=== PATIENT | male | born 1950 | race Caucasian/White ===

== ENCOUNTER → 2025-04-26 | Outpatient (CLI) | payer SELFPAY, OTHER ==
[2025-04-26 11:51] LABS: Hematocrit 39.0 % (40-54); Hemoglobin 12.8 g/dL (13.0-16.5); Immature Granulocytes Count 0.090 X10^3/uL (0.0-0.0); Mean Corp Hgb Conc 32.8 g/dL (32-36); Mean Corpuscular Volume 89.7 fL (80-94); Mean Platelet Vol. 9.7 fl (6.2-12.0); NRBC Flagged by Analyzer 0 % (0-5); Platelet Count 194 K/mm3 (150-450); RBC Distribution Width CV 14.1 % (11.6-14.6); RBC Distribution Width SD 45.6 fl (35.1-43.9); Red Blood Count 4.35 M/mm3 (4.6-6.2); White Blood Count 5.7 K/mm3 (4.4-11.0)
[2025-04-26 12:33] LABS: Anion Gap 9 (5-15); BUN 25 mg/dL (4-19); BUN/Creat Ratio 21.6 RATIO (10-20); Calcium,Total 9.4 mg/dL (7.6-11.0); Carbon Dioxide 25.6 mmol/L (21.0-32.0); Chloride 106 mmol/L (98-108); Glucose 99 mg/dL (70-99); Potassium 4.5 mmol/L (3.3-5.1)
== END | disposition home or self-care (01) ==
PROVIDERS: PCP Family Medicine; Referring Provider Internal Medicine Cardiovascular Disease; Visit Provider Internal Medicine Cardiovascular Disease
DX: R06.09 Other forms of dyspnea (principal); R06.02 Shortness of breath; R53.83 Other fatigue; I10 Essential (primary) hypertension; E78.5 Hyperlipidemia, unspecified
CPT/HCPCS: 36415; 71046; 80048; 85025

== ENCOUNTER → 2025-05-17 | Outpatient (CLI) | payer SELFPAY, OTHER ==
--- NOTE | 2025-05-17 06:42 | ECHOD_ITS ---
Reason For Study Reason For Study: LBBB, HOCM Procedure This was a 2D Doppler, Color Flow transthoracic echocardiogram. Exam performed in department. Left Ventricle Normal LV size. Severe eccentric left ventricular hypertrophy. The left ventricular ejection fraction is 55 %. Stage 1 diastolic dysfunction. Resting LV gradient 52 mmHg. Valsalva LV gradient 95 mmHg. No regional wall motion abnormalities noted. Right Ventricle Normal RV size. Normal systolic function. Atria Normal left atrium. Normal right atrium. Mitral Valve Systolic anterior motion of the mitral valve. Mild (1+) eccentric mitral valve insufficiency. Tricuspid Valve Normal tricuspid valve. Mild (1+) tricuspid valve insufficiency. Pulmonary artery systolic pressure is 34 mmHg. Aortic Valve Trisinus/trileaflet aortic valve. Pulmonic Valve Normal pulmonic valve. Great Vessels Normal aortic root. The pulmonary artery is normal size. Inferior vena cava collapse with respiration. Pericardium/Pleural No pericardial effusion. MMode/2D Measurements & Calculations LVIDd: 4.1 cm IVSd: 2.1 cm Ao root diam: 3.4 cm LVIDs: 2.9 cm LVPWd: 1.3 cm RVDd: 3.4 cm FS: 30.4 % asc Aorta Diam: 3.9 cm LAV(MOD-bp): 58.2 ml LVAd ap4: 30.7 cm2 LAV(MOD-bp) Indexed: 31.3 ml/m2 LVLd ap4: 9.1 cm LAV(MOD-sp2): 63.0 ml EDV(MOD-sp4): 84.2 ml LAV(MOD-sp4): 43.7 ml EDV(sp4-el): 87.6 ml LVAs ap4: 19.2 cm2 LVLs ap4: 7.7 cm ESV(MOD-sp4): 40.5 ml ESV(sp4-el): 40.4 ml EF(MOD-sp4): 51.9 % EF(sp4-el): 53.9 % LVAd ap2: 28.6 cm2 SV(MOD-sp4): 43.7 ml SV(MOD-sp2): 53.3 ml LVLd ap2: 8.4 cm SI(MOD-sp4): 23.5 ml/m2 SI(MOD-sp2): 28.7 ml/m2 EDV(MOD-sp2): 84.6 ml EDV(sp2-el): 82.4 ml LVAs ap2: 16.0 cm2 LVLs ap2: 7.0 cm ESV(MOD-sp2): 31.4 ml ESV(sp2-el): 31.0 ml EF(MOD-sp2): 63.0 % SV(sp4-el): 47.2 ml LA dimension(2D): 3.5 cm LA A4 area: 15.5 cm2 RA A4 area: 13.6 cm2 TAPSE: 1.8 cm Time Measurements MV dec time: 0.31 sec Doppler Measurements & Calculations MV E max nadeem: 54.3 cm/sec Lat Peak E' Nadeem: 5.7 cm/sec Med Peak E' Nadeem: 4.6 cm/sec MV A max nadeem: 80.1 cm/sec E/E' lat: 9.4 E/E' med: 11.7 MV E/A: 0.68 MV V2 max: 91.2 cm/sec MV P1/2t max nadeem: 70.5 cm/sec Ao V2 max: 359.4 cm/sec MV max P.3 mmHg MV P1/2t: 107.7 msec Ao max P.7 mmHg MV V2 mean: 43.2 cm/sec Ao V2 mean: 237.6 cm/sec MV mean P.91 mmHg MV dec slope: 191.8 cm/sec2 Ao mean P.8 mmHg MV V2 VTI: 27.0 cm MVA(P1/2t): 2.0 cm2 Ao V2 VTI: 60.6 cm MR max nadeem: 643.8 cm/sec PA V2 max: 238.1 cm/sec TR max nadeem: 272.1 cm/sec MR max P.8 mmHg TR max P.6 mmHg ECHO/Echo Complete Interpretation Summary Normal LV size. The left ventricular ejection fraction is 55 %. Stage 1 diastolic dysfunction. Severe eccentric left ventricular hypertrophy. Pulmonary artery systolic pressure is 34 mmHg. Resting LV gradient 52 mmHg. Valsalva LV gradient 95 mmHg. The global longitudinal strain is borderline abnormal. Ordering Physician: Thiago Ambrocio Referring Physician: Galdino Brian Performed By: Barbara Seay, RDCS, RVT
== END | disposition home or self-care (01) ==
LOC: CVS 06:41
PROVIDERS: PCP Family Medicine; Referring Provider Internal Medicine Cardiovascular Disease; Visit Provider Internal Medicine Cardiovascular Disease
DX: I42.1 Obstructive hypertrophic cardiomyopathy (principal); I44.7 Left bundle-branch block, unspecified
CPT/HCPCS: 93306; Q9957; A4216

== ENCOUNTER 2025-05-20 07:09 | Day surgery (SDC) | payer SELFPAY, OTHER ==
[2025-05-17 08:11] VITALS: BMI 24.6
--- OUTSIDE RECORDS SUMMARY | 2025-05-20 07:27 | XMS RPT_ITS | CCD ---
Author Organization [facility] Care Team Providers Care Primary Counselor Name Role Phone Dexter SANTOS, Zeb Little Primary Care Provider PHYSICIAN, PATIENT UNSURE Primary Care Physician Unavailable DEXTER SANTOS, MARIO MANNING Primary Care Physician [phone] RENETTA LIU Attending U fabiana PHYSICIAN, PATIENT UNSURE Primary Care JUANCHO Montaño Attending Unavailab Jodi SANTOS, MARIO MANNING Primary Care Unavailab carpenter PHYSICIAN, PATIENT UNSURE Primary Care RENETTA Baez Attending U fabiana PHYSICIAN, PATIENT UNSURE Primary Care Grace Gottlieb MD Attending Unavailable RENETTA LIU Referring U JOSE Elias MD Attending Unavailable PHYSICIAN, PATIENT UNSURE Primary Care JULIETA Araujo Attending Unavailable DONALD SYKES Referring Unavailable ZEB RENTERIA Primary Care Unavailable DONALD SYKES Attending Unavailable ZEB RENTERIA Primary Care Unavailable DONALD SYKES Attending Unavailable ZEB RENTERIA Primary Care Unavailable DONALD SYKES Referring Unavailable JULIETA RAMIREZ Attending Unavailable Dexter SANTOS, Zeb Little Primary Care Provider DULCE GURROLA-REGIS Amaya Unavailable [phone] Solo DAS MD Unavailable GERARD COVARRUBIAS Unavailable Unavailable RAFFAELE SELBY MD Unavailable [phone] ASHOK MIR MD Unavailable [phone] LOLY BOOTH RN Unavailable Unavailable JOSE MIGUEL MILLER Unavailable Unavailable Parul Renteria Unavailable Unavailable Grace RENTERIA MD Unavailable RAFFAELE JARAMILLO Unavailable Unavailable Galina Jones Unavailable Unavailable Unavailable Unavailable Amanda Renteria CNP Primary Care Provider DULCE GURROLA-Jose Luis, REGIS Askew Unavailable Unav ailable PAUL MORRIS, NIKKI Unavailable Unavaila ble DONALD SYKES Attending Unavailable DONALD SYKES Primary Care Unavailable DONALD SYKES Admitting Unavailable Solo DAS Consulting Unavailable PROVIDER, UNKNOWN Consulting Unavailable PROVIDER, UNKNOWN Consulting Unavailable PROVIDER, UNKNOWN Consulting Unavailable DONALD SYKES Attending Unavailable DONALD SYKES Referring Unavailable AMANDA RENTERIA Primary Care Unavailable Rafiq Das Referring Unavailable Roc, Rafiq Primary Care Unavailable LollyAlverto martinezril Attending Unavailable Roc, Rafiq Primary Care Unavailable Lolly, Conroe Referring Unavailable Lolly, Conroe Attending Unavailable Roc, Rafiq Primary Care Unavailable Lolly, Thiago Attending Unavailable Lolly, Conroe Attending Unavailable Korshalini, Rafiq Primary Care Unavailable Lolly, Conroe Referring Unavailable Medications Current Medications Medication Drug Class(es) Dates Sig (Normalized) Sig (Original) amiodarone hydrochloride 200 mg oral tablet (20 sources) Antiarrhythmic Start: 09-03-2021 End: 02-28-2025 take 1 tablet by mouth once daily amiodarone (PACERONE) 200 mg tablet Indications: Stented coronary artery Take 1 tablet by mouth once daily. 90 tablet 3 02/28/2025 Active Comment on above: Take 1 tablet by norma once daily. aspirin 81 mg delayed release oral tablet (20 sources) Platelet Aggregation Inhibitor, Nonsteroidal Anti-inflammatory Drug Start: 08-17-2022 aspirin 81 mg oral delayed release tablet Dose : 81 mg = 1 tab(s), Oral, qDay, # 90 tab(s), 0 Refill(s) Start Date: 08/17/22 Status: Ordered Comment on above: Take 81 mg by mouth once daily. atorvastatin 40 mg oral tablet (20 sources) HMG-CoA Reductase Inhibitor Start: 08-17-2022 Lipitor 40 mg oral tablet Dose : 80 mg = 2 tab(s), Oral, qDay, # 90 tab(s), 0 Refill(s) Start Date: 08/17/22 Status: Ordered Start: 09-03-2021 End: 02-28-2025 take 2 tablets by mouth once daily in the evening atorvastatin (LIPITOR) 40 mg tablet Indications: Hyperlipidemia LDL goal TAKE 2 TABLETS BY MOUTH EVERY EVENING 180 tablet 3 02/28/2025 Active Comment on above: TAKE 2 TABLETS BY MO UTH EVERY EVENING ferrous sulfate 325 mg oral tablet (3 sources) iron 325 mg (65 mg iron) tablet ; 1 daily (325 mg (65 mg iro) 24 hr isosorbide mononitrate 30 mg extended release oral tablet (12 sources) Nitrate Vasodilator Start: 2 End: 6 take 1 tablet by mouth once daily isosorbide mononitrate ER (IMDUR) 30 mg 24 hr tablet Take 1 tablet by mouth once daily. 90 tablet 3 02/28/2025 02/28/2026 Active Comment on above: Take 1 tablet by norma th once daily. Take 30 mg by mouth once daily. lisinopril 10 mg oral tablet (20 sources) Angiotensin Converting Enzyme Inhibitor Start: 1 End: 5 take 1 tablet by mouth once daily lisinopril (ZESTRIL) 10 mg tablet Take 1 tablet by mouth once daily. 90 tablet 3 02/28/2025 Active Comment on above: Take 1 tablet by norma once daily. Take 10 mg by mouth once daily. Cardio Completed/Discontinued Medications Medication Drug Class(es) Dates Sig (Normalized) Sig (Original) acetaminophen 325 mg / HYDROcodone bitartrate 5 mg oral tablet (6 sources) Opioid Agonist Start: 07-27-2013 End: 03-08-2014 take 1-2 tablets by mouth four times daily as needed for pain HYDROCODONE-ACETAMI NOPHEN, 5-325MG (Oral Tablet) ; 1-2 Tablet four times daily as needed for pain for 0 days Quantity: 30 {Tablet} Refills: 0 Ordered: 08-Mar-2014 Start: 27-Jul-2013 End: 08-Mar-2014 Status: Inactive Comments: Medication taken as needed. Comment on above: Medication taken as needed. acetaminophen 325 mg / oxyCODONE hydrochloride 5 mg oral tablet (6 sources) Opioid Agonist Start: 02-20-2020 End: 02-27-2020 take 1 tablet by mouth every four hours as needed oxyCODONE-Acetamino phen 5-325 MG Oral Tablet ; 1 (one) Tablet every four hours, as needed for 7 days Quantity: 28 {Tablet} Refills: 0 Ordered: 26-Mar-2020 MD Grace RENTERIA Start: 20-Feb-2020 End: 27-Feb-2020 Status: Inactive Comments: Medication taken as needed. Comment on above: Medication taken as needed. acyclovir 400 mg oral tablet (6 sources) Herpesvirus Nucleoside Analog DNA Polymerase Inhibitor, Herpes Simplex Virus Nucleoside Analog DNA Polymerase Inhibitor, Herpes Zoster Virus Nucleoside Analog DNA Polymerase Inhibitor Start: 07-18-2019 End: 07-25-2019 take 2 tablets by mouth five times daily Zovirax 400 MG Oral Tablet ; 2 (two) Tablet five times per day for 7 days Quantity: 70 {Tablet} Refills: 0 Ordered: 09-Aug-2019 MD Grace RENTERIA Start: 18-Jul-2019 End: 25-Jul-2019 Status: Inactive amoxicillin 500 mg oral capsule (6 sources) Penicillin-class Antibacterial Start: 08-09-2018 End: 08-19-2018 take 1 tablet by mouth three times daily Amoxicillin 500 MG Oral Capsule ; 1 (one) Tablet three times daily for 10 days Quantity: 30 {Capsule} Refills: 0 Ordered: 09-Oct-2018 MD Grace RENTERIA Start: 09-Aug-2018 End: 19-Aug-2018 Status: Inactive Comments: medication to be dispensed in office Comment on above: medication to be dis pensed in office colistin 3 mg/ml / hydrocortisone 10 mg/ml / neomycin 3.3 mg/ml / thonzonium bromide 0.5 mg/ml otic suspension (6 sources) Aminoglycoside Antibacterial, Corticosteroid Start: 06-13-2010 End: 06-19-2010 CORTISPORIN-TC, 3.3-3-10-0.5MG/ML (Otic Suspension) ; 3 (three) Drop(s) three times daily for 6 days Refills: 0 Ordered: 23-Jun-2010 MD ASHOK MIR Start: 13-Jun-2010 End: 19-Jun-2010 Status: Inactive Comments: disp Comment on above: disp cyclobenzaprine hydrochloride 10 mg oral tablet (12 sources) Muscle Relaxant Start: 02-20-2020 End: 03-01-2020 take 0.5-1 tablets by mouth three times daily Cyclobenzaprine HCl 10 MG Oral Tablet ; 1/2-1 Tablet three times daily for 10 days Quantity: 30 {Tablet} Refills: 0 Ordered: 20-Feb-2020 MD Grace RENTERIA Start: 20-Feb-2020 End: 01-Mar-2020 Status: Inactive Start: 07-27-2013 End: 03-08-2014 take 1 tablet by mouth three times daily as needed CYCLOBENZAPRINE HCL, 10MG (Oral Tablet) ; 1 (one) Tablet three times daily as needed muscle relaxant for 0 days Quantity: 20 {Tablet} Refills: 1 Ordered: 08-Mar-2014 Start: 27-Jul-2013 End: 08-Mar-2014 Status: Inactive Comments: Medication taken as needed. Comment on above: Medication taken as needed. fluticasone propionate 0.05 mg/actuat metered dose nasal spray (6 sources) Corticosteroid Start : 03-27 End: 07-27 FLUTICASONE PROPIONATE, 50MCG/ACT (Nasal Suspension) ; 2 (two) spray(s) at bedtime for 30 days Quantity: 1 {bottle(s)} Refills: 5 Ordered: 27-Jul-2013 Start: 27-Mar-2012 End: 27-Jul-2013 Status: Inactive gabapentin 300 mg oral capsule (6 sources) Anti-epileptic Agent Start : 03-26 End: 06-24 Gabapentin 300 MG Oral Capsule ; 2 (two) Capsule before bed for 90 days Quantity: 180 {Capsule} Refills: 0 Ordered: 26-Mar-2020 MD Grace RENTERIA Start: 26-Mar-2020 End: 24-Jun-2020 Status: Inactive Comments: Do not fill >89 days from date of rx.NEVA Harper Comment on above: Do not fill >89 days from date of rx.NEVA Harper hydroCHLOROthiazide 12.5 mg oral tablet (7 sources) Thiazide Diuretic Start : 12-03 End: 07-26 take 1 tablet by mouth once daily hydroCHLOROthiazide (HYDRODIURIL, ESIDRIX) 12.5 mg tablet Take 1 tablet by mouth once daily. 90 tablet 5 12/03/2020 07/26/2022 Discontinued End: 09-21-2024 take 1 capsule by mouth once daily hydroCHLOROthiazide 12.5 MG Oral Capsule ; 1 daily (on M, W, F) (12.5 MG) End: 21-Sep-2024 Status: Inactive Comment on above: Take 1 tablet by [facility] once daily. hydroCHLOROthiazide 12.5 mg / lisinopril 10 mg oral tablet (6 sources) Thiazide Diuretic, Angiotensin Converting Enzyme Inhibitor take 1 tablet by mouth once daily Lisinopril-Hydr ochlorothiazide 10-12.5 MG Oral Tablet ; 1 daily (10-12.5 MG) Status: Inactive hydrocortisone 10 mg/ml / neomycin 3.5 mg/ml / polymyxin b [id number] unt/ml otic suspension (12 sources) Aminoglycoside Antibacterial, Polymyxin-class Antibacterial, Corticosteroid Start: 04-21-20 End: 09-22-19 neomycin-polymy lexi-hydrocort 3.5 mg-10,000 unit/mL-1 % ear drops,susp ; 1 (one) Metric Drop three times daily for 10 days Quantity: 1 {Each} Refills: 1 Ordered: 21-Sep-2024 Start: 21-Apr-2022 End: 21-Sep-2024 Status: Inactive Comments: 1 bottle Start: 04-21-2022 Neomycin-Polym yxin-HC 3.5-05024-1 Otic Suspension ; 1 (one) Metric Drop three times daily for 10 days Quantity: 1 {Each} Refills: 1 Ordered: 21-Apr-2022 MD Grace RENTERIA Start: 21-Apr-2022 Comments: 1 bottle End: 09-21-2024 Kjptnpwy-[id number]-GH 1 % Ot ic Solution ; 2-3 drops BID prn (1 %) End: 21-Sep-2024 Status: Inactive Comment on above: 1 bottle naproxen 500 mg oral tablet (12 sources) Nonsteroidal Anti-inflammatory Drug Start: 01-15-2015 End: 06-04-2015 take 1 tablet by mouth twice daily as needed NAPROXEN, 500MG (Oral Tablet) ; 1 (one) Tablet two times daily, as needed for 0 days Quantity: 30 {Tablet} Refills: 0 Ordered: 04-Jun-2015 Start: 15-Jan-2015 End: 04-Jun-2015 Status: Inactive Comments: Medication taken as needed. meds to be dispensed in office Start: 03-08-2014 End: 03-15-2014 take 1 tablet by mouth twice daily as needed NAPROXEN, 500MG (Oral Tablet) ; 1 (one) Tablet two times daily, as needed for 7 days Quantity: 14 {Tablet} Refills: 0 Ordered: 15-Mar-2014 MD RAFFAELE SELBY Start: 08-Mar-2014 End: 15-Mar-2014 Status: Inactive Comments: Medication taken as needed. Comment on above: Medication taken as needed. Medication taken as needed. meds to be dispensed in office oxyCODONE hydrochloride 10 mg oral tablet (6 sources) Opioid Agonist take 1 tablet by mouth once daily oxyCODONE HCl 10 MG Oral Tablet ; 1 daily (10 MG) Status: Inactive predniSONE 10 mg oral tablet (12 sources) Start: 5 End: 5 take 1 tablet by mouth once daily at mealtime PREDNISONE (VENECIA), 10MG (Oral Tablet) ; 1 (one) Tablet take as directed for 12 days Quantity: 30 {Tablet} Refills: 0 Ordered: 03-Jun-2015 MD RAFFAELE SELBY Start: 15-Jan-2015 End: 27-Jan-2015 Status: Inactive Comments: Days 1,2,3 = 4 tabs daily; Days 4, 5, 6 = 3 tabs daily; Days 7, 8, 9 = 2 tabs daily; Days 10,11,12 = 1 tab daily; Take with meals. May take each day's dose at one time.meds to be dispensed in office Start: 07-27-2013 End: 03-08-2014 take 3 tablets by mouth once daily, then take 2 tablets by mouth once daily, then take 1 tablet by mouth once daily PREDNISONE, 20MG (Oral Tablet) ; 3 (three) Tablet daily for 4 days, then 2 daily for 4 days, then 1 daily until gone for 0 days Quantity: 25 {Tablet} Refills: 0 Ordered: 08-Mar-2014 Start: 27-Jul-2013 End: 08-Mar-2014 Status: Inactive Comment on above: Days 1,2,3 = 4 tabs daily; Days 4, 5, 6 = 3 tabs daily; Days 7, 8, 9 = 2 tabs daily; Days 10,11,12 = 1 tab daily; Take with meals. May take each day's dose at one time.meds to be dispensed in office tiZANidine 2 mg oral tablet (6 sources) Central alpha-2 Adrenergic Agonist End: 09-21-2024 take 1 tablet by mouth once daily tiZANidine HCl 2 MG Oral Tablet ; 1 daily (2 MG) End: 21-Sep-2024 Status: Inactive Problems Active Problems Problem Classification Problem Date Documented Da te Episodic/Chronic Conduction disorders (1 source) Left bundle-branch block, unspecified; Translations: [Left bundle-branch block, unspecified] Onset: 05-07-2025 Chronic Coronary atherosclerosis and other heart disease (4 sources) Coronary arteriosclerosis; Translations: [Atherosclerotic heart disease of [place] coronary artery without angina pectoris] Onset: 08-23-2022 08-17-2022 Chronic Disorders of lipid metabolism (11 sources) Hyperlipidemia; Translations: [Hyperlipidemia, unspecified] Onset: 02-28-2023 Chronic Essential hypertension (20 sources) Benign essential hypertension; Translations: [Essential (primary) hypertension] Onset: 09-01-2021 Chronic Heart valve disorders (4 sources) Aortic valve stenosis; Translations: [Nonrheumatic aortic (valve) stenosis] Onset: 08-23-2022 08-17-2022 Chronic Immunizations and screening for infectious disease (12 sources) Requires diphtheria, tetanus and pertussis vaccination; Translations: [Encounter for immunization] 12-03-2019 Episodic Malaise and fatigue (1 source) Other fatigue; Translations: [Other fatigue] Onset: 04-26-2025 Episodic Open wounds of extremities (12 sources) Laceration of left index finger; Translations: [Laceration without foreign body of left index finger without damage to nail, initial encounter] 12-03-2019 Episodic Other connective tissue disease (12 sources) Tendinitis of left rotator cuff; Translations: [Other shoulder lesions, left shoulder] 12-09-2021 Episodic Other ear and sense organ disorders (12 sources) Otorrhea of left ear; Translations: [Otorrhea, left ear] 04-21-2022 Episodic Other ear and sense organ disorders (6 sources) Impacted cerumen of bilateral ears; Translations: [Impacted cerumen, bilateral] 06-13-2010 Episodic Other injuries and conditions due to external causes (6 sources) Foreign body in right ear; Translations: [Foreign body in right ear, initial encounter] 09-21-2024 Episodic Comment on above: Removed Other lower respiratory disease (5 sources) Dyspnea; Translations: [Shortness of breath] Onset: 08-02-2022 Episodic Other lower respiratory disease (12 sources) Snoring; Translations: [Snoring] 03-27-2012 Episodic Other lower respiratory disease (1 source) Shortness of breath; Translations: [SOB (shortness of breath)] Onset: 02-28-2025 Episodic Other lower respiratory disease (1 source) Other forms of dyspnea; Translations: [Other forms of dyspnea] Onset: 05-06-2025 Episodic Other nervous system disorders (12 sources) Postoperative pain ; Translations: [Other acute postprocedural pain] 02-20-2020 Episodic Other non-epithelial cancer of skin (20 sources) Unspecified malignant neoplasm of skin, unspecified; Translations: [Malignant neoplasm of skin] Onset: 01-19-2022 Episodic Other non-traumatic joint disorders (12 sources) Pain in right shoulder; Translations: [Pain in joint, shoulder region] 06-04-2015 Episodic Other upper respiratory disease (6 sources) Allergic rhinitis due to pollen; Translations: [Allergic rhinitis due to pollen] 03-27-2012 Chronic Other upper respiratory infections (18 sources) Posterior rhinorrhea; Translations: [Postnasal drip] 11-14-2020 Episodic Otitis media and related conditions (12 sources) Infection of ear; Translations: [Otitis media, unspecified, unspecified ear] 02-20-2020 Episodic Ana-; endo-; and myocarditis; cardiomyopathy (except that caused by tuberculosis or sexually transmitted disease) (1 source) Obstructive hypertrophic cardiomyopathy; Translations: [Obstructive hypertrophic cardiomyopathy] Onset: 05-07-2025 Chronic Residual codes; unclassified (1 source) Never smoked tobacco; Translations: [Other specified health status] Episodic Residual codes; unclassified (4 sources) Non-smoker; Translations: [Other specified health status] Episodic Residual codes; unclassified (4 sources) Personal history of other medical treatment; Translations: [Hx of cardiovascular stress test] Onset: 03-03-2020 Episodic Residual codes; unclassified (2 sources) Other specified health status; Translations: [Non-smoker] Onset: 02-28-2023 Episodic Spondylosis; intervertebral disc disorders; other back problems (12 sources) Intervertebral disc disorder; Translations: [Unspecified thoracic, thoracolumbar and lumbosacral intervertebral disc disorder] Onset: 01-02-2020 03-03-2020 Chronic Spondylosis; intervertebral disc disorders; other back problems (20 sources) Low back pain; Translations: [Lumbago] 03-26-2020 Episodic Sprains and strains (12 sources) Sprain of lumbosacral (joint) (ligament) 03-08-2014 Episodic Unclassified (6 sources) Ear Discharge - Note for "Ear discharge": Pt. states has chronic intermittent drainage from left ear - seen by Abi Hand in [place], [place] and prescribed Neomycin/PolymixinB and Hydrocortisone Otic - uses 2-3 drops BID prn ear drainage up to 10 days. 04-21-2022 Viral infection (6 sources) Herpes zoster without complication; Translations: [Zoster without complications] 07-18-2019 Episodic Past or Other Problems Problem Classification Problem Date Documented Da te Episodic/Chronic Coronary atherosclerosis and other heart disease (20 sources) Stented coronary artery; Translations: [Presence of coronary angioplasty implant and graft] Onset: 03-03-2020 Episodic Headache; including migraine (6 sources) Headache; including migraine 08-09-2018 Residual codes; unclassified (17 sources) History of cardiac catheterization; Translations: [Other specified postprocedural states] Onset: 05-16-2000 Episodic Residual codes; unclassified (20 sources) Past history of procedure; Translations: [Personal history of other medical treatment] Onset: 03-01-2019 Episodic Residual codes; unclassified (2 sources) Other specified postprocedural states; Translations: [Hx of cardiac catheterization] Onset: 03-03-2020 Episodic Unclassified (6 sources) Suture removal - The sutures were placed here. The date the sutures were placed was 01/19/2022. The suture location is Back of Right neck. 02-02-2022 Unclassified (6 sources) !Patient notification of lab results - Dr. Renteria. 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 They said the edges were clear of cancer so it was completely removed and should not come back.Let us know if you have any questions. 01-22-2022 Unclassified (6 sources) Skin lesion - Note for "Skin lesion": Neck - here for excision 01-19-2022 Unclassified (6 sources) Arm pain - Note for "Arm pain": For about 2 months pt has had a sore left arm. Limited range of motion reaching back , lifting up shoulder/arm directly and reaching forward and up. 06-08-2022 Unclassified (6 sources) Cough - The onset of the cough has been gradual and has been occurring for 1 month. The cough is characterized as dry. The amount of sputum produced is scanty. The symptoms are aggravated by supine posture. The symptoms have been associated with runny nose, while the symptoms have not been associated with chest pain. Note for "Cough": Pt. denies fever. He does have drainage in the back of his throat. He has tried OTC medication without relief. 11-14-2020 Unclassified (6 sources) Transition into care - The patient is transitioning into care from another physician (Back surgery performed in [place].). Note for Transition into care": Patient has incisions left lower abdomen and midline lower spine. States that they are healing well. Keeping covered with water proof bandages.Pt reports having episodes of constipation and then loose stool after. States that appetitive has return somewhat. 02-20-2020 Unclassified (6 sources) Pre-Op Visit - The procedure scheduled is a Lumbar cages/disc replacement x3 on 01/10/2020. The surgeon for the procedure will be Surgery in [place]. Note for "Pre-op visit": Pt. has pain in the top of his foot. This is a 35 year old injury. Pt. needs an order for MRSA test and Lumbar MRI. 12-12-2019 Unclassified (6 sources) Immunization - Adacel was given. An immunization information sheet was provided. Note for "For immmunization": Pt had sutures this am. Adacel not given then. 12-03-2019 Unclassified (6 sources) Laceration - The injury occurred on - Date: 12/02/2019. It is located on the fingers. The patient's tetanus immunization is not up to date. Note for "Laceration": left index finger 12-03-2019 Unclassified (6 sources) Sciatica - Note for "Sciatica": RLE pain, difficulty sleeping, needs refill of Gabapentin. Awaits lifting of travel ban to go to [place] for surgery. 10-10-2019 Unclassified (6 sources) Skin changes - The onset of the skin changes has been acute and they have been occurring in a persistent pattern for 4 days. The course has been increasing. The skin changes are described as moderate. Note for "Skin changes": Red rough patch of skin started on mid back and is now spreak around rib cage and on to chest. 07-18-2019 Unclassified (6 sources) Shoulder pain - The shoulder pain has been occurring for 6 months. The shoulder pain is described as being located in the right shoulder. The shoulder pain is aggravated by overhead activity. Note for "Shoulder pain": Worse at night, taking ibuprofen and that helps some so he can sleep. 06-04-2015 Unclassified (6 sources) Shoulder pain - The shoulder pain has been occurring in a persistent pattern for 3 weeks. The course has been constant. The shoulder pain is moderate. The shoulder pain is described as being located in the right shoulder. The shoulder pain is aggravated by overhead activity. There are no relieving factors. Associated features include: muscle weakness and decreased ROM. Note for "Shoulder pain": Pain radiates to right upper arm, no neck pain. Pain worst at night, keeps patient awake. Patient states pain aggravated yesterday when mower fell onto his shoulder. 01-15-2015 Unclassified (6 sources) Back Pain - Note for "Back pain": Patient has been experiencing lower back pain with occasional spasms as well. Patient has been here before for this issue and stated, "I got a shot for it and it helped and I would like another one if I could." 03-08-2014 Unclassified (6 sources) Back Pain Lumbar, Acute - The injury involved the low back. The injury resulted from bending. Symptoms include muscle spasm. Onset was 2 day(s) ago. Note for Acute lumbar back pain": . 07-27-2013 Unclassified (6 sources) Snoring - Symptoms include snoring, while symptoms do not include nocturnal gasping, witnessed nocturnal apnea or excessive daytime sleepiness. 03-27-2012 Unclassified (6 sources) Decreased hearing - The onset of the decreased hearing has been acute and has been occurring in a persistent pattern for 10 days. The course has been constant. It is described as moderate. Note for "Decreased hearing": pt had a "head cold and chest cold" 2 weeks ago and now has decreased hearing. no pain to ears. no fever.No rhin. Mild cough yellow 06-13-2010 Unclassified (3 sources) Foreign body in ear - The foreign body in ear has been occurring for 18 hours. Note for Foreign body in ear": Pt. reports removed hearing aid from right ear last night and part of it remained in ear. Unable to remove per self. 09-21-2024 Results Test Name Value Interpretation Reference Range Facility Basic Metabolic Profile (BMP )on 04-26-2025 BUN/CRE 21.6 RATIO High 04-22 [facility] Comment on above: Performed By: #### L 500.2500, L100.0100 #### [facility] [address] [place], [address] Calcium [Mass/Vol] 9.4 mg/dL Normal 7.6-11.0 [facility]; [facility] Work Phone: Comment on above: Performed By: #### L 500.2500, L100.0100 #### [facility] [address] [place], [address] Chloride [Moles/Vol] 106 mmol/L Normal 98-108 [facility]; [facility] Work Phone: Comment on above: Performed By: #### L 500.2500, L100.0100 #### [facility] [address] [place], [place], [address] (356) CO2 [Moles/Vol] 25.6 mmol/L Normal 21.0-32.0 [facility]; [facility] Work Phone: Comment on above: Performed By: #### L 500.2500, L100.0100 #### [facility] [address] [place], [place], [address] (003) Creatinine [Mass/Vol] 1.16 mg/dL Normal 0.70-1.20 [facility]; [facility] Work Phone: Comment on above: Performed By: #### L 500.2500, L100.0100 #### [facility] [address] [place], [address] GAP 9 Normal 5-15 [facility]; [facility] Work Phone: Comment on above: Performed By: #### L 500.2500, L100.0100 #### [facility] [address] [place], [address] GFR/1.73 sq M.predicted among non-blacks MDRD (S/P/Bld) [Vol rate/Area] 67 mL/min/{1.73_m2} Normal >60 [facility]; [facility] Work Phone: Comment on above: Result Comment: mL/m in/1.73m2 CKD-EPI Creatinine Equation (2020) Performed By: #### L 500.2500, L100.0100 #### [facility] [address] [place], [address] Glucose [Mass/Vol] 99 mg/dL Normal 70-99 [facility]; [facility] Work Phone: Comment on above: Performed By: #### L 500.2500, L100.0100 #### [facility] [address] [place], [address] Potassium [Moles/Vol] 4.5 mmol/L Normal 3.3-5.1 [facility]; [facility] Work Phone: Comment on above: Performed By: #### L 500.2500, L100.0100 #### [facility] [address] [place], [address] Sodium [Moles/Vol] 141 mmol/L Normal 133-145 [facility]; [facility] Work Phone: Comment on above: Performed By: #### L 500.2500, L100.0100 #### [facility] [address] [place], [address] Urea nitrogen [Mass/Vol] 25 mg/dL High 4-19 [facility]; [facility] Work Phone: Comment on above: Performed By: #### L 500.2500, L100.0100 #### [facility] [address] [place], [address] CBC W/Diff, Automatedon 10-2 Absolute Lymph 1.47 X10 3/uL Normal 0.83-4.51 [facility] Comment on above: Performed By: #### L 500.2500, L100.0100 #### [facility] [address] [place], [address] Absolute Neut 3.4 X10 3/uL Normal 2.0-7.7 [facility] Comment on above: Performed By: #### L 500.2500, L100.0100 #### [facility] [address] [place], [address] Basophils/100 WBC (Bld) 0.9 % Normal 0-1 [facility]; [facility] Work Phone: Comment on above: Performed By: #### L 500.2500, L100.0100 #### [facility] [address] [facility] [place], [address] Eosinophils/100 WBC (Bld) 4.0 % Normal 0-5 [facility]; [facility] Work Phone: Comment on above: Performed By: #### L 500.2500, L100.0100 #### [facility] [address] [place], [place], [phone] (181) Erythrocyte distribution width (RBC) [Ratio] 14.1 % Normal 11.6-14.6 [facility]; [facility] Work Phone: Comment on above: Performed By: #### L 500.2500, L100.0100 #### [facility] [address] [place], [place], [address] (561) Hematocrit (Bld) [Volume fraction] 39.0 % Low 40-54 [facility]; [facility] Work Phone: Comment on above: Performed By: #### L 500.2500, L100.0100 #### [facility] [address] [place], [place], [phone] (827) Hemoglobin (Bld) [Mass/Vol] 12.8 g/dL Low 13.0-16.5 [facility]; [facility] Work Phone: Comment on above: Performed By: #### L 500.2500, L100.0100 #### [facility] [address] [facility] [place], [place], [address] (846) IG% 1.600 High 0.0-0.9 [facility]; [facility] Work Phone: Comment on above: Result Comment: IG% - Immature Granulocytes (promyelocytes, myelocytes and metamyelocytes) > 1% indicates that a LEFT SHIFT is Present. Performed By: #### L 500.2500, L100.0100 #### [facility] [address] [place], [place], [phone] (563) Lymphocytes/100 WBC (Bld) 25.9 % Normal 19-41 [facility].; [facility] Work Phone: Comment on above: Performed By: #### L 500.2500, L100.0100 #### [facility] [address] [place], [address] MCH (RBC) [Entitic mass] 29.4 pg Normal 27.0-32.0 [facility]; [facility] Work Phone: Comment on above: Performed By: #### L 500.2500, L100.0100 #### [facility] [address] [place], [address] MCHC (RBC) [Mass/Vol] 32.8 g/dL Normal 32-36 [facility]; [facility] Work Phone: Comment on above: Performed By: #### L 500.2500, L100.0100 #### [facility] [address] [facility] [place], [address] MCV (RBC) [Entitic vol] 89.7 fL Normal 80-94 [facility]; [facility] Work Phone: Comment on above: Performed By: #### L 500.2500, L100.0100 #### [facility] [address] [place], [address] Monocytes/100 WBC (Bld) 8.6 % Normal 0-10 [facility]; [facility] Work Phone: Comment on above: Performed By: #### L 500.2500, L100.0100 #### [facility] [address] [place], [address] Neutrophils/100 WBC (Bld) 59.0 % Normal 47-70 [facility]; [facility] Work Phone: Comment on above: Performed By: #### L 500.2500, L100.0100 #### [facility] [address] [place] [place], [address] Nucleated RBC (Bld) [#/Vol] 0 10*3/uL Normal 0-5 [facility]; [facility]. Work Phone: Comment on above: Performed By: #### L 500.2500, L100.0100 #### [facility] [address] [place] [place], [address] Platelet mean volume (Bld) [Entitic vol] 9.7 fL Normal 6.2-12.0 [facility]; [facility]. Work Phone: Comment on above: Performed By: #### L 500.2500, L100.0100 #### [facility] [address] [place], [address] Platelets (Bld) [#/Vol] 194 10*3/uL Normal 150-450 [facility]; [facility]. Work Phone: Comment on above: Performed By: #### L 500.2500, L100.0100 #### [facility] [address] [place], [address] RBC (Bld) [#/Vol] 4.35 10*6/uL Low 4.6-6.2 [facility]. Work Phone: Comment on above: Performed By: #### L 500.2500, L100.0100 #### [facility] [address] [place], [address] RDW SD 45.6 fL High 35.1-43.9 [facility]; [facility] Work Phone: Comment on above: Performed By: #### L 500.2500, L100.0100 #### [facility] [address] [place], [address] WBC (Bld) [#/Vol] 5.7 10*3/uL Normal 4.4-11.0 [facility]; [facility] Work Phone: Comment on above: Performed By: #### L 500.2500, L100.0100 #### [facility] [address] [place], [address] Cardiology Visit Reporton Cardiology Visit Report [facility] [address] [place] [address] OFFICE VISIT Date of Service: 04/26/25 MR#: [id number] Acct: [id number] Name: GUNNAR RENTERIA Justus Rep #: [id number] : 1950 Provider: Dr. Thiago Ambrocio MD Age/Sex: 74/M Location: [facility] Status: Signed HPI HPI History of Present Illness Details: The patient is a 74-year-old male with a history of CAD, status post LAD stent placement in 2017, and a 70% circumflex artery stenosis, presenting for evaluation of worsening chest pain. The patient reports experiencing chest tightness described as feeling like a "fist," along with weakness and intermittent lightheadedness. He notes that these symptoms have worsened slightly over the fall. He also experiences dyspnea, particularly after eating, but has not tried any antacids for relief. He denies using nitroglycerin. He underwent a stress test recently, which suggested a possible blockage. The stress test demonstrated a reversible defect in the basal to mid inferior wall and inferoseptal wall suggesting ischemia in this territory. A prior heart catheterization about two years ago revealed a 70% blockage in the circumflex artery. He had a normal stress test before that catheterization. In 2017, he had a stent placed in the LAD. Interestingly his echocardiogram which had been performed 2 years ago demonstrated an ejection fraction of 45 to 50% basal septal left ventricular hypertrophy with LVOT obstruction present with a ventricular septum thickness severely increased to 2.2 cm and outflow septum had a sigmoid appearance. There was systolic anterior motion noted of the mitral valve as well as mild to moderate mitral regurgitation directed eccentrically and posteriorly. His physical exam is significant for clear lung najera regular rate and rhythm soft 2/6 systolic murmur noted left sternal border worsening with Valsalva and his electrocardiogram demonstrates sinus bradycardia with a rate of 52 bpm and a left bundle branch block. He mentions that his blood pressure is currently on the lower side, and his heart rate was noted to be slow during the recent stress test. He has a known bundle branch block. He is a member of the [facility] community and is associated with [employer]. Intake Vital Signs 04/26/25 09:19 Height 5 ft 8 in Weight: 162 lb BMI 24.6 BP 119/72 Blood Pressure Location Lt brachial Position Sitting Respiration 16 Pulse 57 L Pulse Source Monitor Intake Visit Reasons: EST/NEEDS CATH (GROSS) Telephonic Case Manager Required: No Accompanied by: Self Is patient in pain?: No Allergies No Known Allergies Allergy (Unverified 04/26/25 09:16) Medications ???Medication ???Instructions ???Recorded ???Confirmed ???Type aspirin 81 mg tablet,delayed 81 mg PO QDAY 04/17/25 04/26/25 Hi story release (Adult Aspirin Regimen) atorvastatin 40 mg tablet (Lipitor) 80 mg PO QDAY 04/17/25 04/26/25 History ferrous sulfate 325 mg (65 mg 325 mg PO QDAY 04/17/25 04/26/25 H istory iron) tablet isosorbide mononitrate 30 mg 30 mg PO QDAY 04/17/25 04/26/25 Hi story tablet,extended release 24 hr lisinopril 10 mg tablet 10 mg PO QDAY 04/17/25 04/26/25 Hi story vitamins A,C,H-ricb-geizjs 4,296 1 cap PO QAM AND QPM 04/17/2504/04 History mcg-226 mg-90 mg capsule (PreserVision AREDS) Supra Prostate PO 04/26/25 04/26/25 History glucosamine sulfate 500 mg capsule 500 mg PO QDAY 04/26/25 04/26/25 History Ejection fraction %: 51 Have you fallen in the past year?: Yes PFSH Medical History Intervertebral disc disease Hyperlipidemia Fatigue GOINS (dyspnea on exertion) Essential (primary) hypertension Surgical History History of back surgery History of left heart catheterization (LHC) (02/15/17) Family History Father Myocardial infarction Mother Myocardial infarction Sister CAD (coronary artery disease) Social History Smoking Status: Never smoker alcohol intake: never substance use type: does not use ROS Const Const: Negative for fatigue, weakness, daytime sleepiness or difficulty sleeping ENT ENT: Negative for dizziness or Nosebleed/epistaxis Cardio Chest Pain: Yes Frequency: daily Character: tightness Onset: exercise and with meals Location: mid sternal Duration: minutes Exacerbation: rest Palpitations: Yes (fluttering at times ) Resp Respiratory: Positive for SOB with activity; Negative for SOB at rest, SOB orthopnea SOB lying down or Cough GI GI: Negative nausea, vomiting or heartburn Neuro Neuro: Negative for dizziness, lighthea (more content not included)... Normal [facility] Chest PA and Lateralon 04-26 Chest PA and Lateral [facility] Services [address] [place] [address] Chest PA and Lateral MR#: [id number] Acct: [id number] Name: GUNNAR RENTERIA Rep #: [id number] : 1950 M 74 From: Bg Steele MD PCP: Dr. Rafiq Das MD Status: REG CLI Study: Chest PA and Lateral Date of Exam: 04/26/25 Exam# [id number] Ordering Dr: Thiago Ambrocio MD PROCEDURE: CHEST PA AND LATERAL 04/26/2025 REASON FOR EXAM: SOB TECHNIQUE: Procedure Code: RADCXR Modality: DX Procedure: CHEST PA AND LATERAL COMPARISON: None FINDINGS: There is scarring in the upper lobe of the left lung. The lungs are otherwise clear. There are no pleural effusions. There is cardiomegaly. There is calcific vascular disease of the thoracic aorta. The upper abdominal bowel gas pattern is normal. There are findings of DISH throughout the thoracic spine. RAD/Chest PA and Lateral IMPRESSION: Scarring in the left lung. Cardiomegaly. Reading Location: [place] [address] CC: Dr. Thiago Ambrocio MD; Dr. Rafiq Das MD Contract Processor: Signed Normal [facility] No Panel Informationon 04-26 Absolute Lymph 1.47 {X10_3/uL} Normal 0.83 - 4.5 1 {X10_3/uL} [facility] [employer] Work Phone: Absolute Neut 3.4 {X10_3/uL} Normal 2.0 - 7.7 {X10_3/uL} [facility] [employer] Work Phone: BUN/CRE 21.6 {RATIO} Abnormal 10 - 20 {RATIO} [facility] [employer] Work Phone: [facility] 03-15-2025 [facility] Telephone ([employer]) GUNNAR RENTERIA ([id number]) 1950 M Date Time Provider Department 03/15/25 DONALD SKYES During your visit today, we recorded the following information about you: Tati Morfin MA 03/15/2025 1:31 PM Signed There is a stress test in scanned documents for you to review. Thanks! KATHRINE Raines Wayne David, DO 03/17/2025 5:49 AM Signed Stress test suggest he has blockages again and may need another stent needs another heart catheterization please set up a heart catheterization Loly Renteria RN 03/18/2025 9:55 AM Signed Message left for patient to return call. Needs updated that Dr Sykes wants him to have a heart cath due to stress test suggest he has blockages again and may need another stent Loly Renteria RN 03/18/2025 11:21 AM Signed Patient is aware of the need for a heart cath. Stated he is checking around for the best [place] and will let us know where he wants to have the heart cath done. Loly Renteria RN 03/18/2025 11:14 AM Signed Addended by: LOLY RENTERIA on: 03/18/2025 11:14 AM Modules accepted: Loly Bernstein RN 03/18/2025 11:20 AM Signed Addended by: LOLY RENTERIA on: 03/18/2025 11:20 AM Modules accepted: Michael Casanova 03/18/2025 3:09 PM Signed Patient called back and would like to go to [facility] if at all possible because they are the cheapest. Loly Renteria RN 03/18/2025 3:18 PM Signed Please sign order for heart cath. Patient will need the order to have scheduled at [facility]. Loly Renteria RN 03/18/2025 3:18 PM Signed Addended by: LOLY RENTERIA on: 03/18/2025 03:18 PM Modules accepted: Donald Casanova DO 03/18/2025 4:19 PM Signed Addended by: DONALD SYKES on: 03/18/2025 04:19 PM Modules accepted: Michael Casanova 03/19/2025 2:24 PM Signed Spoke to [employer] [facility]. Patient will need seen by a provider at their Cardiovascular office and be scheduled. I also left a message for patient and the [facility] Liaison at [facility] to return my call. Spoke to the [facility] ([phone]) and they state that I can fax patient's information to them if patient would like to proceed with this. Michael Sykes 03/19/2025 3:13 PM Signed Patient called back and would like his information sent to [facility] to be seen and be scheduled for a heart cath. Faxed patient's information to [phone] Allergies As of Date: 03/15/2025 (No Known Allergies) Date Reviewed: 02/28/2025 Reviewed by: Tati Morfin MA - Fully Assessed Primary Visit Diagnosis:Abnormal stress test [R94.39] Order(s):CATH PLMT L HRT AND ARTS W/NJX AND ANGIO IMG DUKE [14170NWF] Order #: [id number] Prescriptions as of 03/19/2025 - amiodarone (PACERONE) 200 mg tablet Take 1 tablet by mouth once daily. - atorvastatin (LIPITOR) 40 mg tablet TAKE 2 TABLETS BY MOUTH EVERY EVENING - isosorbide mononitrate ER (IMDUR) 30 mg 24 hr tablet Take 1 tablet by mouth once daily. - lisinopril (ZESTRIL) 10 mg tablet Take 1 tablet by mouth once daily. - aspirin, enteric coated (ASPIRIN, ENTERIC COATED) 81 mg EC tablet Take 81 mg by mouth once daily. Problem List As Of Date 03/15/2025 Noted Resolved Stented coronary artery [Z95.5] Hx of cardiovascular stress test [Z92.89] 03/01/2019 Hx of cardiac catheterization [Z98.890] 05/16/2000 Intervertebral disk disease [M51.9] 01/2020 Primary hypertension [I10] Hyperlipidemia LDL goal <55 [E78.5] Encounter Status:Closed by DONALD SYKES on 03/17/25 [facility] Carol Ann 03-07-2025 LIT Telephone ([place]) GUNNAR RENTERIA ([id number]) 1950 M Date Time Provider Department 03/07/25 DONALD SYKES During your visit today, we recorded the following information about you: Michael Sykes 03/07/2025 9:03 AM Signed Patient called regarding stress test and asked due to him having the [employer] if he could have the order faxed to [facility] as they were giving him a cheaper rate. Order faxed to [phone] Allergies As of Date: 03/07/2025 (No Known Allergies) Date Reviewed: 02/28/2025 Reviewed by: Tati Morfin MA - Fully Assessed Reason for Visit: Appointment [186] Prescriptions as of 03/07/2025 - amiodarone (PACERONE) 200 mg tablet Take 1 tablet by mouth once daily. - atorvastatin (LIPITOR) 40 mg tablet TAKE 2 TABLETS BY MOUTH EVERY EVENING - isosorbide mononitrate ER (IMDUR) 30 mg 24 hr tablet Take 1 tablet by mouth once daily. - lisinopril (ZESTRIL) 10 mg tablet Take 1 tablet by mouth once daily. - aspirin, enteric coated (ASPIRIN, ENTERIC COATED) 81 mg EC tablet Take 81 mg by mouth once daily. Problem List As Of Date 03/07/2025 Noted Resolved Stented coronary artery [Z95.5] Hx of cardiovascular stress test [Z92.89] 03/01/2019 Hx of cardiac catheterization [Z98.890] 05/16/2000 Intervertebral disk disease [M51.9] 01/2020 Benign essential HTN [I10] 09/01/2021 Encounter Status:Closed by MICHAEL SYKES on 03/07/25 [facility] CNOVon 02-28-2025 CNOV Office Visit (CAUCANDY ) GUNNAR RENTERIA ([id number]) 1950 M Date Time Provider Department 02/28/25 11:15 AM DONALD SYKES During your visit today, we recorded the following information about you: Pulse Blood pressure Weight Height 59/minute 102/56 73.6 kg 1.727 m Donald Sykes DO 03/01/2025 8:43 AM Signed Referring Provider: Donald Sykes DO Date: February 28, 2025 Chief Complaint: Established Patient (1 year follow-up HTN) Heart cath done on 08/25/2022 showed, EF is 45-50%. CX has 70% stenosis. Stress test done on 08/02/2022 showed, EF 42%. No stress-induced reversible perfusion abnormality is seen. Mildly decreased cardiac systolic function. Stent done on 02/15/2017, DON Synergy to LAD last heart catheterization demonstrated 70% circumflex Echo done on 10/26/2022 showed, EF is 45-50%. Grade II diastolic Dysfunction. Mild AR. Mild to Moderate MR. CRISTIAN is 2.9cm. Trivial TR and ME. Basal septal LVH is noted. HISTORY OF PRESENT ILLNESS: Gunnar Renteria is a 74 year old male who presents for Established Patient (1 year follow-up HTN). ALLERGIES No Known Allergies PAST MEDICAL HISTORY: PAST MEDICAL HISTORY Diagnosis Date Benign essential HTN GOINS (dyspnea on exertion) Fatigue History of cardiovascular stress test 08/02/2022 EF 42%. No stress-induced reversible perfusion abnormality is seen. Mildly decreased cardiac systolic function. History of echocardiogram 10/26/2022 EF is 45-50%. Grade II diastolic Dysfunction. Mild AR. Mild to Moderate MR. CRISTIAN is 2.9cm. Trivial TR and ME. Basal septal LVH is noted. History of left heart catheterization 08/25/2022 EF is 45-50%. CX has 70% stenosis. Hx of cardiac catheterization 02/02/2017 Severe disease noted in the proximal portion of the LAD and is a ring like lesion concentric stenosis Hx of cardiac catheterization 05/16/2000 EF 55% normal coronary arteries normal EF mildly elevated LVEDP normal aortic systolic BP Hx of cardiovascular stress test 03/01/2019 lexiscan protocol small inferior septal wall scar no ischemia apical wall dyskinesis. Dilated LV LBBB with multiple wide complexes that increased with exercise. Hyperlipidemia with target LDL less than 70 Intervertebral disk disease 01/2020 L3-L4 and lifts L1 L2 done in [place] Stented coronary artery 02/15/2017 DON Synergy to LAD PAST SURGICAL HISTORY Procedure Laterality Date BACK SURGERY HX 01/2020 History reviewed. No pertinent family history. SOCIAL HISTORY: Tobacco Use: Never Alcohol Use: Not Currently Drug Use: Never Employer And Job Title: None on file Years Of Education Completed: Not specified Marital Status: MEDICATIONS: Current Outpatient Medications Medication Sig lisinopril (ZESTRIL) 10 mg tablet take one tablet by mouth once daily atorvastatin (LIPITOR) 40 mg tablet TAKE 2 TABLETS BY MOUTH EVERY EVENING isosorbide mononitrate ER (IMDUR) 30 mg 24 hr tablet Take 1 tablet by mouth once daily. amiodarone (PACERONE) 200 mg tablet Take 1 tablet by mouth once daily. aspirin, enteric coated (ASPIRIN, ENTERIC COATED) 81 mg EC tablet Take 81 mg by mouth once daily. No current facility-administered medications for this visit. I have personally reviewed the patients past medical history including social, family, surgical, diagnostics, and medications. REVIEW OF SYSTEMS: Review of Systems Constitutional: Positive for fatigue. Negative for chills. Respiratory: Positive for chest tightness and shortness of breath. Cardiovascular: Negative for chest pain, palpitations and leg swelling. Neurological: Positive for dizziness. Negative for syncope, weakness and light-headedness. Hematological: Bruises/bleeds easily. Psychiatric/Behavioral : Negative for confusion and hallucinations. Vitals: BP 102/56 (BP Site: Left Arm, BP Position: Sitting) Pulse (!) 59 Ht 172.7 cm (5' 8") Wt 73.6 kg (162 lb 4.1 oz) BMI 24.67 kg/m? PHYSICAL EXAMINATION: BP 102/56 (BP Site: Left Arm, BP Position: Sitting) Pulse (!) 59 Ht 172.7 cm (5' 8") Wt 73.6 kg (162 lb 4.1 oz) BMI 24.67 kg/m? Last 3 Encounter BP Readings: Date: BP: 02/29/2024 126/80 02/28/2023 122/70 08/05/2022 124/62 Last 3 Encounter Pulse Readings: Date: Pulse: 02/29/2024 47 02/28/2023 50 08/05/2022 60 Last 3 Encounter Wt Readings: Date: Wt: 02/29/2024 74.4 kg (164 lb 0.4 oz) 02/28/2023 74.4 kg (164 lb 1.3 oz) 08/05/2022 75.3 kg (166 lb) Physical Exam Vitals reviewed. Constitutional: General: He is not in acute distress. Cardiovascular: Rate and Rhythm: Normal rate and regular rhythm. Pulses: Carotid pulses are 2+ on the right side and 2+ on the left side. Radial pulses are 2+ on the right side and 2+ on the left side. Femoral pulses are 2+ on the right side and 2+ on the left side. Popliteal pulses are 2+ on the right side and 2+ on the left s (more content not included)... [facility] ECG COMPLETEon 02-28-2025 ECG COMPLETE Ventricular Rate : 5 9 BPM Atrial Rate : 59 BPM P-R Interval : 180 ms QRS Duration : 154 ms Q-T Interval : 464 ms QTC Calculation(Bazett) : 459 ms Calculated P [place] : 53 degrees Calculated R [place] : 23 degrees Calculated T [place] : -29 degrees Sinus bradycardia Left bundle branch block Abnormal ECG Confirmed by DONALD SYKES DO ([id number]) on 03/03/2025 7:14:55 AM NAME : GUNNAR RENTERIA PID : [id number] : 1950 Gender : Male Race : ORD : [id number] Procedure Date : Feb 28 2025 11:05:04 Edit Date : Mar 03 2025 07:14:57 Diagnosis: Sinus bradycardia Left bundle branch block Abnormal ECG Confirmed by DONALD SYKES DO ([id number]) on 03/03/2025 7:14:55 AM Test Reason : HCS Location : 2 : UPC[place] Overread By : DONALD SKYES DO Edited By : DONALD SYKES DO Referred By : DONALD SYKES Acquired by : [id number], [facility] CNOVon 02-28-2023 CNOV Office Visit (CAUPDO ) GUNNAR RENTERIA ([id number]) 1950 M Date Time Provider Department 02/28/23 11:00 AM DONALD SYKES CAUPDO During your visit today, we recorded the following information about you: Pulse Blood pressure Weight Height 50/minute 122/70 74.4 kg 1.727 m Donald Sykes, 03/01/2023 5:45 AM Signed Referring Provider: No ref. provider found Date: February 28, 2023 Chief Complaint: Established Patient Follow-Up (6 month follow up, hx of Cath and . ) HISTORY OF PRESENT ILLNESS: Gunnar Renteria is a 72 year old male who presents for Established Patient Follow-Up (6 month follow up, hx of Cath and . ). Has a stent in the LAD. Just recently had a heart catheterization. The stent in LAD was wide open. Doing a heart catheterization with aortic valve area was found to be not stenotic ALLERGIES No Known Allergies PAST MEDICAL HISTORY: PAST MEDICAL HISTORY Diagnosis Date Benign essential HTN GOINS (dyspnea on exertion) Fatigue History of cardiovascular stress test 08/02/2022 EF 42%. No stress-induced reversible perfusion abnormality is seen. Mildly decreased cardiac systolic function. History of echocardiogram 10/26/2022 EF is 45-50%. Grade II diastolic Dysfunction. Mild AR. Mild to Moderate MR. CRISTIAN is 2.9cm. Trivial TR and ME. Basal septal LVH is noted. History of left heart catheterization 08/25/2022 EF is 45-50%. CX has 70% stenosis. Hx of cardiac catheterization 02/02/2017 Severe disease noted in the proximal portion of the LAD and is a ring like lesion concentric stenosis Hx of cardiac catheterization 05/16/2000 EF 55% normal coronary arteries normal EF mildly elevated LVEDP normal aortic systolic BP Hx of cardiovascular stress test 03/01/2019 lexiscan protocol small inferior septal wall scar no ischemia apical wall dyskinesis. Dilated LV LBBB with multiple wide complexes that increased with exercise. Hyperlipidemia with target LDL less than 70 Intervertebral disk disease 01/2020 L3-L4 and lifts L1 L2 done in [place] Stented coronary artery 02/15/2017 DON Synergy to LAD PAST SURGICAL HISTORY Procedure Laterality Date BACK SURGERY HX 01/2020 History reviewed. No pertinent family history. SOCIAL HISTORY: Tobacco Use: Never Alcohol Use: Not Currently Drug Use: Never Employer And Job Title: None on file Years Of Education Completed: Not specified Marital Status: MEDICATIONS: Current Outpatient Medications Medication Sig isosorbide mononitrate ER (IMDUR) 30 mg 24 hr tablet Take 30 mg by mouth once daily. atorvastatin (LIPITOR) 40 mg tablet TAKE 2 TABLETS BY MOUTH EVERY EVENING lisinopril (ZESTRIL, PRINIVIL) 10 mg tablet Take 1 tablet by mouth once daily. amiodarone (PACERONE) 200 mg tablet Take 1 tablet by mouth once daily. aspirin, enteric coated (ASPIRIN, ENTERIC COATED) 81 mg EC tablet Take 81 mg by mouth once daily. No current facility-administered medications for this visit. I have personally reviewed the patients past medical history including social, family, surgical, diagnostics, and medications. REVIEW OF SYSTEMS: Review of Systems Constitutional: Negative for chills and fatigue. Respiratory: Negative for chest tightness and shortness of breath. Cardiovascular: Negative for chest pain, palpitations and leg swelling. Neurological: Negative for dizziness, syncope, weakness and light-headedness. Hematological: Bruises/bleeds easily. Psychiatric/Behavioral : Negative for confusion and hallucinations. Vitals: BP 122/70 (BP Site: Left Arm, BP Position: Sitting, BP Cuff Size: Regular Adult) Pulse (!) 50 Ht 172.7 cm (5' 8") Wt 74.4 kg (164 lb 1.3 oz) BMI 24.95 kg/m? PHYSICAL EXAMINATION: BP 122/70 (BP Site: Left Arm, BP Position: Sitting, BP Cuff Size: Regular Adult) Pulse (!) 50 Ht 172.7 cm (5' 8") Wt 74.4 kg (164 lb 1.3 oz) BMI 24.95 kg/m? Last 3 Encounter BP Readings: Date: BP: 08/05/2022 124/62 07/26/2022 170/84 09/02/2021 136/80 Last 3 Encounter Pulse Readings: Date: Pulse: 08/05/2022 60 07/26/2022 53 09/02/2021 54 Last 3 Encounter Wt Readings: Date: Wt: 08/05/2022 75.3 kg (166 lb) 07/26/2022 77.6 kg (171 lb) 09/02/2021 73 kg (161 lb) Physical Exam Vitals reviewed. Constitutional: General: He is not in acute distress. Cardiovascular: Rate and Rhythm: Normal rate and regular rhythm. Pulses: Carotid pulses are 2+ on the right side and 2+ on the left side. Radial pulses are 2+ on the right side and 2+ on the left side. Femoral pulses are 2+ on the right side and 2+ on the left side. Popliteal pulses are 2+ on the right side and 2+ on the left side. Dorsalis pedis pulses are 2+ on the right side and 2+ on the left side. Posterior tibial pulses are 2+ on the right side and 2+ on the left side. Heart sounds: Murmur heard. Systolic murmur is present with a grade o (more content not included)... Normal [facility] ECG COMPLETEon 02-28-2023 ECG COMPLETE Ventricular Rate : 5 0 BPM Atrial Rate : 50 BPM P-R Interval : 194 ms QRS Duration : 164 ms Q-T Interval : 520 ms QTC Calculation(Bazett) : 474 ms Calculated P [place] : 55 degrees Calculated R [place] : -6 degrees Calculated T [place] : 56 degrees SINUS BRADYCARDIA COMPLETE LEFT BUNDLE BRANCH BLOCK ABNORMAL ECG NO PREVIOUS ECGS AVAILABLE Confirmed by DONALD SYKES DO ([id number]) on 03/07/2023 4:44:24 PM NAME : GUNNAR RENTERIA PID : [id number] : 1950 Gender : Male Race : ORD : [id number] Procedure Date : Feb 28 2023 11:02:20 Edit Date : Mar 07 2023 16:44:29 Diagnosis: SINUS BRADYCARDIA COMPLETE LEFT BUNDLE BRANCH BLOCK ABNORMAL ECG NO PREVIOUS ECGS AVAILABLE Confirmed by DONALD SYKES DO ([id number]) on 03/07/2023 4:44:24 PM Test Reason : Location : 606 : UPS Overread By : DONALD SYKES DO Edited By : DONALD SYKES DO Referred By : DONALD SYKES Acquired by : [id number], Normal [facility] .Auto Diffon 08-23-2022 Basophil, Absolute 0.0 10 3/mcL Normal 0.0-0.2 [facility] ([place] Comment on above: Performed By: #### C BC, ADIFF, BMP, ANEU, GFR #### [address] [address] Basophils/100 WBC (Bld) 0.8 % Normal 0.0-2.5 [facility] [place] Comment on above: Performed By: #### C BC, ADIFF, BMP, ANEU, GFR #### [address] [address] Eosinophil, Absolute 0.2 10 3/mcL Normal 0.0-0.4 [facility] [place] Comment on above: Performed By: #### C BC, ADIFF, BMP, ANEU, GFR #### [address] [address] Eosinophils/100 WBC (Bld) 3.9 % Normal 0.0-7.0 [facility] ([place]) Comment on above: Performed By: #### C BC, ADIFF, BMP, ANEU, GFR #### [address] [address] Lymphocyte, Absolute 0.9 10 3/mcL Normal 0.8-3.9 [facility] [place] Comment on above: Performed By: #### C BC, ADIFF, BMP, ANEU, GFR #### [address] [address] Lymphocytes/100 WBC (Bld) 17.7 % Normal 10.0-50.0 [facility] [place] Comment on above: Performed By: #### C BC, ADIFF, BMP, ANEU, GFR #### [address] [address] Monocyte, Absolute 0.4 10 3/mcL Normal 0.2-1.0 [facility] ([place] Comment on above: Performed By: #### C BC, ADIFF, BMP, ANEU, GFR #### [address] [address] Monocytes/100 WBC (Bld) 7.0 % Normal 1.7-13.0 [facility] [place] Comment on above: Performed By: #### C BC, ADIFF, BMP, ANEU, GFR #### [address] [address] Neutrophils/100 WBC (Bld) 70.6 % Normal 37.0-80.0 [facility] [place] Comment on above: Performed By: #### C BC, ADIFF, BMP, ANEU, GFR #### [address] [place], [place] [address] .GFRon 08-23-2022 GFR 76 ml/min/1.73sqm Normal [facility] [place] Comment on above: Result Comment: GFR Population mean for , Non- Americans Ages 20-29 = 116 mL/min/1.73 sq.m. Ages 30-39 = 107 mL/min/1.73 sq.m. Ages 40-49 = 99 mL/min/1.73 sq.m. Ages 50-59 = 93 mL/min/1.73 sq.m. Ages 60-69 = 85 mL/min/1.73 sq.m. Ages 70+ = 75 mL/min/1.73 sq.m. Chronic Kidney Disease: Less than 60 mL/min/1.73 square meters End Stage Renal Disease: Less than 15 mL/min/1.73 square meters Performed By: #### C BC, ADIFF, BMP, ANEU, GFR #### [address] [place], [place] [address] GFR Non- 63 ml/min/1.73sqm Normal [facility] [place] Comment on above: Result Comment: GFR Population mean for , Non- Americans Ages 20-29 = 116 mL/min/1.73 sq.m. Ages 30-39 = 107 mL/min/1.73 sq.m. Ages 40-49 = 99 mL/min/1.73 sq.m. Ages 50-59 = 93 mL/min/1.73 sq.m. Ages 60-69 = 85 mL/min/1.73 sq.m. Ages 70+ = 75 mL/min/1.73 sq.m. Chronic Kidney Disease: Less than 60 mL/min/1.73 square meters End Stage Renal Disease: Less than 15 mL/min/1.73 square meters Performed By: #### C BC, ADIFF, BMP, ANEU, GFR #### [address] [address] .NEUABSon 08-23-2022 Neutrophil, Absolute 3.6 10 3/mcL Normal 2.9-6.2 [facility] [place] Comment on above: Performed By: #### C BC, ADIFF, BMP, ANEU, GFR #### [address] [address] BMPon 08-23-2022 BUN/Creatinine Ratio 20 ratio Normal 7-27 [facility] [place] Comment on above: Performed By: #### C BC, ADIFF, BMP, ANEU, GFR #### [address] [address] Calcium [Mass/Vol] 8.8 mg/dL Normal 8.4-10.2 [facility] ([place] Comment on above: Performed By: #### C BC, ADIFF, BMP, ANEU, GFR #### [place] [id number] Chloride [Moles/Vol] 105 mmol/L Normal 98-107 [facility] [place] Comment on above: Performed By: #### C BC, ADIFF, BMP, ANEU, GFR #### [address] [address] CO2 [Moles/Vol] 29 mmol/L Normal 23-31 [facility] ([place] Comment on above: Performed By: #### C BC, ADIFF, BMP, ANEU, GFR #### [address] [address] Creatinine [Mass/Vol] 1.15 mg/dL Normal 0.70-1.30 [facility] [place] Comment on above: Performed By: #### C BC, ADIFF, BMP, ANEU, GFR #### [address] [address] Electrolyte Balance 7.0 mEq/L Normal 4.0-15.0 [facility] ([place] Comment on above: Performed By: #### C BC, ADIFF, BMP, ANEU, GFR #### [address] [address] Glucose [Mass/Vol] 94 mg/dL Normal 83-110 [facility] ([place] Comment on above: Performed By: #### C BC, ADIFF, BMP, ANEU, GFR #### [address] [address] Potassium [Moles/Vol] 4.5 mmol/L Normal 3.5-5.1 [facility] [place] Comment on above: Performed By: #### C BC, ADIFF, BMP, ANEU, GFR #### [address] [address] Sodium [Moles/Vol] 141 mmol/L Normal 136-145 [facility] ([place] Comment on above: Performed By: #### C BC, ADIFF, BMP, ANEU, GFR #### [address] [address] Urea nitrogen [Mass/Vol] 23 mg/dL High 7-18 [facility] [place] Comment [place] above: Performed By: #### C BC, ADIFF, BMP, ANEU, GFR #### [address] [address] CBCon 08-23-2022 Erythrocyte distribution width (RBC) [Ratio] 19.7 % High 11.5-14.5 [facility] [place] Comment on above: Performed By: #### C BC, ADIFF, BMP, ANEU, GFR #### [address] [address] Hematocrit (Bld) [Volume fraction] 37.9 % Low 42.0-52.0 [facility] [place] Comment on above: Performed By: #### C BC, ADIFF, BMP, ANEU, GFR #### [address] [address] Hgb 12.3 G/dL Low 14.0-18.0 [facility] [place] Comment on above: Performed By: #### C BC, ADIFF, BMP, ANEU, GFR #### [address] [address] MCH (RBC) [Entitic mass] 25.2 pg Low 27.0-31.2 [facility] [place] Comment on above: Performed By: #### C BC, ADIFF, BMP, ANEU, GFR #### [address] [address] MCHC 32.6 G/dL Normal 31.8-35.4 [facility] [place] Comment on above: Performed By: #### C BC, ADIFF, BMP, ANEU, GFR #### [address] [address] MCV (RBC) [Entitic vol] 77.4 fL Low 80.0-94.0 [facility] [place] Comment on above: Performed By: #### C BC, ADIFF, BMP, ANEU, GFR #### [address] [address] Platelet 232 10 3/mcL Normal 130-400 [facility] ([place] Comment on above: Performed By: #### C BC, ADIFF, BMP, ANEU, GFR #### [address] [address] Platelet mean volume (Bld) [Entitic vol] 8.3 fL Normal 7.4-10.4 [facility] [place] Comment on above: Performed By: #### C BC, ADIFF, BMP, ANEU, GFR #### [address] [address] RBC 4.89 10 6/mcL Normal 4.04-6.13 [facility] ([place] Comment on above: Performed By: #### C BC, ADIFF, BMP, ANEU, GFR #### [address] [address] WBC 5.1 10 3/mcL Normal 4.6-10.8 [facility] ([place] Comment on above: Performed By: #### C BC, ADIFF, BMP, ANEU, GFR #### [address] [address] PROon 08-23-2022 PT Coag (PPP) [Time] 11.2 s Normal 9.1-14.2 [facility] [place] Comment [place] above: Performed By: #### C SUSANA RON, CARLOS EDUARDO, ANEU, GFR #### [address] [address] PT International Ratio 1.0 [facility] ([place] Comment on above: Result Comment: The [employer] (CHEST, 1992, 102:312S-25S) recommended therapeutic range for oral anticoagulant therapy is: LOW RISK: Prophylaxis of venous thrombosis INR: 2.0-3.0 Treatment of pulmonary embolism 2.0-3.0 Prevention of systemic embolism 2.0-3.0 HIGH RISK: Mechanical prosthetic valves 2.5-3.5 Performed By: #### C ARIADNE, SUSANA, BMP, ANEU, GFR #### [address] [address] CNOVon 08-05-2022 CNOV Office Visit (CAUPDO ) GUNNAR RENTERIA ([id number]) 1950 M Date Time Provider Department 08/05/22 9:00 AM DONALD SYKES CAUPDO During your visit today, we recorded the following information about you: Pulse Blood pressure Weight Height 60/minute 124/62 75.3 kg 1.727 m Donald Sykes DO 08/06/2022 3:33 AM Signed Referring Provider: Donald Sykes DO Date: August 05, 2022 Chief Complaint: Established Patient Follow-Up (Follow up for Stress Test results. ) HISTORY OF PRESENT ILLNESS: Gunnar Renteria is a 72 year old male who presents for Established Patient Follow-Up (Follow up for Stress Test results. ). ALLERGIES No Known Allergies PAST MEDICAL HISTORY: PAST MEDICAL HISTORY Diagnosis Date Benign essential HTN GOINS (dyspnea on exertion) Fatigue History of cardiovascular stress test 08/02/2022 EF 42%. No stress-induced reversible perfusion abnormality is seen. Mildly decreased cardiac systolic function. Hx of cardiac catheterization 02/02/2017 Severe disease noted in the proximal portion of the LAD and is a ring like lesion concentric stenosis Hx of cardiac catheterization 05/16/2000 EF 55% normal coronary arteries normal EF mildly elevated LVEDP normal aortic systolic BP Hx of cardiovascular stress test 03/01/2019 lexiscan protocol small inferior septal wall scar no ischemia apical wall dyskinesis. Dilated LV LBBB with multiple wide complexes that increased with exercise. Hyperlipidemia with target LDL less than 70 Intervertebral disk disease 01/2020 L3-L4 and lifts L1 L2 done in [place] Stented coronary artery 02/15/2017 DON Synergy to LAD PAST SURGICAL HISTORY Procedure Laterality Date BACK SURGERY HX 01/2020 History reviewed. No pertinent family history. SOCIAL HISTORY: Tobacco Use: Never Alcohol Use: Not Currently Drug Use: Never Employer And Job Title: None on file Years Of Education Completed: Not specified Marital Status: MEDICATIONS: Current Outpatient Medications Medication Sig lisinopril (ZESTRIL, PRINIVIL) 10 mg tablet Take 10 mg by mouth once daily. amiodarone (PACERONE) 200 mg tablet Take 1 tablet by mouth once daily. atorvastatin (LIPITOR) 40 mg tablet TAKE 2 TABLETS BY MOUTH EVERY EVENING aspirin, enteric coated (ASPIRIN, ENTERIC COATED) 81 mg EC tablet Take 81 mg by mouth once daily. No current facility-administered medications for this visit. I have personally reviewed the patients past medical history including social, family, surgical, diagnostics, and medications. REVIEW OF SYSTEMS: Review of Systems Constitutional: Negative for chills and fatigue. Respiratory: Positive for chest tightness and shortness of breath. Cardiovascular: Negative for chest pain, palpitations and leg swelling. Neurological: Positive for syncope and light-headedness. Negative for dizziness and weakness. Hematological: Bruises/bleeds easily. Psychiatric/Behavioral : Negative for confusion and hallucinations. Vitals: BP 124/62 (BP Site: Left Arm, BP Position: Sitting, BP Cuff Size: Regular Adult) Pulse 60 Ht 172.7 cm (5' 8") Wt 75.3 kg (166 lb) SpO2 94% BMI 25.24 kg/m? PHYSICAL EXAMINATION: BP 124/62 (BP Site: Left Arm, BP Position: Sitting, BP Cuff Size: Regular Adult) Pulse 60 Ht 172.7 cm (5' 8") Wt 75.3 kg (166 lb) SpO2 94% BMI 25.24 kg/m? Last 3 Encounter BP Readings: Date: BP: 07/26/2022 170/84 09/02/2021 136/80 12/03/2020 120/80 Last 3 Encounter Pulse Readings: Date: Pulse: 07/26/2022 53 09/02/2021 54 12/03/2020 50 Last 3 Encounter Wt Readings: Date: Wt: 07/26/2022 77.6 kg (171 lb) 09/02/2021 73 kg (161 lb) 12/03/2020 72.6 kg (160 lb 1.9 oz) Physical Exam Vitals reviewed. Constitutional: General: He is not in acute distress. Cardiovascular: Rate and Rhythm: Normal rate and regular rhythm. Pulses: Carotid pulses are 2+ on the right side and 2+ on the left side. Radial pulses are 2+ on the right side and 2+ on the left side. Femoral pulses are 2+ on the right side and 2+ on the left side. Popliteal pulses are 2+ on the right side and 2+ on the left side. Dorsalis pedis pulses are 2+ on the right side and 2+ on the left side. Posterior tibial pulses are 2+ on the right side and 2+ on the left side. Heart sounds: Murmur heard. Systolic murmur is present with a grade of 2/6. Comments: PMI not displaced. 2nd heart sound loud. Pulmonary: Effort: Pulmonary effort is normal. Breath sounds: Normal breath sounds. Abdominal: General: Abdomen is flat. Bowel sounds are normal. Palpations: Abdomen is soft. Tenderness: There is no abdominal tenderness. Musculoskeletal: Right lower leg: No edema. Left lower leg: No edema. Skin: General: Skin is warm. Findings: No rash or wound. Neurological: Mental Status: He is alert and oriented to person, place, and time. Coordination: (more content not included)... [facility]CAUPDO[facility] DEXTERGUNNAR ([id number]) 1950 M Date Time Provider Department 08/05/22 DONALD SYKES During your visit today, we recorded the following information about you: Loly Renteria RN 08/05/2022 9:48 AM Signed Prior authorization request for heart cath to be done at [facility] with Dr Espinal is being submitted for review. Please notify clerical staff when ready. ALEXANDRA Kohli 08/05/2022 12:37 PM Signed No auth required for self pay Tyler Echevarria 08/06/2022 11:26 AM Signed Spoke with Monika at [facility] today. Patient's heart cath appointment is pending due to financial clearance. Monika is hoping to hear back on Tuesday that procedure was approved. Mari Echevarria August 06, 2022 11:26 AM Loly Renteria RN 08/09/2022 9:34 AM Signed Patient called in asking for an estimated amount of the heart cath since he is self pay. I called Tamela and got a phone number for patient to call. Left message on patient's voice mail per his permission with the number for him to call. Michael Sykes 08/09/2022 11:30 AM Signed Patient states that he has called around and his heart cath will be about $10,000 cheaper if he goes to [facility] or [facility]. He is asking if we can refer him to one of them Please advise Donald Sykes DO 08/09/2022 2:54 PM Addendum Make referral to dr shane at [place] for cath Loly Renteria RN 08/09/2022 3:22 PM Signed Please sign consult order. Spoke to patient's and let her know we will send the referral for patient to Dr Shane. Verbalized agreeable. Loly Renteria RN 08/09/2022 3:23 PM Signed Addended by: LOLY RENTERIA on: 08/09/2022 03:23 PM Modules accepted: Orders Donald Sykes DO 08/10/2022 4:38 AM Signed Addended by: DONALD SYKES on: 08/10/2022 04:38 AM Modules accepted: Orders Fany Hernandez MA 08/10/2022 8:45 AM Signed Consult faxed. Allergies As of Date: 08/05/2022 (No Known Allergies) Date Reviewed: 08/05/2022 Reviewed by: Fany Hernandez MA - Fully Assessed Reason for Visit: PA for heart cath [Other] Primary Visit Diagnosis:Chest heaviness [R07.89] Order(s):CONSULT TO CARDIOLOGY [9004] Order #: [id number]: 1 FUTURE Prescriptions as of 08/10/2022 - lisinopril (ZESTRIL, PRINIVIL) 10 mg tablet Take 10 mg by mouth once daily. - amiodarone (PACERONE) 200 mg tablet Take 1 tablet by mouth once daily. - atorvastatin (LIPITOR) 40 mg tablet TAKE 2 TABLETS BY MOUTH EVERY EVENING - aspirin, enteric coated (ASPIRIN, ENTERIC COATED) 81 mg EC tablet Take 81 mg by mouth once daily. Problem List As Of Date 08/05/2022 Noted Resolved Stented coronary artery [Z95.5] Hx of cardiovascular stress test [Z92.89] 03/01/2019 Hx of cardiac catheterization [Z98.890] 05/16/2000 Intervertebral disk disease [M51.9] 01/2020 Benign essential HTN [I10] 09/01/2021 Encounter Status:Closed by LOLY RENTERIA on 08/05/[address] [facility] NM LISETTE SPECT MULTI [id number] 08-02-2022 NM LISETTE SPECT MULTI [id number] [address] [id number] Name: GUNNAR RENTERIA Phys: JULIETA RAMIREZ C.N.P. : [birth year] Age: 72 Sex: M Acct: [id number] Loc: CARD Exam Date: 08/02/22 Status: REG CLI Radiology No.: Unit Number: [id number] Exam # Type/Exam [id number] NM / NM LISETTE SPECT MULTI [id number] EXAMINATION: CARDIAC SPECT08/02/2022 11:30 am TECHNIQUE: Lexiscan dose: 0.4 mg IV Radiopharmaceutical (rest and stress doses): Tc-99m Myoview IV 10.4 and 31.3 mCi SPECT acquisition and processing: Images reconstructed into short, vertical long, and horizontal long axis planes. Wall motion evaluation and quantitative LVEF assessment. COMPARISON: None HISTORY: ORDERING SYSTEM PROVIDED HISTORY: SOB FINDINGS: Decreased perfusion involving the basal anteroseptal wall, basal to mid inferoseptal wall, apex and basal inferolateral wallon supine post-stress images resolves on prone post stress images, likely represents soft tissue attenuation. There is no stress-induced reversible perfusion abnormality. No fixed perfusion defect is seen to suggest infarction. The left ventricular end-diastolic volume is 158 mL. Gated imaging demonstrates no regional wall motion abnormality. Estimated left ventricular ejection fraction is 42 %. TID ratio is normal at 1.1. IMPRESSION: 1. No stress-induced reversible perfusion abnormality is seen. 2. There is mildly decreased cardiac systolic function with estimated ejection fraction of 42 %. Electronically signed By Robert Anderson MD 08/02/2022 12:04:26 PM EST Workstation ID : [id number] < > Reported By: ROBERT ANDERSON M.D. Signed In Fluency By: ROBERT ANDERSON M.D. << Signature on File>> Reported By: ROBERT ANDERSON M.D. Signed By: ROBERT ANDERSON M.D. Tests performed at: [place] [address] Normal [facility] NUCLEAR STRESS TEST(Wt < 440 #)on 08-02-2022 NUCLEAR STRESS TEST(Wt < 440#) [place] [address] HEALTH INFORMATION MANAGEMENT CARDIOLOGY REPORT Patient: GUNNAR RENTERIA KATELYTito Askew C.N.P. [id number] [age] M Status: REG CLI CARD Exam # Type/Exam [id number] CARD / NUCLEAR STRESS TEST(Wt < 440#) DATE OF SERVICE: 08/02/2022 PHYSICIAN: Julieta Ramirez. REASON FOR TEST: Shortness of breath. MEDICAL THERAPY: 1. Lisinopril. 2. Atorvastatin. 3. Amiodarone. PROTOCOL: Lexiscan. HEMODYNAMICS: Resting blood pressure 164/80, resting heart rate 52. Vinod blood pressure after Lexiscan administration 150/78, resting heart rate 52, maximum heart rate 67. SYMPTOMOLOGY: Mild shortness of breath. CONCLUSION: The patient completed stress test via Lexiscan protocol. Hemodynamic response normal EKG with left bundle-branch block. Nuclear report reported separately by radiologist. The supervising and interpreting provider, France Starks CNP, is immediately available and in the department. Dr. Donald Sykes is available by phone for collaboration if needed. Report#: Dict ID [id number] / Int ID [id number] 08/02/22 1259 FRANCE STARKS C.N.P. cc: JULIETA RAMIREZ C.N.P.; Grace RENTERIA M.D. << Signature on File>> Reported By: FRANCE STARKS C.N.P. Signed By: FRANCE STARKS C.N.P. Tests performed at: [address] [address] [facility] No Panel Informationon 08-02 [facility] CNOVon 07-26-2022 CNOV Office Visit (CAUPDO ) GUNNAR RENTERIA ([id number]) 1950 M Date Time Provider Department 07/26/22 8:40 AM JULIETA RAMIREZ During your visit today, we recorded the following information about you: Pulse Blood pressure Weight Height 53/minute 170/84 77.6 kg 1.727 m Julieta Ramirez APRN.CNP 07/26/2022 10:10 AM Signed [facility] Department of Cardiology Referring Provider: Self Date: July 26, 2022 Subjective: Gunnar Jerome Renteria is a 72 year old, established male who presents increased SOB. Patient reports that with all activities he has been noticing an increase in shortness of breath. His son has even pointed out that he is short of breath and fatigues very easily. Patient denies any headaches, dizziness, or syncopal episodes. Patient denies any chest pain or chest discomfort. ALLERGIES No Known Allergies PAST MEDICAL HISTORY: PAST MEDICAL HISTORY Diagnosis Date Benign essential HTN GOINS (dyspnea on exertion) Fatigue Hx of cardiac catheterization 02/02/2017 Severe disease noted in the proximal portion of the LAD and is a ring like lesion concentric stenosis Hx of cardiac catheterization 05/16/2000 EF 55% normal coronary arteries normal EF mildly elevated LVEDP normal aortic systolic BP Hx of cardiovascular stress test 03/01/2019 lexiscan protocol small inferior septal wall scar no ischemia apical wall dyskinesis. Dilated LV LBBB with multiple wide complexes that increased with exercise. Hyperlipidemia with target LDL less than 70 Intervertebral disk disease 01/2020 L3-L4 and lifts L1 L2 done in [place] Stented coronary artery 02/15/2017 DON Synergy to LAD PAST SURGICAL HISTORY Procedure Laterality Date BACK SURGERY HX 01/2020 History reviewed. No pertinent family history. SOCIAL HISTORY: Tobacco Use: Never Alcohol Use: Not Currently Drug Use: Never Employer And Job Title: None on file Years Of Education Completed: Not specified Marital Status: MEDICATIONS: Current Outpatient Medications Medication Sig amiodarone (PACERONE) 200 mg tablet Take 1 tablet by mouth once daily. atorvastatin (LIPITOR) 40 mg tablet TAKE 2 TABLETS BY MOUTH EVERY EVENING aspirin, enteric coated (ASPIRIN, ENTERIC COATED) 81 mg EC tablet Take 81 mg by mouth once daily. isosorbide mononitrate ER (IMDUR) 30 mg 24 hr tablet Take 1 tablet by mouth once daily. (Patient not taking: Reported on 07/26/2022) lisinopril (ZESTRIL, PRINIVIL) 10 mg tablet Take 1 tablet by mouth once daily. (Patient not taking: No sig reported) hydroCHLOROthiazide (HYDRODIURIL, ESIDRIX) 12.5 mg tablet Take 1 tablet by mouth once daily. (Patient not taking: No sig reported) No current facility-administered medications for this visit. I have personally reviewed the patients past medical history including social, family, surgical, diagnostics, and medications./AB REVIEW OF SYSTEMS: Review of Systems Constitutional: Negative for chills and fatigue. Respiratory: Positive for shortness of breath. Negative for chest tightness. Cardiovascular: Positive for chest pain. Negative for palpitations and leg swelling. Neurological: Positive for light-headedness. Negative for dizziness, syncope and weakness. Hematological: Bruises/bleeds easily. Psychiatric/Behavioral : Negative for confusion and hallucinations. Vitals: BP 170/84 (BP Site: Left Arm, BP Position: Sitting, BP Cuff Size: Large Adult) Pulse (!) 53 Ht 172.7 cm (5' 8") Wt 77.6 kg (171 lb) SpO2 98% BMI 26.00 kg/m? PHYSICAL EXAMINATION: BP 170/84 (BP Site: Left Arm, BP Position: Sitting, BP Cuff Size: Large Adult) Pulse (!) 53 Ht 172.7 cm (5' 8") Wt 77.6 kg (171 lb) SpO2 98% BMI 26.00 kg/m? Last 3 Encounter BP Readings: Date: BP: 09/02/2021 136/80 12/03/2020 120/80 03/03/2020 118/70 Last 3 Encounter Pulse Readings: Date: Pulse: 09/02/2021 54 12/03/2020 50 03/03/2020 57 Last 3 Encounter Wt Readings: Date: Wt: 09/02/2021 73 kg (161 lb) 12/03/2020 72.6 kg (160 lb 1.9 oz) 03/03/2020 69 kg (152 lb 1.9 oz) Physical Exam Vitals reviewed. Constitutional: General: He is not in acute distress. Appearance: Normal appearance. He is not ill-appearing or diaphoretic. HENT: Head: Normocephalic. Right Ear: External ear normal. Left Ear: External ear normal. Nose: Nose normal. Mouth/Throat: Mouth: Mucous membranes are moist. Eyes: Extraocular Movements: Extraocular movements intact. Cardiovascular: Rate and Rhythm: Normal rate and regular rhythm. Pulses: Normal pulses. Carotid pulses are 2+ on the right side and 2+ on the left side. Radial pulses are 2+ on the right side and 2+ on the left side. Femoral pulses are 2+ on the right side and 2+ on the left side. Popliteal pulses are 2+ on the right side and 2+ on the left side. Dorsalis pedis pulses are 2+ on the right side and 2+ (more content not included)... Normal [facility] Carol Ann 07-26-2022 CNPN Telephone (CAUPDO) GUNNAR RENTERIA ([id number]) 1950 M Date Time Provider Department 07/26/22 JULIETA RAMIREZ CAUPDO During your visit today, we recorded the following information about you: Aston Camarillo MA 07/26/2022 9:29 AM Signed Prior authorization request for [place] Cardiac Perf Stress/Pharm is being submitted for review. TO BE DONE AT [facility] KATHRINE Easley 07/27/2022 9:37 AM Signed No auth required for Self pay Tyler Sykes 07/27/2022 11:25 AM Signed Scheduled stress at [facility] 08/02 at 745 am Patient's advised of date,time and instructions Order faxed Allergies As of Date: 07/26/2022 (No Known Allergies) Date Reviewed: 07/26/2022 Reviewed by: Aston Camarillo MA - Fully Assessed Reason for Visit: PA for NM Cardiac Perf Stress/Pharm [Other] Prescriptions as of 07/27/2022 - amiodarone (PACERONE) 200 mg tablet Take 1 tablet by mouth once daily. - atorvastatin (LIPITOR) 40 mg tablet TAKE 2 TABLETS BY MOUTH EVERY EVENING - aspirin, enteric coated (ASPIRIN, ENTERIC COATED) 81 mg EC tablet Take 81 mg by mouth once daily. Problem List As Of Date 07/26/2022 Noted Resolved Stented coronary artery [Z95.5] Hx of cardiovascular stress test [Z92.89] 03/01/2019 Hx of cardiac catheterization [Z98.890] 05/16/2000 Intervertebral disk disease [M51.9] 01/2020 Benign essential HTN [I10] 09/01/2021 Encounter Status:Closed by MICHAEL SYKES on 07/27/[address] [facility] Supplemental Reporton 2021 Supplemental Report . Pathology Reports Accession: Collected Date/Time: Received Date/Time: Pathologist: [id number] 01/19/2022 10:47 EDT 01/20/2022 08:51 MD LINDY EISENBERG Supplemental Report SUPPLEMENTAL: IMMUNOPEROXIDASE STAIN FOR LIVIER IS UTILIZED IN EVALUATION OF THIS CASE. Electronically Signed by Pathology Report verified by [facility] Electronically signed by LINDY KEENE MD Sign out Date: 01/25/2022 15:34 Performing Lab: [address] Final Surgical Pathology Report DIAGNOSIS: SKIN, POSTERIOR NECK, EXCISION - ULCERATED BASAL CELL CARCINOMA. MARGINS NEGATIVE. CLINICAL INFORMATION: POSTERIOR NECK LESION SPECIMEN: A SKIN, POSTERIOR NECK LESION GROSS DESCRIPTION: A. Received in formalin, labeled with the patients name, Case #[id number], and posterior neck lesion is a unoriented ellipse of skin measuring 2.4 x 1.1 and excised to a maximum depth of 0.7 cm. Centrally located on the skin surface is a scott-diaz raised crust measuring 0.7 x 0.5 cm. Excision margin inked black. TS -2 Dictated by RAFIQ CRAWFORD MICROSCOPIC DESCRIPTION: Slides reviewed. Electronically Signed by Pathology Report verified by [facility] Electronically signed by LINDY KEENE MD Sign out Date: 01/22/2022 07:13 Performing Lab: [address] ([place]) Final Surgical Pathology Rep [facility] 01-22-2022 Final Surgical Pathology Report . Pathology Reports Accession: Collected Date/Time: Received Date/Time: Pathologist: [id number] 01/19/2022 10:47 EDT 01/20/2022 08:51 MD LINDY EISENBERG Final Surgical Pathology Report DIAGNOSIS: SKIN, POSTERIOR NECK, EXCISION - ULCERATED BASAL CELL CARCINOMA. MARGINS NEGATIVE. CLINICAL INFORMATION: POSTERIOR NECK LESION SPECIMEN: A SKIN, POSTERIOR NECK LESION GROSS DESCRIPTION: A. Received in formalin, labeled with the patients name, Case #[id number], and posterior neck lesion is a unoriented ellipse of skin measuring 2.4 x 1.1 and excised to a maximum depth of 0.7 cm. Centrally located on the skin surface is a scott-diaz raised crust measuring 0.7 x 0.5 cm. Excision margin inked black. TS -2 Dictated by RAFIQ CRAWFORD MICROSCOPIC DESCRIPTION: Slides reviewed. Electronically Signed by Pathology Report verified by [facility] Electronically signed by LINDY KEENE MD Sign out Date: 01/22/2022 07:13 Performing Lab: [facility], [address] [place] [address] [facility] ([place] No Panel Informationon 01-19 Final Surgical Pathology Report See Note Normal [facility] Supplemental Report See Note Normal [facility] [place] - [facility] Work Phone: Coronavirus 2019on 0 COVID 19 Result [employer]OOF [employer] Normal Negative for COVID19 (SARS CoV2) by PCR. [facility] Reference Lab Comment on above: Result Comment: Nega tive for This test was developed and its performance characteristics determined by [facility]'s [facility] Pathology and [facility] [place]. This test has been authorized by FDA under an Emergency Use Authorization (EUA). This test has been validated in accordance with the FDA's Guidance Document "Policy for Diagnostics Testing in Laboratories Certified to Perform High Complexity Testing under CLIA prior to Emergency use Authorization for Coronavirus Disease 2019 during the Public Health Emergency" issued on September 01, 2019. COVID19 (SARS This test was developed and its performance characteristics determined by [facility]'s [facility] Pathology [facility] [place]. This test has been authorized by FDA under an Emergency Use Authorization (EUA). This test has been validated in accordance with the FDA's Guidance Document "Policy for Diagnostics Testing in Laboratories Certified to Perform High Complexity Testing under CLIA prior to Emergency use Authorization for Coronavirus Disease 2019 during the Public Health Emergency" issued on September 01, 2019. CoV2) by PCR. This test was developed and its performance characteristics determined by [facility]'s [facility] Pathology and Laboratory [facility] [place]. This test has been authorized by FDA under an Emergency Use Authorization (EUA). This test has been validated in accordance with the FDA's Guidance Document "Policy for Diagnostics Testing in Laboratories Certified to Perform High Complexity Testing under CLIA prior to Emergency use Authorization for Coronavirus Disease 2019 during the Public Health Emergency" issued on September 01, 2019. 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 [facility] Reference Lab Comment on above: Result Comment: Nega tive for This test was developed and its performance characteristics determined by [facility]'s [facility] Pathology [facility] [place]. This test has been authorized by FDA under an Emergency Use Authorization (EUA). This test has been validated in accordance with the FDA's Guidance Document "Policy for Diagnostics Testing in Laboratories Certified to Perform High Complexity Testing under CLIA prior to Emergency use Authorization for Coronavirus Disease 2019 during the Public Health Emergency" issued on September 01, 2019. COVID19 (SARS This test was developed and its performance characteristics determined by [facility]'s [facility] Pathology [facility] [place]. This test has been authorized by FDA under an Emergency Use Authorization (EUA). This test has been validated in accordance with the FDA's Guidance Document "Policy for Diagnostics Testing in Laboratories Certified to Perform High Complexity Testing under CLIA prior to Emergency use Authorization for Coronavirus Disease 2019 during the Public Health Emergency" issued on September 01, 2019. CoV2) by PCR. This test was developed and its performance characteristics determined by [facility] Pathology and Laboratory [facility] [place]. This test has been authorized by FDA under an Emergency Use Authorization (EUA). This test has been validated in accordance with the FDA's Guidance Document "Policy for Diagnostics Testing in Laboratories Certified to Perform High Complexity Testing under CLIA prior to Emergency use Authorization for Coronavirus Disease 2019 during the Public Health Emergency" issued on September 01, 2019. 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 MICRO - Microbiology PROCEDURE: MRSA PCR [*1] SOURCE: Nares BODY SITE: COLLECTED DATE/TIME: 12/19/2019 10:34 EDT RECEIVED DATE/TIME: 12/19/2019 20:42 EDT START DATE/TIME: 12/19/2019 20:43 EDT FREE TEXT SOURCE: FINAL REPORTS Final Report [] Verified Date/Time/Personnel: 12/20/2019 10:38 EDT MRSA NEGATIVE. MRSA DNA not detected by Real-Time Polymerase Chain Reaction (PCR). A negative result may be due to intermittent colonization. Colonization may vary depending on patient treatment, patient status or exposure to high risk environments. As with all PCR based in vitro tests, extremely low levels of target below the limit of detection of the assay may be detected, but results may not be reproducible. Performing Locations *1: This test was performed at: [address], [address] [place] [address] ([place]) Comment on above: Performed By: #### M RPCR #### [place] [id number] No Panel Informationon 12-18 MRSA PCR See Note [facility]. CWDon 12-14-2019 CWD . MICRO - Microbiology PROCEDURE: Culture Wound Aerobic with Gram Stain [*1] SOURCE: Wound (surface) BODY SITE: Back COLLECTED DATE/TIME: 12/12/2019 13:30 EDT RECEIVED DATE/TIME: 12/12/2019 22:18 EDT START DATE/TIME: 12/12/2019 22:19 EDT FREE TEXT SOURCE: Low back FINAL REPORTS Final Report [] Verified Date/Time/Personnel: 12/14/2019 14:10 EDT Light Normal skin young present. Sensitivity testing not indicated. PRELIMINARY REPORTS Preliminary Report [] Verified Date/Time/Personnel: 12/13/2019 12:47 EDT Culture results pending. STAINS GS [] Verified Date/Time/Personnel: 12/12/2019 23:57 EDT 3+ Epithelial cells 2+ Gram Positive Cocci Performing Locations *1: This test was performed at: [address], [facility] , [facility] ([place]) Comment on above: Performed By: #### C WD #### [place] [id number] No Panel Informationon 12-11 Culture Wound Aerobe See Note [facility] Vital Signs Date Time Vital Sign Value Performing Clinician Facility 02-28-2025 11:10-0400 Body height 172.7 cm [employer] Work Phone: [facility] 02-28-2025 11:10-0400 Body mass index (BMI) [Ratio] 24.67 kg/m2 [employer] Work Phone: [facility] 02-28-2025 11:10-0400 Body weight 73.6 kg [employer] Work Phone: [facility] 02-28-2025 11:10-0400 Diastolic blood pressure 56 mm[Hg] [employer] Work Phone: [facility] 02-28-2025 11:10-0400 Heart rate 59 /min [employer] Work Phone: [facility] 02-28-2025 11:10-0400 Systolic blood pressure 102 mm[Hg] [employer] Work Phone: [facility] 09-21-2024 13:17-0400 Body height 175.26 cm NIKKI MILLER [facility]. 09-21-2024 13:17-0400 Body mass index (BMI) [Ratio] 25.55 kg/m2 NIKKI MILLER RN [facility].; [facility]. 09-21-2024 13:17-0400 Body surface area Derived from formula 1.94 m2 NIKKI MILLER RN [facility]. 09-21-2024 13:17-0400 Body weight 78.47 kg NIKKI MILLER RN [facility].; [facility]. 09-21-2024 13:17-0400 Diastolic blood pressure 63 mm[Hg] NIKKI MILLER RN [facility].; [facility] Comment on above: Patient Position: Sitting; Cuff Location : Left Arm; Cuff Size: Standard 09-21-2024 13:17-0400 Heart rate 70 /min NIKKI MILLER RN [facility] Comment on above: Pattern: Regular 09-21-2024 13:17-0400 Systolic blood pressure 102 mm[Hg] NIKKI MILLER RN [facility].; [facility] Comment on above: Patient Position: Sitting; Cuff Location : Left Arm; Cuff Size: Standard 02-29-2024 11:16-0400 Body height 172.7 cm Donald [employer] DO Work Phone: [facility] 02-29-2024 11:16-0400 Body mass index (BMI) [Ratio] 24.94 kg/m2 Donald Gross DO Work Phone: [facility] 02-29-2024 11:16-0400 Body weight 74.4 kg Donald Gross DO Work Phone: [facility] 02-29-2024 11:16-0400 Diastolic blood pressure 80 mm[Hg] Donald Gross DO Work Phone: [facility] 02-29-2024 11:16-0400 Heart rate 47 /min Donald Gross DO Work Phone: [facility] 02-29-2024 11:16-0400 Systolic blood pressure 126 mm[Hg] Donald Gross DO Work Phone: [facility] 02-28-2023 10:55-0400 Body height 172.7 cm Donald Gross DO Work Phone: [facility] 02-28-2023 10:55-0400 Body weight 74.43 kg Donald Gross DO Work Phone: [facility] 02-28-2023 10:55-0400 Diastolic blood pressure 70 mm[Hg] Donald Gross DO Work Phone: [facility] 02-28-2023 10:55-0400 Heart rate 50 /min Donald Gross DO Work Phone: [facility] 02-28-2023 10:55-0400 Systolic blood pressure 122 mm[Hg] Donald Gross DO Work Phone: [facility] 08-25-2022 14:36-0500 Blood Pressure Location JOSE SHANE MD [facility] 08-25-2022 14:36-0500 Blood Pressure Method JOSE SHANE MD [facility] 08-25-2022 14:36-0500 Diastolic Blood Pressure Non-Invasive 68 1 JOSE SHANE MD [address] 08-25-2022 14:36-0500 Heart rate 58 /min JOSE SHANE MD [facility] 08-25-2022 14:36-0500 Systolic Blood Pressure Non-Invasive 138 1 JOSE SHANE MD [facility] 08-25-2022 14:20-0500 Diastolic Blood Pressure Non-Invasive 92 1 JOSE SHANE MD [facility] 08-25-2022 14:20-0500 Heart rate 60 /min JOSE SHANE MD [facility] 08-25-2022 14:20-0500 Systolic Blood Pressure Non-Invasive 162 1 JOSE SHANE MD [facility] 08-25-2022 13:55-0500 Diastolic Blood Pressure Non-Invasive 82 1 JOSE SHANE MD [facility] 08-25-2022 13:55-0500 Heart rate 64 /min JOSE SHANE MD [facility] 08-25-2022 13:55-0500 Systolic Blood Pressure Non-Invasive 160 1 JOSE SHANE MD [facility] 08-25-2022 13:40-0500 Blood Pressure Method JOSE SHANE MD [address] [place] [address] 08-25-2022 13:40-0500 Respiratory rate 16 /min JOSE SHANE MD [address] [place] [address] 08-25-2022 10:15-0500 Blood Pressure Location JOSE SHANE MD [address] [place] [address] 08-25-2022 10:15-0500 Blood Pressure Method JOSE SHANE MD [address] [place] [address] 08-25-2022 10:15-0500 Body height 172.7 cm JOSE SHANE MD [address] [place] [address] 08-25-2022 10:15-0500 Body temperature 97.52 [degF] JOSE SHANE MD [address] [place] [address] 08-25-2022 10:15-0500 Body weight 74.9 kg JOSE SHANE MD [address] [place] [address] 08-25-2022 10:15-0500 Body weight 25.11 kg/m2 JOSE SHANE MD [address] [place] [address] 08-25-2022 10:15-0500 Respiratory rate 16 /min JOSE SHANE MD [address] [place] [address] 08-05-2022 08:54-0500 Body height 172.7 cm Donald [employer] DO Work Phone: [facility] 08-05-2022 08:54-0500 Body weight 75.3 kg Donald Gross DO Work Phone: [facility] 08-05-2022 08:54-0500 Diastolic blood pressure 62 mm[Hg] Donald Gross DO Work Phone: [facility] 08-05-2022 08:54-0500 Heart rate 60 /min Donald Gross DO Work Phone: [facility] 08-05-2022 08:54-0500 SaO2% (BldA) [Mass fraction] 94 % Donald Gross DO Work Phone: [facility] 08-05-2022 08:54-0500 Systolic blood pressure 124 mm[Hg] Donald Gross DO Work Phone: [facility] 07-26-2022 08:43-0500 Body height 172.7 cm Julieta Ramirez BENEFITS MANAGER.BURN TABLE OPERATOR Work Phone: [facility] 07-26-2022 08:43-0500 Body weight 77.56 kg Julieta Ramirez BENEFITS MANAGER.BURN TABLE OPERATOR Work Phone: [facility] 07-26-2022 08:43-0500 Diastolic blood pressure 84 mm[Hg] Julieta Ramirez BENEFITS MANAGER.BURN TABLE OPERATOR Work Phone: [facility] 07-26-2022 08:43-0500 Heart rate 53 /min Julieta Ramirez BENEFITS MANAGER.BURN TABLE OPERATOR Work Phone: [facility] 07-26-2022 08:43-0500 SaO2% (BldA) [Mass fraction] 98 % Julieta Ramirez BENEFITS MANAGER.BURN TABLE OPERATOR Work Phone: [facility] 07-26-2022 08:43-0500 Systolic blood pressure 170 mm[Hg] Julieta Ramirez BENEFITS MANAGER.BURN TABLE OPERATOR Work Phone: [facility] 04-21-2022 13:37-0400 Body height 175.26 cm NIKKI MILLER RN [facility], [facility].; [email or web address] [facility]. 04-21-2022 13:37-0400 Body mass index (BMI) [Ratio] 25.1 kg/m2 NIKKI MILLER RN [facility].; [facility]. 04-21-2022 13:37-0400 Body surface area Derived from formula 1.93 m2 NIKKI MILLER RN [facility].; [facility]. 04-21-2022 13:37-0400 Body weight 77.11 kg NIKKI MILLER RN [facility].; [facility]. 04-21-2022 13:37-0400 Diastolic blood pressure 79 mm[Hg] NIKKI MILLER RN [facility].; [facility] [employer] [facility]. Comment on above: Patient Position: Sitting; Cuff Location : Left Arm; Cuff Size: Standard 04-21-2022 13:37-0400 Heart rate 65 /min NIKKI MILLER RN [facility].; [email or web address] [facility] [employer] [facility], Inc. Comment on above: Pattern: Regular 04-21-2022 13:37-0400 Systolic blood pressure 127 mm[Hg] NIKKI MILLER RN [facility] [employer] [facility].; [facility] [employer] [facility]. Comment on above: Patient Position: Sitting; Cuff Location : Left Arm; Cuff Size: Standard 02-02-2022 08:59-0400 Body height 175.26 cm [facility], [employer] [email or web address] [facility] [employer] [facility], [employer]. 02-02-2022 08:59-0400 Body mass index (BMI) [Ratio] 24.22 kg/m2 [facility], [facility].; [email or web address] [facility] [employer] [facility], [employer]. 02-02-2022 08:59-0400 Body surface area Derived from formula 1.9 m2 [facility] [employer] [facility], [facility].; [facility] [employer] [facility]. 02-02-2022 08:59-0400 Body weight 74.39 kg [facility] [employer] [facility].; [email or web address] SAVOONGA Mesuro [facility] [employer] [facility], [employer]. 02-02-2022 08:59-0400 Diastolic blood pressure 97 mm[Hg] [facility] [employer] [facility].; [employer] [facility] [employer] [facility], [employer]. Comment on above: Patient Position: Sitting; Cuff Location : Left Arm; Cuff Size: Standard 02-02-2022 08:59-0400 Heart rate 67 /min [facility] [employer] [facility].; [facility] [employer] [facility]. Comment on above: Pattern: Regular 02-02-2022 08:59-0400 Systolic blood pressure 145 mm[Hg] [facility], [employer].; [email or web address] [facility], [employer]. Comment on above: Patient Position: Sitting; Cuff Location : Left Arm; Cuff Size: Standard 01-19-2022 10:03-0400 Body height 175.26 cm LOLY GRATE ALEXANDRA [facility], [facility].; [facility], Inc[facility] 01-19-2022 10:03-0400 Body mass index (BMI) [Ratio] 24.22 kg/m2 LOLY GRATE ALEXANDRA [facility], [facility].; [facility], [facility]. 01-19-2022 10:03-0400 Body surface area Derived from formula 1.9 m2 LOLY BOOTH RN [facility], [facility].; [facility], [facility]. 01-19-2022 10:03-0400 Body weight 74.39 kg LOLY GRATE ALEXANDRA [facility], [facility].; [facility], Inc[facility] 01-19-2022 10:03-0400 Diastolic blood pressure 99 mm[Hg] LOLY GRATE ALEXANDRA [facility], [facility].; [facility], [employer]. Comment on above: Patient Position: Sitting; Cuff Location : Right Arm; Cuff Size: Standard 01-19-2022 10:03-0400 Heart rate 60 /min LOLY GRATE ALEXANDRA [facility], [facility].; [facility] [employer] [facility]. Comment on above: Pattern: Regular 01-19-2022 10:03-0400 Systolic blood pressure 179 mm[Hg] LOLY GRATE ALEXANDRA [facility], [facility].; [facility] [employer] [facility]. Comment on above: Patient Position: Sitting; Cuff Location : Right Arm; Cuff Size: Standard 12-09-2021 10:03-0400 Body height 175.26 cm [facility], Inc.; [facility], Inc[facility] 12-09-2021 10:03-0400 Body mass index (BMI) [Ratio] 24.37 kg/m2 [facility], Inc.; [facility], Inc[facility] 12-09-2021 10:03-0400 Body surface area Derived from formula 1.9 m2 RAFFAELE [facility] later [facility], Inc.; [facility], Inc[facility] 12-09-2021 10:030400 Body weight 74.84 kg RAFFAELE [facility], [facility].; [facility], [facility]. 12-09-2021 10:030400 Diastolic blood pressure 74 mm[Hg] [facility], Inc.; [facility], Inc[facility] Comment on above: Patient Position: Sitting; Cuff Location : Left Arm; Cuff Size: Standard 12-09-2021 10:03-0400 Heart rate 56 /min [facility], [facility].; [facility], Inc[facility] Comment on above: Pattern: Regular 12-09-2021 10:03-0400 Systolic blood pressure 135 mm[Hg] [facility], [facility].; [facility], Inc[facility] Comment on above: Patient Position: Sitting; Cuff Location : Left Arm; Cuff Size: Standard 11-14-2020 12:59-0400 Body height 175.26 cm Parul Garcia [facility], [facility].; [facility], [facility]. 11-14-2020 12:59-0400 Body mass index (BMI) [Ratio] 23.48 kg/m2 Parul Garcia [facility], Inc.; [facility], Inc[facility] 11-14-2020 12:59-0400 Body surface area Derived from formula 1.87 m2 Parul Garcia [facility], [facility].; [facility], Inc[facility] 11-14-2020 12:59-0400 Body weight 72.12 kg Parul Garcia [facility], [facility].; [facility]. 11-14-2020 12:59-0400 Diastolic blood pressure 64 mm[Hg] Parul Garcia [facility].; [facility] [employer] [facility]. Comment on above: Patient Position: Sitting; Cuff Location : Left Arm; Cuff Size: Standard 11-14-2020 12:59-0400 Heart rate 73 /min Parul Garcia [facility].; [facility] [employer] [facility]. Comment on above: Pattern: Regular 11-14-2020 12:59-0400 Inhaled oxygen concentration 21 % Parul Garcia [facility].; [facility] [employer] [facility]. Comment on above: Room air 11-14-2020 12:59-0400 SaO2% (BldA) [Mass fraction] 97 % Parul Garcia [facility].; [email or web address] SAVOONGA Mesuro [facility] [employer] [facility]. 11-14-2020 12:59-0400 Systolic blood pressure 99 mm[Hg] Parul Garcia [facility].; [facility]ENTERSHANE [facility] [employer] [facility]. Comment on above: Patient Position: Sitting; Cuff Location : Left Arm; Cuff Size: Standard 02-20-2020 10:57-0400 Body height 175.26 cm [employer] Work Phone: [facility].; [email or web address] [facility] [employer] [facility]. 02-20-2020 10:57-0400 Body mass index (BMI) [Ratio] 23.18 kg/m2 [employer] Work Phone: [facility] [employer] [facility].; [facility] [employer] [facility]. 02-20-2020 10:57-0400 Body surface area Derived from formula 1.86 m2 [employer] Work Phone: [facility] [employer] [facility].; [facility] CENTERBigvestWillis-[facility] [employer] [facility]. 02-20-2020 10:57-0400 Body temperature 98.7 [degF] REGIS LEETETTER OIL TREATER-C Work Phone: [facility].; [employer] [facility]. Comment on above: Method: Oral 02-20-2020 10:57-0400 Body weight 71.22 kg REGIS LEETETTER OIL TREATER-C Work Phone: [facility].; [employer] [facility]. 02-20-2020 10:57-0400 Diastolic blood pressure 86 mm[Hg] REGIS LEETETTER OIL TREATER-C Work Phone: [facility].; [email or web address] SAVOONGA Mesuro [facility]. Comment on above: Patient Position: Sitting; Cuff Location : Left Arm; Cuff Size: Standard 02-20-2020 10:57-0400 Heart rate 71 /min REGIS LEETETTER OIL TREATER-C Work Phone: [facility] [employer] [facility].; [employer] [facility] [employer] [facility]. Comment on above: Pattern: Regular 02-20-2020 10:57-0400 Systolic blood pressure 147 mm[Hg] REGIS LEETETTER OIL TREATER-C Work Phone: [facility].; [employer] [facility] [employer] [facility]. Comment on above: Patient Position: Sitting; Cuff Location : Left Arm; Cuff Size: Standard 12-12-2019 12:44-0400 Body height 175.26 cm Parul Garcia [facility].; [employer] [facility] [employer] [facility] HospitalC[facility]. 12-12-2019 12:44-0400 Body mass index (BMI) [Ratio] 24.66 kg/m2 Parul Garcia [facility].; [email or web address] [facility] [employer] [facility] HospitalC[facility]. 12-12-2019 12:44-0400 Body surface area Derived from formula 1.91 m2 Parul Garcia [facility].; [email or web address] [facility] [employer] [facility]. 12-12-2019 12:44-0400 Body weight 75.75 kg Parul Garcia [facility], [facility].; [facility], Inc[facility] 12-12-2019 12:44-0400 Diastolic blood pressure 76 mm[Hg] Parul Renteria [facility], Inc.; [facility], Inc[facility] Comment on above: Patient Position: Sitting; Cuff Location : Left Arm; Cuff Size: Standard 12-12-2019 12:44-0400 Heart rate 56 /min Parul Garcia [facility], Inc.; [facility], Inc[facility] Comment on above: Pattern: Regular 12-12-2019 12:44-0400 Systolic blood pressure 122 mm[Hg] Parul Renteria [facility], Inc.; [facility], Inc[facility] Comment on above: Patient Position: Sitting; Cuff Location : Left Arm; Cuff Size: Standard 12-03-2019 09:31-0400 Body height 175.26 cm REGIS LEEBrandBoardsP-C Work Phone: [facility].; [facility], Inc[facility] 12-03-2019 09:31-0400 Body mass index (BMI) [Ratio] 24.66 kg/m2 REGIS LEEIssuuER OIL TREATER-C Work Phone: [facility].; [facility] CenterC[facility] Inc. 12-03-2019 09:31-0400 Body surface area Derived from formula 1.91 m2 REGIS LEEBrandBoardsP-C Work Phone: [facility].; [facility] CenterC[facility] Inc. 12-03-2019 09:31-0400 Body weight 75.75 kg REGIS CARUSOTarenaP-C Work Phone: [facility] HospitalC[facility].; [facility], Inc[facility] 12-03-2019 09:31-0400 Diastolic blood pressure 76 mm[Hg] REGIS CARUSOLovethelookER OIL TREATER-C Work Phone: [facility].; [facility]. Comment on above: Patient Position: Sitting; Cuff Location : Left Arm; Cuff Size: Standard 12-03-2019 09:31-0400 Heart rate 51 /min REGIS SOER OIL TREATER-C Work Phone: [facility].; [facility] CenterE[facility]. Comment on above: Pattern: Regular 12-03-2019 09:31-0400 Systolic blood pressure 117 mm[Hg] REGIS LEETETTER OIL TREATER-C Work Phone: [facility].; [facility]. Comment on above: Patient Position: Sitting; Cuff Location : Left Arm; Cuff Size: Standard 10-10-2019 10:14040 Body height 175.26 cm LOLY GRATE ALEXANDRA [facility], [facility].; [facility], Inc[facility] 10-10-2019 10:140400 Body mass index (BMI) [Ratio] 24.51 kg/m2 LOLY GRATE ALEXANDRA [facility], [facility].; [facility], [facility]. 10-10-2019 10:14040 Body surface area Derived from formula 1.91 m2 LOLY GRATE ALEXANDRA [facility], [facility].; [facility], [facility]. 10-10-2019 10:14040 Body weight 75.3 kg LOLY GRATE ALEXANDRA [facility], [facility].; [facility], [employer]. 10-10-2019 10:140400 Diastolic blood pressure 65 mm[Hg] LOLY GRATE ALEXANDRA [facility], [facility].; [facility] [employer] [facility], [employer]. Comment on above: Patient Position: Sitting; Cuff Location : Left Arm; Cuff Size: Standard 10-10-2019 10:140400 Heart rate 52 /min LOLY GRATE ALEXANDRA [facility], [facility].; [email or web address] [facility] [employer] [facility]. Comment on above: Pattern: Regular 10-10-2019 10:14-0400 Systolic blood pressure 103 mm[Hg] LOLY BOOTH RN [facility].; [facility]. Comment on above: Patient Position: Sitting; Cuff Location : Left Arm; Cuff Size: Standard 07-18-2019 13:34-0500 Body height 175.26 cm REGIS DNA SEQTTER OIL TREATER-C Work Phone: [facility] HospitalSKC Communications; [facility] 07-18-2019 13:34-0500 Body mass index (BMI) [Ratio] 24.66 kg/m2 REGIS DNA SEQTTER OIL TREATER-C Work Phone: [facility] HospitalSKC Communications; [facility] 07-18-2019 13:34-0500 Body surface area Derived from formula 1.91 m2 REGIS DNA SEQTTER OIL TREATER-C Work Phone: [facility] HospitalSKC Communications; [facility] CenterE[facility]. 07-18-2019 13:34-0500 Body weight 75.75 kg REGIS DNA SEQTTER OIL TREATER-C Work Phone: [facility] HospitalSKC Communications; [facility] CenterE[facility]. 07-18-2019 13:34-0500 Diastolic blood pressure 68 mm[Hg] REGIS [employer] Latin AmericaTETTER OIL TREATER-C Work Phone: [facility] HospitalSKC Communications; [employer] [facility] Center[facility]. Comment on above: Patient Position: Sitting; Cuff Location : Left Arm; Cuff Size: Standard 07-18-2019 13:34-0500 Heart rate 66 /min REGIS [employer] Latin AmericaTETTER OIL TREATER-C Work Phone: [facility] HospitalSKC Communications; [employer] [facility] [employer] [facility] HospitalSKC Communications Comment on above: Pattern: Regular 07-18-2019 13:34-0500 Systolic blood pressure 110 mm[Hg] REGIS HOFSTETTER OIL TREATER-C Work Phone: [facility] [employer] [facility]Earmark.; [employer] [facility] [employer] [facility]. Comment on above: Patient Position: Sitting; Cuff Location : Left Arm; Cuff Size: Standard 08-09-2018 08:46-0500 Body height 175.26 cm [facility], Inc.; [employer] [facility] [employer] [facility], Inc[employer] 08-09-2018 08:46-0500 Body mass index (BMI) [Ratio] 23.48 kg/m2 [facility] Inc.; [facility] [employer] [facility], Inc[facility] 08-09-2018 08:46-0500 Body surface area Derived from formula 1.87 m2 [facility].; [email or web address] SAVOONGA Mesuro [facility] [employer] [facility], Inc[facility] 08-09-2018 08:46-0500 Body temperature 98.3 [degF] [facility] [employer] [facility] HospitalCen[facility]x Inc.; [employer] [facility] [employer] [facility], Inc. Comment on above: Method: Oral 08-09-2018 08:46-0500 Body weight 72.12 kg [facility].; [facility] CENTERBigvestWillis-[facility] [employer] [facility], Inc[facility] 08-09-2018 08:46-0500 Diastolic blood pressure 76 mm[Hg] [facility] [employer] [facility] HospitalC[facility]x Inc.; [employer] [facility] [employer] [facility] HospitalC[facility]x Inc. Comment on above: Patient Position: Sitting; Cuff Location : Left Arm; Cuff Size: Standard 08-09-2018 08:46-0500 Heart rate 71 /min [facility] [employer] [facility].; [employer] EntertainmentWill[facility] [employer] Comment on above: Pattern: Regular 08-09-2018 08:46-0500 Systolic blood pressure 107 mm[Hg] [facility] [employer] [facility] HospitalC[facility]x Inc.; [employer] [facility] [employer] [facility], Inc[facility] Comment on above: Patient Position: Sitting; Cuff Location : Left Arm; Cuff Size: Standard 06-04-2015 10:22-0500 Body height 175.26 cm REGIS MATHEWS Work Phone: [facility] [employer] [facility].; [facility]. 06-04-2015 10:22-0500 Body mass index (BMI) [Ratio] 25.4 kg/m2 REGIS CARDONA OIL TREATER-C Work Phone: [facility].; [facility] CenterE[facility]. 06-04-2015 10:22-0500 Body surface area Derived from formula 1.94 m2 REGIS CARDONA OIL TREATER-C Work Phone: [facility].; [facility] CenterE[facility]. 06-04-2015 10:22-0500 Body weight 78.02 kg REGIS SOER OIL TREATER-C Work Phone: [facility] [employer] [facility].; [facility] CenterE[facility]. 06-04-2015 10:22-0500 Diastolic blood pressure 95 mm[Hg] REGIS SOER OIL TREATER-C Work Phone: [facility] [employer] [facility].; [facility] CenterE[facility]. Comment on above: Patient Position: Sitting; Cuff Location : Left Arm; Cuff Size: Standard 06-04-2015 10:22-0500 Heart rate 78 /min REGIS SOER OIL TREATER-C Work Phone: [facility] [employer] [facility] HospitalSKC Communications; [facility] [employer] [facility] HospitalE[facility]. Comment on above: Pattern: Regular 06-04-2015 10:22-0500 Systolic blood pressure 153 mm[Hg] REGIS SOER OIL TREATER-C Work Phone: [facility] [employer] [facility].; [facility] [employer] [facility]. Comment on above: Patient Position: Sitting; Cuff Location : Left Arm; Cuff Size: Standard 01-15-2015 13:24-0400 Body height 175.26 cm LOLY BOOTH RN [facility] [employer] [facility].; [facility], Inc[facility] 01-15-2015 13:24-0400 Body mass index (BMI) [Ratio] 24.81 kg/m2 LOLY GRATE ALEXANDRA [facility], Inc.; [facility], Inc[facility] 01-15-2015 13:24-0400 Body surface area Derived from formula 1.92 m2 LOLY GRATE RN [facility], Inc.; [facility], Inc[facility] 01-15-2015 13:24-0400 Body weight 76.2 kg LOLY GRATE RN [facility] HospitalC[facility].; [facility], Inc[facility] 01-15-2015 13:24-0400 Diastolic blood pressure 73 mm[Hg] LOLY GRATE ALEXANDRA [facility] HospitalC[facility]x [facility].; [facility], Inc[facility] Comment on above: Patient Position: Sitting; Cuff Location : Left Arm; Cuff Size: Standard 01-15-2015 13:24-0400 Heart rate 73 /min LOLY BOOTH RN [facility].; [facility], Inc[facility] Comment on above: Pattern: Regular 01-15-2015 13:24-0400 Systolic blood pressure 139 mm[Hg] LOLY GRATE ALEXANDRA [facility] HospitalC[facility]x [facility].; [facility], Inc[facility] Comment on above: Patient Position: Sitting; Cuff Location : Left Arm; Cuff Size: Standard 03-08-2014 13:59-0400 Body height 175.26 cm REGIS CARUSOTarenaP-C Work Phone: [facility] [employer] [facility].; [facility], Inc[facility] 03-08-2014 13:59-0400 Body mass index (BMI) [Ratio] 24.22 kg/m2 REGIS StrobeP-C Work Phone: [facility] [employer] [facility].; [facility], Inc[facility] 03-08-2014 13:59-0400 Body surface area Derived from formula 1.9 m2 REGIS StrobeP-C Work Phone: [facility] [employer] [facility].; [facility] [employer] [facility], Inc[facility] 03-08-2014 13:59-0400 Body weight 74.39 kg REGIS HOFSTETTER OIL TREATER-C Work Phone: [facility] HarrisburgFlowgear [facility]ark.; [employer] [facility] [employer] [facility]. 03-08-2014 13:59-0400 Diastolic blood pressure 98 mm[Hg] REGIS LEETETTER OIL TREATER-C Work Phone: [facility] [employer] [facility].; [employer] [facility] [employer] [facility]ark. Comment on above: Patient Position: Sitting; Cuff Location : Left Arm; Cuff Size: Standard 03-08-2014 13:59-0400 Heart rate 80 /min REGIS LEETETTER OIL TREATER-C Work Phone: [facility] [employer] [facility]ark.; [employer] [facility] [employer] [facility]. Comment on above: Pattern: Regular 03-08-2014 13:59-0400 Systolic blood pressure 150 mm[Hg] REGIS LEETETTER OIL TREATER-C Work Phone: [facility].; [employer] [facility] [employer] [facility]. Comment on above: Patient Position: Sitting; Cuff Location : Left Arm; Cuff Size: Standard 07-27-2013 13:32-0500 Body height 175.26 cm REGIS LEETETTER OIL TREATER-C Work Phone: [facility].; [employer] [facility] [employer] [facility]. 07-27-2013 13:32-0500 Body mass index (BMI) [Ratio] 24.81 kg/m2 REGIS LEETETTER OIL TREATER-C Work Phone: [facility].; [employer] [facility] [employer]. 07-27-2013 13:32-0500 Body surface area Derived from formula 1.92 m2 REGIS LEETETTER OIL TREATER-C Work Phone: [facility].; [employer] [facility] [employer] [facility]. 07-27-2013 13:32-0500 Body weight 76.2 kg REGIS LEETETTER OIL TREATER-C Work Phone: [facility] [employer] [facility] [employer]. 07-27-2013 13:32-0500 Diastolic blood pressure 80 mm[Hg] REGIS LEETETTER OIL TREATER-C Work Phone: [facility].; [employer] [facility] [employer] [facility]. Comment on above: Patient Position: Sitting; Cuff Location : Left Arm; Cuff Size: Standard 07-27-2013 13:32-0500 Heart rate 78 /min REGIS COPPOLATTER OIL TREATER-C Work Phone: [facility].; [employer] [facility] [employer] [facility]. Comment on above: Pattern: Regular 07-27-2013 13:32-0500 Systolic blood pressure 118 mm[Hg] REGIS LEETETTER OIL TREATER-C Work Phone: [facility].; [employer] [facility] [employer] [facility]. Comment on above: Patient Position: Sitting; Cuff Location : Left Arm; Cuff Size: Standard 03-27-2012 14:13-0400 Body height 175.26 cm REGIS LEETETTER OIL TREATER-C Work Phone: [facility].; [facility] [employer] [facility]. 03-27-2012 14:13-0400 Body mass index (BMI) [Ratio] 24.51 kg/m2 REGIS LEETETTER OIL TREATER-C Work Phone: [facility].; [facility] [employer] [facility]. 03-27-2012 14:13-0400 Body surface area Derived from formula 1.91 m2 REGIS LEETETTER OIL TREATER-C Work Phone: [facility].; [place] [employer] [facility] [employer] [facility]. 03-27-2012 14:13-0400 Body weight 75.3 kg REGIS LEETETTER OIL TREATER-C Work Phone: [facility].; [place] [facility] [employer] [facility]. 03-27-2012 14:13-0400 Diastolic blood pressure 72 mm[Hg] REGIS CARUSOFSTETTER OIL TREATER-C Work Phone: [employer] [facility]. Comment on above: Patient Position: Sitting; Cuff Location : Right Arm; Cuff Size: Standard 03-27-2012 14:13-0400 Heart rate 96 /min REGIS COPPOLATTER OIL TREATER-C Work Phone: [facility] [employer]. Comment on above: Pattern: Regular 03-27-2012 14:13-0400 Systolic blood pressure 114 mm[Hg] REGIS CARUSOFSTETTER OIL TREATER-C Work Phone: [employer] [facility] [employer]. Comment on above: Patient Position: Sitting; Cuff Location : Right Arm; Cuff Size: Standard 06-13-2010 10:32-0500 Body height 175.26 cm REGIS CARUSOShoutlyTETTER OIL TREATER-C Work Phone: [facility] [employer] [facility] [employer]. 06-13-2010 10:32-0500 Body mass index (BMI) [Ratio] 25.1 kg/m2 REGIS ICE EntertainmentELIZABETHTETTER OIL TREATER-C Work Phone: [employer] [facility].; [employer] [facility] [employer]. 06-13-2010 10:32-0500 Body surface area Derived from formula 1.93 m2 REGIS ICE EntertainmentELIZABETHTETTER OIL TREATER-C Work Phone: [facility]burg[facility].; [employer] [facility] [employer]. 06-13-2010 10:32-0500 Body temperature 98.3 [degF] REGIS LEETETTER OIL TREATER-C Work Phone: [employer] [facility] [employer]. Comment on above: Method: Oral 06-13-2010 10:32-0500 Body weight 77.11 kg REGIS CARUSOFSTETTER OIL TREATER-C Work Phone: [facility]; [employer] [facility] [employer] 06-13-2010 10:32-0500 Diastolic blood pressure 81 mm[Hg] REGIS CARDONA OIL TREATER-C Work Phone: [email or web address]; [employer]. Comment on above: Patient Position: Sitting; Cuff Location : Left Arm; Cuff Size: Large 06-13-2010 10:32-0500 Heart rate 79 /min REGIS CARDONA OIL TREATER-C Work Phone: [email or web address]; [employer]. Comment on above: Pattern: Regular 06-13-2010 10:32-0500 Systolic blood pressure 122 mm[Hg] REGIS CARUSOZoned Nutrition OIL TREATER-C Work Phone: [email or web address]; [employer]. Comment on above: Patient Position: Sitting; Cuff Location : Left Arm; Cuff Size: Large Encounters Encounter Date Encounter Type Care Provider Facility Start: 05-20-2025 ambulatory [facility] Facilit y:[facility] Start: 05-17-2025 ambulatory Thiago Goodori Facility:[facility] Start: 04-26-2025 End: 04-26-2025 ambulatory [facility] Start: 04-26-2025 End: 04-26-2025 ambulatory [facility] Facility:[facility] Start: 03-15-2025 End: 03-17-2025 Telephone encounter Donald Sykes DO Work Phone: [facility] Start: 03-15-2025 End: 03-15-2025 ambulatory DONALD SYKES [facility] Start: 03-07-2025 End: 03-07-2025 Telephone encounter Donald Sykes DO Work Phone: [facility] Comment on above: Appointment Start: 02-28-2025 End: 02-28-2025 Patient encounter procedure Donald Sykes DO Work Phone: [facility] Comment on above: Benign essential HTN (Primary Dx); Hyperlipidemia LDL goal <70; Hx of cardiac catheterization; Hx of cardiovascular stress test; Stented coronary artery; History of echocardiogram; Non-smoker; SOB (shortness of breath) Start: 02-28-2025 End: 02-28-2025 ambulatory DONALD SYKES Facility:[id number] Start: 09-21-2024 End: 09-21-2024 Office outpatient visit 15 minutes REGIS JESUSCARIDADEDUARDO OIL TREATER-C [facility] Start: 09-21-2024 Review REGIS CARUSOMARI EDUARDO OIL TREATER-C [facility] Start: 03-12-2024 End: 03-12-2024 Refill Donald Sykes DO Work Phone: [facility] Comment on above: Refill Request Start: 02-29-2024 End: 02-29-2024 Patient encounter procedure Donald Sykes DO Work Phone: [facility] Comment on above: Benign essential HTN (Primary Dx); Hyperlipidemia LDL goal <70; Stented coronary artery; Hx of cardiovascular stress test; History of echocardiogram; History of left heart catheterization (LHC); Non-smoker Start: 10-31-2023 Refill Loly Renteria RN [facility] Comment on above: Refill Request Start: 02-28-2023 End: 02-28-2023 ambulatory DONALD SYKES Facility:[facility] Start: 02-28-2023 End: 02-28-2023 Patient encounter procedure Donald Sykes DO Work Phone: [facility] Comment on above: Benign essential HTN (Primary Dx); Hyperlipidemia LDL goal <70; Stented coronary artery; Hx of cardiac catheterization; Hx of cardiovascular stress test; History of echocardiogram; Non-smoker Start: 10-26-2022 End: 10-27-2022 ambulatory JUANCHO PETERS APRN-BURN TABLE OPERATOR Facility:A Start: 10-26-2022 End: 10-26-2022 Patient encounter procedure JUANCHO PETERS APRN-BURN TABLE OPERATOR [facility] Start: 08-26-2022 Refill Julieta Ramirez APRN.BURN TABLE OPERATOR Work Phone: [facility] Comment on above: Refill Request Start: 08-25-2022 End: 08-25-2022 ambulatory RENETTA GUTIÉRREZ Facility:A Start: 08-25-2022 End: 08-25-2022 SAME DAY STAY JOSE SHANE MD [facility] Start: 08-23-2022 End: 08-28-2022 ambulatory PATIENT UNSURE PHYSICIAN Facility:A Start: 08-05-2022 End: 08-05-2022 ambulatory DONALD SYKES Facility:[facility] Start: 08-05-2022 End: 08-05-2022 Patient encounter procedure Donald Sykes DO Work Phone: [facility] Comment on above: Benign essential HTN (Primary Dx); Stented coronary artery; Hyperlipidemia LDL goal <70; Hx of cardiac catheterization; Hx of cardiovascular stress test; Non-smoker; SOB (shortness of breath) Start: 08-03-2022 End: 08-03-2022 Historical Summary REGIS GURROLA-C Work Phone: [facility] Start: 08-02-2022 ambulatory JULIETA RAMIREZ Facil ty:[facility] Start: 08-02-2022 End: 08-02-2022 Subsequent hospital visit by physician Provider [facility] Start: 07-26-2022 Telephone encounter Julieta lindsey APRN.BURN TABLE OPERATOR Work Phone: [facility] Comment on above: PA for NM Cardiac Pe rf Stress/Pharm Start: 07-26-2022 End: 07-26-2022 ambulatory JULIETA RAMIREZ Facility:[facility] Start: 07-26-2022 End: 07-26-2022 Patient encounter procedure Julieta Ramirez APRN.BURN TABLE OPERATOR Work Phone: [facility] Comment on above: SOB (shortness of br eath) (Primary Dx); Benign essential HTN; Hx of cardiac catheterization; Hx of cardiovascular stress test; Stented coronary artery; Never smoked cigarettes Start: 04-21-2022 End: 04-21-2022 Office outpatient visit 10 minutes REGIS CARUSOFSTETTER OIL TREATER-C Work Phone: [employer] Start: 02-02-2022 End: 02-02-2022 Office outpatient visit 10 minutes REGIS HOFSTETTER OIL TREATER-C Work Phone: [employer] Start: 01-22-2022 End: 01-22-2022 Results Review REGIS HOFSTETTER OIL TREATER-C Work Phone: [employer] Start: 01-19-2022 End: 01-24-2022 ambulatory PATIENT UNSURE PHYSICIAN Facility:A Start: 01-19-2022 End: 01-19-2022 Office outpatient visit 25 minutes REGIS HOFSTETTER OIL TREATER-C Work Phone: [employer] Start: 12-09-2021 End: 12-09-2021 Office outpatient visit 10 minutes REGIS ICE EntertainmentFSTETTER OIL TREATER-C Work Phone: [employer] Start: 11-14-2020 End: 11-14-2020 Office outpatient visit 15 minutes REGIS ICE EntertainmentFSTETTER OIL TREATER-C Work Phone: [employer] Start: 03-26-2020 End: 03-26-2020 Medication Refill/Order REGIS HOFSTETTER OIL TREATER-C Work Phone: [employer] Start: 02-20-2020 End: 02-20-2020 Office outpatient visit 10 minutes REGIS HOFSTETTER OIL TREATER-C Work Phone: [employer] Start: 12-26-2019 End: 12-26-2019 Medication Refill/Order REGIS HOFSTETTER OIL TREATER-C Work Phone: [employer] [place] [employer] [facility] Start: 12-18-2019 End: 12-19-2019 Lab Only REGIS CARDONA OIL TREATER-C Work Phone: [facility] [employer] [facility] [employer] [facility] Start: 12-18-2019 End: 12-19-2019 Patient encounter status REGIS CARDONA OIL TREATER-C Work Phone: [employer] [facility]; [employer] [facility] Start: 12-12-2019 End: 12-12-2019 Office outpatient visit 10 minutes REGIS SOER OIL TREATER-C Work Phone: [facility] [employer] [facility] [employer] [facility] Start: 12-03-2019 End: 12-03-2019 Injection/immunization only REGIS CARDONA OIL TREATER-C Work Phone: [facility] [employer] [facility] [employer] [facility] Start: 12-03-2019 End: 12-03-2019 Injection/immunization only REGIS SOER OIL TREATER-C Work Phone: [employer] [place] [employer] [facility] Start: 12-03-2019 End: 12-03-2019 Office outpatient visit 15 minutes REGIS SOER OIL TREATER-C Work Phone: [facility] [employer] [facility] [employer] [facility] Start: 10-10-2019 End: 10-10-2019 Office outpatient visit 10 minutes REGIS SOER OIL TREATER-C Work Phone: [employer] [place] [employer] [facility] Start: 07-18-2019 End: 07-18-2019 Office outpatient visit 10 minutes REGIS SOER OIL TREATER-C Work Phone: [employer] [place] [employer] [facility] [employer] Start: 08-09-2018 End: 08-09-2018 Office outpatient visit 10 minutes REGIS COPPOLATTER OIL TREATER-C Work Phone: [facility] Start: 06-04-2015 End: 06-04-2015 Office outpatient visit 10 minutes REGIS CARDONA OIL TREATER-C Work Phone: [facility] Start: 01-15-2015 End: 01-15-2015 Office outpatient visit 15 minutes REGIS CARDONA OIL TREATER-C Work Phone: [facility] Start: 03-08-2014 End: 03-08-2014 Patient encounter procedure REGIS CARDONA OIL TREATER-C Work Phone: [facility] Start: 07-27-2013 End: 07-27-2013 Patient encounter procedure REGIS CARDONA OIL TREATER-C Work Phone: [facility] Start: 03-27-2012 End: 03-27-2012 Patient encounter procedure REGIS CARDONA OIL TREATER-C Work Phone: [facility] Start: 06-23-2010 End: 06-23-2010 Historical Summary REGIS CARDONA OIL TREATER-C Work Phone: [facility] Start: 06-13-2010 End: 06-13-2010 Patient encounter procedure REGIS CARDONA OIL TREATER-C Work Phone: [facility] Procedures Date Procedure Procedure Detail Performing Clinician Start: 02-28-2025 Ecg routine ecg w/le ast 12 lds i&r only Donald Sykes DO Work Phone: Start: 09-21-2024 End: 09-21-2024 Dischrg meds reconciled w/current med list R MINERVA DAS MD Work Phone: Start: 02-29-2024 Ecg routine ecg w/le ast 12 lds i&r only Donald Sykes DO Work Phone: Start: 08-02-2022 End: 08-02-2022 Cardiovascular Stress Test - Nuclear Grace RENTERIA MD Work Phone: Start: 08-02-2022 NM LISETTE SPECT MULTI (FONDA) Julieta Ramirez BENEFITS MANAGER.BURN TABLE OPERATOR Work Phone: Start: 08-02-2022 NUCLEAR STRESS TEST (WT<440#) (FONDA) Julieta Ramirez BENEFITS MANAGER.BURN TABLE OPERATOR Work Phone: Start: 04-21-2022 End: 04-21-2022 Dischrg meds reconciled w/current med list Grace RENTERIA MD Work Phone: Start: 02-02-2022 End: 02-02-2022 Dischrg meds reconciled w/current med list Grace RENTERIA MD Work Phone: Start: 02-02-2022 End: 02-02-2022 Removal sutures under anesthesia same surgeon Grace RENTERIA MD Work Phone: Start: 01-19-2022 End: 01-19-2022 Excision malignant lesion s/n/h/f/g 1.1-2.0 cm Grace RENTERIA MD Work Phone: Start: 12-09-2021 End: 12-09-2021 Dischrg meds reconciled w/current med list Grace RENTERIA MD Work Phone: Start: 12-09-2021 End: 12-09-2021 Arthrocentesis aspir&/inj major jt/bursa w/o us Grace RENTERIA MD Work Phone: Start: 11-14-2020 End: 11-14-2020 Urinary Incontinence RAFFAELE JARAMILLO Comment on above: Negative. Start: 03-26-2020 End: 03-26-2020 Collj & interpj physiol data min 30 min ea 30 d LOLY BOOTH RN Start: 12-03-2019 End: 12-03-2019 Adacel RAFFAELE JARAMILLO Comment on above: Had immunization. Start: 12-03-2019 End: 12-03-2019 Simple repair scalp/neck/ax/genit/trunk 2.5cm/< Grace RENTERIA MD Work Phone: Start: 10-10-2019 End: 10-10-2019 Collj & interpj physiol data min 30 min ea 30 d Grace RENTERIA MD Work Phone: Start: 07-18-2019 End: 07-18-2019 Dischrg meds reconciled w/current med list Grace RENTERIA MD Work Phone: Start: 08-09-2018 End: 08-09-2018 Dischrg meds reconciled w/current med list Grace RENTERIA MD Work Phone: Start: 07-04-2016 Percutaneous coronar y intervention JOSE SHANE MD Start: 06-04-2015 End: 06-04-2015 Arthrocentesis aspir&/inj major jt/bursa w/o us J MARIO RENTERIA MD Work Phone: Start: 03-08-2014 End: 03-08-2014 Ketorolac tromethamine inj RAFFAELE Mckeon MD Work Phone: Start: 03-08-2014 End: 03-08-2014 Therapeutic prophylactic/dx injection subq/im RAFFAELE SELBY MD Work Phone: Start: 07-27-2013 End: 07-27-2013 Ketorolac tromethamine inj MINERVA SELBY MD Work Phone: Start: 07-27-2013 End: 07-27-2013 Therapeutic prophylactic/dx injection subq/im MINERVA SELBY MD Work Phone: Start: 06-13-2010 End: 06-13-2010 Removal impacted cerumen instrumentation gildaat ASHOK MIR MD Work Phone: herniorraphy RAFFAELE JARAMILLO Plan of Treatment Date Care Activity Detail Author Start: 12-02-2029 Urine microalbumin profile DTaP,Tdap,Td Vaccine (2 - Td or Tdap) [facility] Start: 2027 RSV Vaccine (1 - 1-d ose 75+ series) RSV Vaccine (1 - 1-dose 75+ series) [facility] Start: 02-28-2026 End: 02-28-2026 Patient encounter procedure 02/28/2026 9:20 AM EDT Office Visit [address] [place] [id number] Kobi Cintron APRN.[facility] [address] [place] [address] 1 yr HTN [facility] Comment on above: 1 yr HTN Start: 03-15-2025 End: 03-15-2025 Patient encounter procedure 03/15/2025 9:45 AM EDT Appointment [facility] [address] [place] [address] [id number] Dx: SOB (shortness of breath) [R06.02] [facility] Comment on above: Dx: SOB (shortness o f breath) [R06.02] Start: 03-15-2025 End: 03-15-2025 Patient encounter procedure 03/15/2025 8:15 AM EDT Appointment Radiology [address] [place] [id number] Dx: SOB (shortness of breath) [R06.02] Radiology Comment on above: Dx: SOB (shortness o f breath) [R06.02] Start: 03-04-2025 Influenza vaccination Influenza Vacc ine (#1) [facility] Start: 02-28-2025 End: 02-28-2025 Patient encounter procedure 02/28/2025 11:15 AM EDT Office Visit [address] [place] [phone] Donald Sykes DO [address] [place] [address] [address] [place] [address] 1 year f/u HTN [facility] Comment on above: 1 year f/u HTN Start: 07-04-2024 Advance Directive Discussion Advance Directive Discussion [facility] Start: 03-04-2024 Covid-19 Vaccine () Covid-19 Vaccine () [facility] Start: 03-04-2024 Influenza vaccination C [facility] Start: 02-29-2024 BP CONTROLLED (<130/80) BP CONTROLLE D (<130/80) [facility] Start: 02-29-2024 End: 02-29-2024 Patient encounter procedure 02/29/2024 11:00 AM EDT Office Visit [facility] [address] [place] [phone] Donald Sykes DO [address] [address] [place] [address] 1 year follow up [facility] Comment on above: 1 year follow up Start: 08-05-2023 BP CONTROLLED (<130/80) BP CONTROLLE D (<130/80) [facility] Start: 07-04-2023 Advance Directive Discussion Advance Directive Discussion [facility] Start: 07-04-2023 Behavioral Health Screening Behavioral Health Screening [facility] Start: 03-04-2023 Covid-19 Vaccine ( season) Covid-19 Vaccine ( season) [facility] Start: 03-04-2023 Influenza vaccination C [facility] Start: 07-04-2022 ADVANCE DIRECTIVE DISCUSSION ADVANCE DIRECTIVE DISCUSSION [facility] Start: 07-04-2022 DEPRESSION ASSESSMENT DEPRESSION ASS ESSMENT [facility] Start: 03-04-2022 Influenza vaccination INFLUENZA (#1) [facility] Start: 01-22-2022 Patient Education Basal Cell C arcinoma Indication: Skin cancer Start: 22-Jan-2022 Instruction Type: Patient Education cliniq.ly; [employer] Start: 12-12-2019 Mri spinal canal lum bar w/o contrast material MRI LUMBAR SPINE W/O CONTRAST ([id number]) Start: 12-Dec-2019 Intent cliniq.ly; [employer]. Start: 07-18-2019 Collj & interpj phys iol data min 30 min ea 30 d QUERY OARRS REPORT ([id number]) Start: 18-Jul-2019 Intent cliniq.ly; [employer]. Start: 2017 Pneumococcal Vaccine : 65+ (1 - PCV) Pneumococcal Vaccine: 65+ (1 - PCV) [facility] Start: 2017 Pneumococcal Vaccine : 65+ (1 of 1 - PCV) Pneumococcal Vaccine: 65+ (1 of 1 - PCV) [facility] Start: 2017 PNEUMOCOCCAL: 65+ (1 - PCV) PNEUMOCOCCAL: 65+ (1 - PCV) [facility] Start: 2012 RSV Vaccine (1 - 1-d ose 60+ series) RSV Vaccine (1 - 1-dose 60+ series) [facility] Start: 2002 Pneumococcal Vaccine : 50+ (1 of 1 - PCV) Pneumococcal Vaccine: 50+ (1 of 1 - PCV) [facility] Start: 2002 SHINGRIX VACCINE (1 of 2) SHINGRIX VACCINE (1 of 2) [facility] Start: 1997 COLOGUARD (FIT-DNA) COLOGUARD (FIT-D NA) [facility] Start: 1997 Colonoscopy COLONOSCOPY [facility] Start: 1997 COLORECTAL CANCER SCREENING COLORECTAL CANCER SCREENING [facility] Start: [address] COLONOGRAPHY [facility] Start: 1997 DIABETES SCREEN DIABETES SCREEN [facility] Start: 1997 Diabetes Screening Diabetes Screenin g [facility] Start: 1997 FECAL OCCULT BLOOD FECAL OCCULT BLOO D [facility] Start: 1997 Screening for malign ant neoplasm of colon [facility] Start: 1997 SIGMOIDOSCOPY SIGMOIDOSCOPY [facility] Start: 1987 Lipid 1996 panel - S leonel or Plasma Lipid Screening [facility] Start: 1987 Lipid panel Lipid Screening [facility] Start: 1987 LIPID SCREEN LIPID SCREEN [facility] Start: 1971 Urine microalbumin profile [facility] Start: 1970 ANNUAL PCP TEAM SANDBLASTER GLASS SCOTTY DISEASE VISIT ANNUAL PCP TEAM CHRONIC DISEASE VISIT [facility] Start: 1970 Anxiety Screening Anxiety Screening [facility] Start: 1970 BP CONTROLLED (<130/80) BP CONTROLLE D (<130/80) [facility] Start: 1970 Depression Screening Depression Scre ening [facility] Start: 1970 HEPATITIS C SCREENING HEPATITIS C [facility] Start: 1970 Hepatitis C screening Hepatitis C [facility] Start: 1952 COVID-19 VACCINE (#1) COVID-19 VACCI NE (#1) [facility] ECG COMPLETE ECG COMPLETE ECG Routine Benign essential HTN 02/28/2023 11:02 AM EDT [facility] Work Phone: ECG COMPLETE ECG COMPLETE ECG Routine Benign essential HTN 02/29/2024 11:22 AM EDT [facility] Work Phone: ECG COMPLETE ECG COMPLETE ECG Routine Benign essential HTN 02/28/2025 11:05 AM EDT [facility] End: 08-25-2023 NM CARDIAC PERF STRESS/PHARM NM CARDIAC PERF STRESS/PHARM Radiology Routine SOB (shortness of breath) 1 Occurrences starting 07/26/2022 until 08/25/2023 [facility] Work Phone: Comment on above: 1 Occurrences starti ng 07/26/2022 until 08/25/2023 End: 03-30-2026 NM Heart Perfusion W multiple states of exercise NM CARDIAC PERF STRESS/EXERCISE Radiology Routine SOB (shortness of breath) 1 Occurrences starting 02/28/2025 until 03/30/2026 [facility] Work Phone: Comment on above: 1 Occurrences starti ng 02/28/2025 until 03/30/2026 [facility] Immunizations Immunization Date Immunization Notes Care Provider Fa [facility] 12-03-2019 tetanus toxoid, redu reed diphtheria toxoid, and acellular pertussis vaccine, adsorbed JOSE SHANE MD [facility] Comment on above: Site: Left DeltoidVI S Given: * Tdap (Tetanus, Diphtheria, Pertussis) (10/03/2019) 12-03-2019 unknown vaccine or immune globulin [employer] Work Phone: [facility] 12-03-2019 *IMMUNIZATION ADMIN ([id number]) REGIS [employer] Work Phone: [facility]; [facility] influenza virus vaccine, unspecified formulation [employer]IS [employer] Work Phone: [facility]; [facility] Comment on above: Refused. 04/21/2022 Payers Date Payer Category Payer Unknown . 2022 Unknown [id number] 2022 Unknown SHINTO [id number] 2022 Private Health Insurance [id number] 2022 Unknown [id number] 2022 Self-pay [id number] 2022 Self-pay 1950 Unknown [id number] 2.16.8 [id number] 1952 Unknown [id number] 2.16.8 [id number] 1952 Unknown [id number] 2.16.8 [id number] 1952 Unknown [id number] 2.16.8 [id number] 1952 Unknown [id number] 2.16.8 [id number] 1952 Unknown [id number] 2.16.8 [id number] Unknown [id number] 2.16.8 [id number] Unknown 191 Unknown [id number] 2.16.8 [id number] Unknown [id number] 2.16.8 [id number] Unknown [id number] 2.16.8 [id number] Unknown [id number] 2.16.8 [id number] Social History Date Type Detail Facility Start: 03-03-2020 End: 08-05-2022 Tobacco smoking status NHIS Never smoked tobacco [facility] Start: 03-03-2020 End: 08-05-2022 Tobacco use and exposure Smokeless tobacco non-user [facility] Start: 07-26-2022 End: 03-15-2025 Alcohol intake Ex-drinker (finding) [facility] Start: 1950 Sex Assigned At Not on file [facility] Sex Assigned At Male [facility] Start: 02-28-2023 End: 02-28-2025 History of Social function [facility] Start: 02-28-2023 End: 02-28-2025 Tobacco use panel [facility] Start: 02-16-2018 National Score (1-100), lower number is lower risk Not on file [facility] Alcohol Use: Alcohol Use: ; N o Alcohol Use. [employer] [facility] Current Work/Study Status: Current Work/Study Status: ; Full-time. [facility] [employer] [facility] Tobacco use: Tobacco use: ; N ever smoker. [employer] [facility].; [email or web address] [employer] [facility] [employer] [facility] Work Phone: Goals Date Patient Goal Desired Activity /State Personal health goal Functional Status Date Assessment Result Facility 08-25-2022 Functional Status Resting [facility] 08-25-2022 Functional Status Maintained [facility] Mental Status Date Assessment Result Facility 08-25-2022 Mental Status Orientation Oriented x 4 [facility] 08-25-2022 [facility] 07-26-2022 to 03-17-2025 Telephone Encounter - Donald Sykes DO - 03/17/2025 5:49 AM EDTTelephone Encounter - Donald Sykes DO - 03/17/2025 5:49 AM EDTTelephone Encounter - Michael Sykes - 03/07/2025 9:00 AM EDT Note Date & Type Note Facility 03-17-2025 Telephone encounter Note Stress test suggest he has blockages again and may need another stent needs another heart catheterization please set up a heart catheterization [facility] 03-17-2025 Miscellaneous Notes Stress test suggest he has blockages again and may need another stent needs another heart catheterization please set up a heart catheterization There is a stress test in scanned documents for you to review. Thanks! Tati Morfin MA documented in this encounter [facility] 03-15-2025 Telephone encounter Note There is a stress test in scanned documents for you to review. Thanks! Tati Morfin MA [facility] 03-07-2025 Telephone encounter Note Patient called regarding stress test and asked due to him having the [employer] if he could have the order faxed to [facility] as they were giving him a cheaper rate. Order faxed to [phone] [facility] 03-07-2025 Miscellaneous Notes Patient called regarding stress test and asked due to him having the [employer] if he could have the order faxed to [facility] as they were giving him a cheaper rate. Order faxed to [phone] documented in this encounter [facility] 02-28-2025 Note HNO ID: [id number] Author: DONALD SYKES DO Service: ? Author Type: Physician Type: Progress Notes Filed: 03/01/2025 08:43 Note Text: Referring Provider: Donald Sykes DO Date: February 28, 2025 Chief Complaint: Established Patient (1 year follow-up HTN) Heart cath done on 08/25/2022 showed, EF is 45-50%. CX has 70% stenosis. Stress test done on 08/02/2022 showed, EF 42%. No stress-induced reversible perfusion abnormality is seen. Mildly decreased cardiac systolic function. Stent done on 02/15/2017, DON Synergy to LAD last heart catheterization demonstrated 70% circumflex Echo done on 10/26/2022 showed, EF is 45-50%. Grade II diastolic Dysfunction. Mild AR. Mild to Moderate MR. CRISTIAN is 2.9cm. Trivial TR and ME. Basal septal LVH is noted. HISTORY OF PRESENT ILLNESS: Gunnar Renteria is a 74 year old male who presents for Established Patient (1 year follow-up HTN). ALLERGIES No Known Allergies PAST MEDICAL HISTORY: PAST MEDICAL HISTORY Diagnosis Date Benign essential HTN GOINS (dyspnea on exertion) Fatigue History of cardiovascular stress test 08/02/2022 EF 42%. No stress-induced reversible perfusion abnormality is seen. Mildly decreased cardiac systolic function. History of echocardiogram 10/26/2022 EF is 45-50%. Grade II diastolic Dysfunction. Mild AR. Mild to Moderate MR. CRISTIAN is 2.9cm. Trivial TR and ME. Basal septal LVH is noted. History of left heart catheterization 08/25/2022 EF is 45-50%. CX has 70% stenosis. Hx of cardiac catheterization 02/02/2017 Severe disease noted in the proximal portion of the LAD and is a ring like lesion concentric stenosis Hx of cardiac catheterization 05/16/2000 EF 55% normal coronary arteries normal EF mildly elevated LVEDP normal aortic systolic BP Hx of cardiovascular stress test 03/01/2019 lexiscan protocol small inferior septal wall scar no ischemia apical wall dyskinesis. Dilated LV LBBB with multiple wide complexes that increased with exercise. Hyperlipidemia with target LDL less than 70 Intervertebral disk disease 01/2020 L3-L4 and lifts L1 L2 done in [place] Stented coronary artery 02/15/2017 DON Synergy to LAD PAST SURGICAL HISTORY Procedure Laterality Date BACK SURGERY HX 01/2020 History reviewed. No pertinent family history. SOCIAL HISTORY: Tobacco Use: Never Alcohol Use: Not Currently Drug Use: Never Employer And Job Title: None on file Years Of Education Completed: Not specified Marital Status: MEDICATIONS: Current Outpatient Medications Medication Sig lisinopril (ZESTRIL) 10 mg tablet take one tablet by mouth once daily atorvastatin (LIPITOR) 40 mg tablet TAKE 2 TABLETS BY MOUTH EVERY EVENING isosorbide mononitrate ER (IMDUR) 30 mg 24 hr tablet Take 1 tablet by mouth once daily. amiodarone (PACERONE) 200 mg tablet Take 1 tablet by mouth once daily. aspirin, enteric coated (ASPIRIN, ENTERIC COATED) 81 mg EC tablet Take 81 mg by mouth once daily. No current facility-administered medications for this visit. I have personally reviewed the patients past medical history including social, family, surgical, diagnostics, and medications. REVIEW OF SYSTEMS: Review of Systems Constitutional: Positive for fatigue. Negative for chills. Respiratory: Positive for chest tightness and shortness of breath. Cardiovascular: Negative for chest pain, palpitations and leg swelling. Neurological: Positive for dizziness. Negative for syncope, weakness and light-headedness. Hematological: Bruises/bleeds easily. Psychiatric/Behavioral: Negative for confusion and hallucinations. Vitals: BP 102/56 (BP Site: Left Arm, BP Position: Sitting) Pulse (!) 59 Ht 172.7 cm (5' 8") Wt 73.6 kg (162 lb 4.1 oz) BMI 24.67 kg/m? PHYSICAL EXAMINATION: BP 102/56 (BP Site: Left Arm, BP Position: Sitting) Pulse (!) 59 Ht 172.7 cm (5' 8") Wt 73.6 kg (162 lb 4.1 oz) BMI 24.67 kg/m? Last 3 Encounter BP Readings: Date: BP: 02/29/2024 126/80 02/28/2023 122/70 08/05/2022 124/62 Last 3 Encounter Pulse Readings: Date: Pulse: 02/29/2024 47 02/28/2023 50 08/05/2022 60 Last 3 Encounter Wt Readings: Date: Wt: 02/29/2024 74.4 kg (164 lb 0.4 oz) 02/28/2023 74.4 kg (164 lb 1.3 oz) 08/05/2022 75.3 kg (166 lb) Physical Exam Vitals reviewed. Constitutional: General: He is not in acute distress. Cardiovascular: Rate and Rhythm: Normal rate and regular rhythm. Pulses: Carotid pulses are 2+ on the right side and 2+ on the left side. Radial pulses are 2+ on the right side and 2+ on the left side. Femoral pulses are 2+ on the right side and 2+ on the left side. Popliteal pulses are 2+ on the right side and 2+ on the left side. Dorsalis pedis pulses are 2+ on the right side and 2+ on the left side. Posterior tibial pulses are 2+ on the right side and 2+ on the left side. Heart sounds: Murmur heard. Systolic murmur is present with a grade of 2/6. Comments: PMI not displaced. 2nd h (more content not included)... [facility] 02-28-2025 History of Presen t illness Narrative Images from the original note were not included. Referring Provider: Donald Sykes DO Date: February 28, 2025 Chief Complaint: Established Patient (1 year follow-up HTN) Heart cath done on 08/25/2022 showed, EF is 45-50%. CX has 70% stenosis. Stress test done on 08/02/2022 showed, EF 42%. No stress-induced reversible perfusion abnormality is seen. Mildly decreased cardiac systolic function. Stent done on 02/15/2017, DON Synergy to LAD last heart catheterization demonstrated 70% circumflex Echo done on 10/26/2022 showed, EF is 45-50%. Grade II diastolic Dysfunction. Mild AR. Mild to Moderate MR. CRISTIAN is 2.9cm. Trivial TR and ME. Basal septal LVH is noted. HISTORY OF PRESENT ILLNESS: Gunnar Renteria is a 74 year old male who presents for Established Patient (1 year follow-up HTN). ALLERGIES No Known Allergies PAST MEDICAL HISTORY: PAST MEDICAL HISTORY Diagnosis Date Benign essential HTN GOINS (dyspnea on exertion) Fatigue History of cardiovascular stress test 08/02/2022 EF 42%. No stress-induced reversible perfusion abnormality is seen. Mildly decreased cardiac systolic function. History of echocardiogram 10/26/2022 EF is 45-50%. Grade II diastolic Dysfunction. Mild AR. Mild to Moderate MR. CRISTIAN is 2.9cm. Trivial TR and ME. Basal septal LVH is noted. History of left heart catheterization 08/25/2022 EF is 45-50%. CX has 70% stenosis. Hx of cardiac catheterization 02/02/2017 Severe disease noted in the proximal portion of the LAD and is a ring like lesion concentric stenosis Hx of cardiac catheterization 05/16/2000 EF 55% normal coronary arteries normal EF mildly elevated LVEDP normal aortic systolic BP Hx of cardiovascular stress test 03/01/2019 lexiscan protocol small inferior septal wall scar no ischemia apical wall dyskinesis. Dilated LV LBBB with multiple wide complexes that increased with exercise. Hyperlipidemia with target LDL less than 70 Intervertebral disk disease 01/2020 L3-L4 and lifts L1 L2 done in [place] Stented coronary artery 02/15/2017 DON Synergy to LAD PAST SURGICAL HISTORY Procedure Laterality Date BACK SURGERY HX 01/2020 History reviewed. No pertinent family history. SOCIAL HISTORY: Tobacco Use: Never Alcohol Use: Not Currently Drug Use: Never Employer And Job Title: None on file Years Of Education Completed: Not specified Marital Status: MEDICATIONS: Current Outpatient Medications Medication Sig lisinopril (ZESTRIL) 10 mg tablet take one tablet by mouth once daily atorvastatin (LIPITOR) 40 mg tablet TAKE 2 TABLETS BY MOUTH EVERY EVENING isosorbide mononitrate ER (IMDUR) 30 mg 24 hr tablet Take 1 tablet by mouth once daily. amiodarone (PACERONE) 200 mg tablet Take 1 tablet by mouth once daily. aspirin, enteric coated (ASPIRIN, ENTERIC COATED) 81 mg EC tablet Take 81 mg by mouth once daily. No current facility-administered medications for this visit. I have personally reviewed the patients past medical history including social, family, surgical, diagnostics, and medications. REVIEW OF SYSTEMS: Review of Systems Constitutional: Positive for fatigue. Negative for chills. Respiratory: Positive for chest tightness and shortness of breath. Cardiovascular: Negative for chest pain, palpitations and leg swelling. Neurological: Positive for dizziness. Negative for syncope, weakness and light-headedness. Hematological: Bruises/bleeds easily. Psychiatric/Behavioral: Negative for confusion and hallucinations. Vitals: BP 102/56 (BP Site: Left Arm, BP Position: Sitting) Pulse (!) 59 Ht 172.7 cm (5' 8") Wt 73.6 kg (162 lb 4.1 oz) BMI 24.67 kg/m PHYSICAL EXAMINATION: BP 102/56 (BP Site: Left Arm, BP Position: Sitting) Pulse (!) 59 Ht 172.7 cm (5' 8") Wt 73.6 kg (162 lb 4.1 oz) BMI 24.67 kg/m Last 3 Encounter BP Readings: Date: BP: 02/29/2024 126/80 02/28/2023 122/70 08/05/2022 124/62 Last 3 Encounter Pulse Readings: Date: Pulse: 02/29/2024 47 02/28/2023 50 08/05/2022 60 Last 3 Encounter Wt Readings: Date: Wt: 02/29/2024 74.4 kg (164 lb 0.4 oz) 02/28/2023 74.4 kg (164 lb 1.3 oz) 08/05/2022 75.3 kg (166 lb) Physical Exam Vitals reviewed. Constitutional: General: He is not in acute distress. Cardiovascular: Rate and Rhythm: Normal rate and regular rhythm. Pulses: Carotid pulses are 2+ on the right side and 2+ on the left side. Radial pulses are 2+ on the right side and 2+ on the left side. Femoral pulses are 2+ on the right side and 2+ on the left side. Popliteal pulses are 2+ on the right side and 2+ on the left side. Dorsalis pedis pulses are 2+ on the right side and 2+ on the left side. Posterior tibial pulses are 2+ on the right side and 2+ on the left side. Heart sounds: Murmur heard. Systolic murmur is present with a grade of 2/6. Comments: PMI not displaced. 2nd heart sound loud. Pulmonary: Effort: Pulmonary effort is normal. Breath sounds: Normal breath sounds. Abdominal: General: Abdomen is flat. Bowel sounds are normal. Palpations: Abdomen is soft. Tenderness: There is no abdominal tenderness. Musculoskeletal: Right lower leg: No edema. Left lower leg: No edema. Skin: General: Skin is warm. Findings: No rash or wound. Neurological: Mental Status: He is alert and oriented to person, place, and time. Coordination: Coordination is intact. LABS: No results found for: "GLUC", "K", "NA", "CHLOR", "CO2", "CREAT", "BUN", "ANION", "CA", "TPROT", "ALB", "TBILI", "ALKPHOS", "AST", "ALT" No results found for: "HB", "HCT", "WBC" No results found for: "CHOL", "HDL", "LDL", "TG" EKG: ASSESSMENT/PLAN: 1. Benign essential HTN - ICD9: 401.1, ICD10: I10 (primary diagnosis) Patient's blood pressure in the office today was recorded as 102/56. Target systolic BP 140 or less and diastolic BP 90 or less. Continue current medications. Patient is currently taking Lisinopril 10mg daily - ECG COMPLETE abnormal EKG left bundle 2. Hyperlipidemia LDL goal <70 - ICD9: 272.4, ICD10: E78.5 Patient is currently taking Atorvastatin every day. Patient has not had any recent labs - ATORVASTATIN 40 MG TABLET 3. Hx of cardiac catheterization - ICD9: V45.89, ICD10: Z98.890 Heart cath done on 08/25/2022 showed, EF is 45-50%. CX has 70% stenosis. He is not having chest heaviness. Class II activity. Less than 2 flights of steps having chest discomfort. He has difficulty riding his bicycle over 200 feet he starts getting tightness in the chest I am concerned about the stenosis in the circumflex to be increasing. 4. Hx of cardiovascular stress test - ICD9: V15.89, ICD10: Z92.89 Stress test done on 08/02/2022 showed, EF 42%. No stress-induced reversible perfusion abnormality is seen. Mildly decreased cardiac systolic function. 5. Stented coronary artery - ICD9: V45.82, ICD10: Z95.5 Stent done on 02/15/2017, DON Synergy to LAD - 6. History of echocardiogram - ICD9: V15.89, ICD10: Z92.89 Echo done on 10/26/2022 showed, EF is 45-50%. Grade II diastolic Dysfunction. Mild AR. Mild to Moderate MR. CRISTIAN is 2.9cm. Trivial TR and ME. Basal septal LVH is noted. 7. Non-smoker - ICD9: V49.89, ICD10: Z78.9 Patient is a non-smoker 8. PAF. Maintaining sinus on amiodarone therapy Patient complains that he was running to his house, about 200 feet, and he had collapsed and he had some chest tightness. I, Augustina Perry MA , scribing for Dr. Donald Sykes, was present in the room during the examination Follow up in: 1 year with Julieta Prior to entering the room, I reviewed the last progress note including the diagnosis and plan of action. When available, I then reviewed the last heart catheterization, stress test, echocardiogram and EKG. I proceeded to review the medial therapy and any side effects the patient may have had in the past. I was able to look at the last several EKGs. A new EKG was performed today and an interetation was performed. I reviewed its interpretation with the family and compared it to the previous EKGs that we have in the medical records. Changes were described to the patient. In a pictorial format; I described the ME and QRS intervals. This was to show the effects of antiarrhythmic therapy on the electrical system. I was able to look at the past several EKG's. A new EKG was performed today and interpretation was noted. I reviewed this interpretation with the patient, and the family when available, and compared it to the previous EKG's that we have in the medical record. Since my office visit was carried out with a scribe, while in the exam room I was able to devote one hundred percent of my time in [id number] conversation with the patient. I answered all the questions and explained the diagnosis of which discomfort with riding his bike and walking up a hill I believe patient has need for stress test concerned about the 70% circumflex. Greater that 51% of my time was spent with [id number] conversation with the patient. I have discussed the recommended treatment, alternative therapies and other options in detail. I've discussed the best benefit and side effects of these recommended treatments. I've attempted to answer all the questions to the patient's satisfaction and understanding. With approval, we would recommend an pursue the current therapy such as set up a stress test. After leaving the exam room, I went back into the patient's chart and coordinated care with my nurse ordering the proper testing and medicinal changes. Letter was performed with voice recognition algorithms and sent to the referring team. The chart was completed. Including the pre-exam, exam and post-exam, the total time spent in the patient's management was greater than 15 minutes I, Dr. Donald Sykes, have reviewed and agree with the information in the medical record. Donald Sykes DO documented in this encounter [facility] 03-12-2024 Telephone encounter Note Prescription Refill Information The patient has been identified by name and date of : Yes Caregiver verified no other encounters exist for this prescription request: Yes Caregiver confirmed with patient/requestor that no other refills are due, in the near future, with this provider at this time: No The last office visit in the department: 02/29/24 Does the patient have a future office visit with this provider/department: Yes 02/28/25 Requested Prescriptions Pending Prescriptions Disp Refills lisinopril (ZESTRIL) 10 mg tablet [Pharmacy Med Name: lisinopril 10 mg tablet] 90 tablet 3 Sig: take one tablet by mouth once daily Julisa Abreu March 12, 2024 10:14 AM [facility] 03-12-2024 Miscellaneous Notes Prescription Refill Information The patient has been identified by name and date of : Yes Caregiver verified no other encounters exist for this prescription request: Yes Caregiver confirmed with patient/requestor that no other refills are due, in the near future, with this provider at this time: No The last office visit in the department: 02/29/24 Does the patient have a future office visit with this provider/department: Yes 02/28/25 Requested Prescriptions Pending Prescriptions Disp Refills lisinopril (ZESTRIL) 10 mg tablet [Pharmacy Med Name: lisinopril 10 mg tablet] 90 tablet 3 Sig: take one tablet by mouth once daily Julisa Abreu March 12, 2024 10:14 AM documented in this encounter [facility] 02-29-2024 History of Presen t illness Narrative Images from the original note were not included. Referring Provider: Self Date: February 29, 2024 Chief Complaint: Established Patient Follow-Up (HTN) HISTORY OF PRESENT ILLNESS: Gunnar Renteria is a 73 year old male who presents for Established Patient Follow-Up (HTN). ALLERGIES No Known Allergies PAST MEDICAL HISTORY: PAST MEDICAL HISTORY No date: Benign essential HTN No date: GOINS (dyspnea on exertion) No date: Fatigue 08/02/2022: History of cardiovascular stress test Comment: EF 42%. No stress-induced reversible perfusion abnormality is seen. Mildly decreased cardiac systolic function. 10/26/2022: History of echocardiogram Comment: EF is 45-50%. Grade II diastolic Dysfunction. Mild AR. Mild to Moderate MR. CRISTIAN is 2.9cm. Trivial TR and ME. Basal septal LVH is noted. 08/25/2022: History of left heart catheterization Comment: EF is 45-50%. CX has 70% stenosis. 02/02/2017: Hx of cardiac catheterization Comment: Severe disease noted in the proximal portion of the LAD and is a ring like lesion concentric stenosis 05/16/2000: Hx of cardiac catheterization Comment: EF 55% normal coronary arteries normal EF mildly elevated LVEDP normal aortic systolic BP 03/01/2019: Hx of cardiovascular stress test Comment: lexiscan protocol small inferior septal wall scar no ischemia apical wall dyskinesis. Dilated LV LBBB with multiple wide complexes that increased with exercise. No date: Hyperlipidemia with target LDL less than 70 01/2020: Intervertebral disk disease Comment: L3-L4 and lifts L1 L2 done in [place] 02/15/2017: Stented coronary artery Comment: DON Synergy to LAD PAST SURGICAL HISTORY 01/2020: BACK SURGERY HX No family history on file. SOCIAL HISTORY: Tobacco Use: Never Alcohol Use: Not Currently Drug Use: Never Employer And Job Title: None on file Years Of Education Completed: Not specified Marital Status: MEDICATIONS: Current Outpatient Medications Medication Sig isosorbide mononitrate ER (IMDUR) 30 mg 24 hr tablet Take 1 tablet by mouth once daily. amiodarone (PACERONE) 200 mg tablet Take 1 tablet by mouth once daily. lisinopril (ZESTRIL) 10 mg tablet Take 1 tablet by mouth once daily. atorvastatin (LIPITOR) 40 mg tablet TAKE 2 TABLETS BY MOUTH EVERY EVENING aspirin, enteric coated (ASPIRIN, ENTERIC COATED) 81 mg EC tablet Take 81 mg by mouth once daily. No current facility-administered medications for this visit. I have personally reviewed the patients past medical history including social, family, surgical, diagnostics, and medications. REVIEW OF SYSTEMS: Review of Systems Constitutional: Negative for chills and fatigue. Respiratory: Negative for chest tightness and shortness of breath. Cardiovascular: Negative for chest pain, palpitations and leg swelling. Neurological: Negative for dizziness, syncope, weakness and light-headedness. Hematological: Does not bruise/bleed easily. Psychiatric/Behavioral: Negative for confusion and hallucinations. Vitals: BP 126/80 (BP Site: Left Arm, BP Position: Sitting) Pulse (!) 47 Ht 172.7 cm (5' 8") Wt 74.4 kg (164 lb 0.4 oz) BMI 24.94 kg/m PHYSICAL EXAMINATION: BP 126/80 (BP Site: Left Arm, BP Position: Sitting) Pulse (!) 47 Ht 172.7 cm (5' 8") Wt 74.4 kg (164 lb 0.4 oz) BMI 24.94 kg/m Last 3 Encounter BP Readings: Date: BP: 02/28/2023 122/70 08/05/2022 124/62 07/26/2022 170/84 Last 3 Encounter Pulse Readings: Date: Pulse: 02/28/2023 50 08/05/2022 60 07/26/2022 53 Last 3 Encounter Wt Readings: Date: Wt: 02/28/2023 74.4 kg (164 lb 1.3 oz) 08/05/2022 75.3 kg (166 lb) 07/26/2022 77.6 kg (171 lb) Physical Exam Vitals reviewed. Constitutional: General: He is not in acute distress. Cardiovascular: Rate and Rhythm: Normal rate and regular rhythm. Pulses: Carotid pulses are 2+ on the right side and 2+ on the left side. Radial pulses are 2+ on the right side and 2+ on the left side. Femoral pulses are 2+ on the right side and 2+ on the left side. Popliteal pulses are 2+ on the right side and 2+ on the left side. Dorsalis pedis pulses are 2+ on the right side and 2+ on the left side. Posterior tibial pulses are 2+ on the right side and 2+ on the left side. Heart sounds: Murmur heard. Systolic murmur is present with a grade of 2/6. Comments: PMI not displaced. 2nd heart sound loud. Pulmonary: Effort: Pulmonary effort is normal. Breath sounds: Normal breath sounds. Abdominal: General: Abdomen is flat. Bowel sounds are normal. Palpations: Abdomen is soft. Tenderness: There is no abdominal tenderness. Musculoskeletal: Right lower leg: No edema. Left lower leg: No edema. Skin: General: Skin is warm. Findings: No rash or wound. Neurological: Mental Status: He is alert and oriented to person, place, and time. Coordination: Coordination is intact. LABS: No results found for: "GLUC", "K", "NA", "CHLOR", "CO2", "CREAT", "BUN", "ANION", "CA", "TPROT", "ALB", "TBILI", "ALKPHOS", "AST", "ALT" No results found for: "HB", "HCT", "WBC" No results found for: "CHOL", "HDL", "LDL", "TG" EKG: ASSESSMENT/PLAN: 1. Benign essential HTN - ICD9: 401.1, ICD10: I10 (primary diagnosis) Patient's blood pressure in the office today was recorded as 126/80. Target systolic BP 140 or less and diastolic BP 90 or less. Continue current medications. - ECG COMPLETE sinus rhythm with IVCD 2. Hyperlipidemia LDL goal <70 - ICD9: 272.4, ICD10: E78.5 Patient is currently taking Atorvastatin every day. Patient has not had recent labs. Likely repeat lipid profile in the near future 3. Stented coronary artery - ICD9: V45.82, ICD10: Z95.5 DON Synergy to LAD 02/15/2017 reviewed the last heart catheterization. Revealed that there was intervention completed. The patient is now able to have class I activity. Denies any chest pain heaviness pressure tightness.. Able to meet daily needs. 4. Hx of cardiovascular stress test - ICD9: V15.89, ICD10: Z92.89 Stress test done on 08/02/2022 showed EF 42%. No stress-induced reversible perfusion abnormality is seen. Mildly decreased cardiac systolic function. 5. History of echocardiogram - ICD9: V15.89, ICD10: Z92.89 Echo done on 10/26/2022 showed EF is 45-50%. Grade II diastolic Dysfunction. Mild AR. Mild to Moderate MR. CRISTIAN is 2.9cm. Trivial TR and ME. Basal septal LVH is noted. 6. History of left heart catheterization (LHC) - ICD9: V15.1, ICD10: Z98.890 Left heart cath done on 08/25/2022 showed EF is 45-50%. CX has 70% stenosis. 7. Non-smoker - ICD9: V49.89, ICD10: Z78.9 Patient is a non-smoker Patient i wanting to stop amiodarone therapy. Will go ahead and complete his request. We explained that we are ok with him stopping the Amiodarone but if his skipped beats come back we can put him back on it. We are also ok with him going off of the Lisinopril as well. Note the patient's ejection fraction after stenting is 45%. He is trying to minimize his medicinal therapy. He would like to get off of the HANNA therapy. Discussed with him that HANNA therapy as well as beta-blockade therapy has been shown to help prevent cardiomyopathy. He states he has class I activity able make his daily needs. He would like to try without HANNA therapy I, Augustina Perry MA , scribing for Dr. Donald Sykes, was present in the room during the examination Follow up in: [address] Sykes. Prior to entering the room, I reviewed the last progress note including the diagnosis and plan of action. When available, I then reviewed the last heart catheterization, stress test, echocardiogram and EKG. I proceeded to review the medial therapy and any side effects the patient may have had in the past. I was able to look at the last several EKGs. A new EKG was performed today and an interetation was performed. I reviewed its interpretation with the family and compared it to the previous EKGs that we have in the medical records. Changes were described to the patient. In a pictorial format; I described the ME and QRS intervals. This was to show the effects of antiarrhythmic therapy on the electrical system. I was able to look at the past several EKG's. A new EKG was performed today and interpretation was noted. I reviewed this interpretation with the patient, and the family when available, and compared it to the previous EKG's that we have in the medical record. Since my office visit was carried out with a scribe, while in the exam room I was able to devote one hundred percent of my time in [id number] conversation with the patient. I answered all the questions and explained the diagnosis of CAD status post stent with PAF. Greater that 51% of my time was spent with [id number] conversation with the patient. I have discussed the recommended treatment, alternative therapies and other options in detail. I've discussed the best benefit and side effects of these recommended treatments. I've attempted to answer all the questions to the patient's satisfaction and understanding. With approval, we would recommend an pursue the current therapy such as at his request we will try to minimize medicinal therapy we will go ahead and stop amiodarone and lisinopril therapy. After leaving the exam room, I went back into the patient's chart and coordinated care with my nurse ordering the proper testing and medicinal changes. Letter was performed with voice recognition algorithms and sent to the referring team. The chart was completed. Including the pre-exam, exam and post-exam, the total time spent in the patient's management was greater than 15 minutes I, Dr. Donald Sykes, have reviewed and agree with the information in the medical record. Donald Sykes DO documented in this encounter [facility] 10-31-2023 Telephone encounter Note Patient calls requesting refill: Requested Prescriptions Pending Prescriptions Disp Refills isosorbide mononitrate ER (IMDUR) 30 mg 24 hr tablet 90 tablet 0 Sig: Take 1 tablet by mouth once daily. Date of last visit:02/28/23 Phone #: [phone] (home) The patients preferred pharmacy has been captured for this encounter? yes [facility] 10-31-2023 Miscellaneous Notes Patient calls requesting refill: Requested Prescriptions Pending Prescriptions Disp Refills isosorbide mononitrate ER (IMDUR) 30 mg 24 hr tablet 90 tablet 0 Sig: Take 1 tablet by mouth once daily. Date of last visit:02/28/23 Phone #: [phone] (home) The patients preferred pharmacy has been captured for this encounter? yes documented in this encounter [facility] 02-28-2023 Note HNO ID: [id number] Author: Donald Sykes DO Service: ? Author Type: Physician Type: Progress Notes Filed: 03/01/2023 5:45 AM Note Text: Referring Provider: No ref. provider found Date: February 28, 2023 Chief Complaint: Established Patient Follow-Up (6 month follow up, hx of Cath and . ) HISTORY OF PRESENT ILLNESS: Gunnar Renteria is a 72 year old male who presents for Established Patient Follow-Up (6 month follow up, hx of Cath and . ). Has a stent in the LAD. Just recently had a heart catheterization. The stent in LAD was wide open. Doing a heart catheterization with aortic valve area was found to be not stenotic ALLERGIES No Known Allergies PAST MEDICAL HISTORY: PAST MEDICAL HISTORY Diagnosis Date Benign essential HTN GOINS (dyspnea on exertion) Fatigue History of cardiovascular stress test 08/02/2022 EF 42%. No stress-induced reversible perfusion abnormality is seen. Mildly decreased cardiac systolic function. History of echocardiogram 10/26/2022 EF is 45-50%. Grade II diastolic Dysfunction. Mild AR. Mild to Moderate MR. CRISTIAN is 2.9cm. Trivial TR and ME. Basal septal LVH is noted. History of left heart catheterization 08/25/2022 EF is 45-50%. CX has 70% stenosis. Hx of cardiac catheterization 02/02/2017 Severe disease noted in the proximal portion of the LAD and is a ring like lesion concentric stenosis Hx of cardiac catheterization 05/16/2000 EF 55% normal coronary arteries normal EF mildly elevated LVEDP normal aortic systolic BP Hx of cardiovascular stress test 03/01/2019 lexiscan protocol small inferior septal wall scar no ischemia apical wall dyskinesis. Dilated LV LBBB with multiple wide complexes that increased with exercise. Hyperlipidemia with target LDL less than 70 Intervertebral disk disease 01/2020 L3-L4 and lifts L1 L2 done in [place] Stented coronary artery 02/15/2017 DON Synergy to LAD PAST SURGICAL HISTORY Procedure Laterality Date BACK SURGERY HX 01/2020 History reviewed. No pertinent family history. SOCIAL HISTORY: Tobacco Use: Never Alcohol Use: Not Currently Drug Use: Never Employer And Job Title: None on file Years Of Education Completed: Not specified Marital Status: MEDICATIONS: Current Outpatient Medications Medication Sig isosorbide mononitrate ER (IMDUR) 30 mg 24 hr tablet Take 30 mg by mouth once daily. atorvastatin (LIPITOR) 40 mg tablet TAKE 2 TABLETS BY MOUTH EVERY EVENING lisinopril (ZESTRIL, PRINIVIL) 10 mg tablet Take 1 tablet by mouth once daily. amiodarone (PACERONE) 200 mg tablet Take 1 tablet by mouth once daily. aspirin, enteric coated (ASPIRIN, ENTERIC COATED) 81 mg EC tablet Take 81 mg by mouth once daily. No current facility-administered medications for this visit. I have personally reviewed the patients past medical history including social, family, surgical, diagnostics, and medications. REVIEW OF SYSTEMS: Review of Systems Constitutional: Negative for chills and fatigue. Respiratory: Negative for chest tightness and shortness of breath. Cardiovascular: Negative for chest pain, palpitations and leg swelling. Neurological: Negative for dizziness, syncope, weakness and light-headedness. Hematological: Bruises/bleeds easily. Psychiatric/Behavioral: Negative for confusion and hallucinations. Vitals: BP 122/70 (BP Site: Left Arm, BP Position: Sitting, BP Cuff Size: Regular Adult) Pulse (!) 50 Ht 172.7 cm (5' 8") Wt 74.4 kg (164 lb 1.3 oz) BMI 24.95 kg/m? PHYSICAL EXAMINATION: BP 122/70 (BP Site: Left Arm, BP Position: Sitting, BP Cuff Size: Regular Adult) Pulse (!) 50 Ht 172.7 cm (5' 8") Wt 74.4 kg (164 lb 1.3 oz) BMI 24.95 kg/m? Last 3 Encounter BP Readings: Date: BP: 08/05/2022 124/62 07/26/2022 170/84 09/02/2021 136/80 Last 3 Encounter Pulse Readings: Date: Pulse: 08/05/2022 60 07/26/2022 53 09/02/2021 54 Last 3 Encounter Wt Readings: Date: Wt: 08/05/2022 75.3 kg (166 lb) 07/26/2022 77.6 kg (171 lb) 09/02/2021 73 kg (161 lb) Physical Exam Vitals reviewed. Constitutional: General: He is not in acute distress. Cardiovascular: Rate and Rhythm: Normal rate and regular rhythm. Pulses: Carotid pulses are 2+ on the right side and 2+ on the left side. Radial pulses are 2+ on the right side and 2+ on the left side. Femoral pulses are 2+ on the right side and 2+ on the left side. Popliteal pulses are 2+ on the right side and 2+ on the left side. Dorsalis pedis pulses are 2+ on the right side and 2+ on the left side. Posterior tibial pulses are 2+ on the right side and 2+ on the left side. Heart sounds: Murmur heard. Systolic murmur is present with a grade of 2/6. Comments: PMI not displaced. 2nd heart sound loud. Pulmonary: Effort: Pulmonary effort is normal. Breath sounds: Normal breath sounds. Abdominal: General: Abdomen is flat. Bowel sounds are normal. Palpations: Abdomen is soft. Tendernes (more content not included)... [facility] 02-28-2023 History of Presen t illness Narrative Images from the original note were not included. Referring Provider: No ref. provider found Date: February 28, 2023 Chief Complaint: Established Patient Follow-Up (6 month follow up, hx of Cath and . ) HISTORY OF PRESENT ILLNESS: Gunnar Renteria is a 72 year old male who presents for Established Patient Follow-Up (6 month follow up, hx of Cath and . ). Has a stent in the LAD. Just recently had a heart catheterization. The stent in LAD was wide open. Doing a heart catheterization with aortic valve area was found to be not stenotic ALLERGIES No Known Allergies PAST MEDICAL HISTORY: PAST MEDICAL HISTORY Diagnosis Date Benign essential HTN GOINS (dyspnea on exertion) Fatigue History of cardiovascular stress test 08/02/2022 EF 42%. No stress-induced reversible perfusion abnormality is seen. Mildly decreased cardiac systolic function. History of echocardiogram 10/26/2022 EF is 45-50%. Grade II diastolic Dysfunction. Mild AR. Mild to Moderate MR. CRISTIAN is 2.9cm. Trivial TR and ME. Basal septal LVH is noted. History of left heart catheterization 08/25/2022 EF is 45-50%. CX has 70% stenosis. Hx of cardiac catheterization 02/02/2017 Severe disease noted in the proximal portion of the LAD and is a ring like lesion concentric stenosis Hx of cardiac catheterization 05/16/2000 EF 55% normal coronary arteries normal EF mildly elevated LVEDP normal aortic systolic BP Hx of cardiovascular stress test 03/01/2019 lexiscan protocol small inferior septal wall scar no ischemia apical wall dyskinesis. Dilated LV LBBB with multiple wide complexes that increased with exercise. Hyperlipidemia with target LDL less than 70 Intervertebral disk disease 01/2020 L3-L4 and lifts L1 L2 done in [place] Stented coronary artery 02/15/2017 DON Synergy to LAD PAST SURGICAL HISTORY Procedure Laterality Date BACK SURGERY HX 01/2020 History reviewed. No pertinent family history. SOCIAL HISTORY: Tobacco Use: Never Alcohol Use: Not Currently Drug Use: Never Employer And Job Title: None on file Years Of Education Completed: Not specified Marital Status: MEDICATIONS: Current Outpatient Medications Medication Sig isosorbide mononitrate ER (IMDUR) 30 mg 24 hr tablet Take 30 mg by mouth once daily. atorvastatin (LIPITOR) 40 mg tablet TAKE 2 TABLETS BY MOUTH EVERY EVENING lisinopril (ZESTRIL, PRINIVIL) 10 mg tablet Take 1 tablet by mouth once daily. amiodarone (PACERONE) 200 mg tablet Take 1 tablet by mouth once daily. aspirin, enteric coated (ASPIRIN, ENTERIC COATED) 81 mg EC tablet Take 81 mg by mouth once daily. No current facility-administered medications for this visit. I have personally reviewed the patients past medical history including social, family, surgical, diagnostics, and medications. REVIEW OF SYSTEMS: Review of Systems Constitutional: Negative for chills and fatigue. Respiratory: Negative for chest tightness and shortness of breath. Cardiovascular: Negative for chest pain, palpitations and leg swelling. Neurological: Negative for dizziness, syncope, weakness and light-headedness. Hematological: Bruises/bleeds easily. Psychiatric/Behavioral: Negative for confusion and hallucinations. Vitals: BP 122/70 (BP Site: Left Arm, BP Position: Sitting, BP Cuff Size: Regular Adult) Pulse (!) 50 Ht 172.7 cm (5' 8") Wt 74.4 kg (164 lb 1.3 oz) BMI 24.95 kg/m PHYSICAL EXAMINATION: BP 122/70 (BP Site: Left Arm, BP Position: Sitting, BP Cuff Size: Regular Adult) Pulse (!) 50 Ht 172.7 cm (5' 8") Wt 74.4 kg (164 lb 1.3 oz) BMI 24.95 kg/m Last 3 Encounter BP Readings: Date: BP: 08/05/2022 124/62 07/26/2022 170/84 09/02/2021 136/80 Last 3 Encounter Pulse Readings: Date: Pulse: 08/05/2022 60 07/26/2022 53 09/02/2021 54 Last 3 Encounter Wt Readings: Date: Wt: 08/05/2022 75.3 kg (166 lb) 07/26/2022 77.6 kg (171 lb) 09/02/2021 73 kg (161 lb) Physical Exam Vitals reviewed. Constitutional: General: He is not in acute distress. Cardiovascular: Rate and Rhythm: Normal rate and regular rhythm. Pulses: Carotid pulses are 2+ on the right side and 2+ on the left side. Radial pulses are 2+ on the right side and 2+ on the left side. Femoral pulses are 2+ on the right side and 2+ on the left side. Popliteal pulses are 2+ on the right side and 2+ on the left side. Dorsalis pedis pulses are 2+ on the right side and 2+ on the left side. Posterior tibial pulses are 2+ on the right side and 2+ on the left side. Heart sounds: Murmur heard. Systolic murmur is present with a grade of 2/6. Comments: PMI not displaced. 2nd heart sound loud. Pulmonary: Effort: Pulmonary effort is normal. Breath sounds: Normal breath sounds. Abdominal: General: Abdomen is flat. Bowel sounds are normal. Palpations: Abdomen is soft. Tenderness: There is no abdominal tenderness. Musculoskeletal: Right lower leg: No edema. Left lower leg: No edema. Skin: General: Skin is warm. Findings: No rash or wound. Neurological: Mental Status: He is alert and oriented to person, place, and time. Coordination: Coordination is intact. LABS: No results found for: "GLUC", "K", "NA", "CHLOR", "CO2", "CREAT", "BUN", "ANION", "CA", "TPROT", "ALB", "TBILI", "ALKPHOS", "AST", "ALT" No results found for: "HB", "HCT", "WBC" No results found for: "CHOL", "HDL", "LDL", "TG" EKG: DIAGNOSTIC TEST RESULTS: Recent Results (from the past 24 hour(s)) ECG COMPLETE Collection Time: 02/28/23 11:02 AM Result Value Ref Range Ventricular Rate 50 BPM Atrial Rate 50 BPM P-R Interval 194 ms QRS Duration 164 ms QT Interval 520 ms QTC Calculation (Bazett) 474 ms Calculated P [place] 55 degrees Calculated R [place] -6 degrees Calculated T [place] 56 degrees Narrative NAME : GUNNAR RENTERIA PID : [id number] : 1950 Gender : Male Race : ORD : [id number] Procedure Date : Feb 28 2023 11:02:20 Edit Date : Feb 28 2023 11:00:26 Diagnosis: SINUS BRADYCARDIA COMPLETE LEFT BUNDLE BRANCH BLOCK ABNORMAL ECG NO PREVIOUS ECGS AVAILABLE Test Reason : Location : [address] [place] [address] Overread By : , Edited By : , Referred By : DONALD SYKES Acquired by : [id number], Impression SINUS BRADYCARDIA COMPLETE LEFT BUNDLE BRANCH BLOCK ABNORMAL ECG NO PREVIOUS ECGS AVAILABLE I have provided a picture of today's EKG for your convenience and easy access. please note the interpretation on the EKG image is computer-generated and not the official interpretation. ASSESSMENT/PLAN: 1. Benign essential HTN - ICD9: 401.1, ICD10: I10 (primary diagnosis) Patient's blood pressure in the office today was recorded as 122/70. Target systolic BP 140 or less and diastolic BP 90 or less. Continue current medications. - ECG COMPLETE today's EKG demonstrates sinus rhythm. There is no QT prolongation. Abnormal EKG with left bundle branch block the EKG today was abnormal. I was able to look at the prior EKG and compared to today's EKG looking for changes. In the pictorial format we went over the EKG demonstrating the intervals and timing of the intervals. We also described the complexes shape and format. 2. Hyperlipidemia LDL goal <70 - ICD9: 272.4, ICD10: E78.5 Patient is currently taking Atorvastatin 40mg every day. - Counseled on healthy diet and regular exercise 3. Stented coronary artery - ICD9: V45.82, ICD10: Z95.5 Stent was done 02/15/2017 and showed DON Synergy to LAD recent heart catheterization demonstrated stent to be open 4. Hx of cardiac catheterization - ICD9: V45.89, ICD10: Z98.890 Cath was done 08/25/2022 and showed EF is 45-50%. CX has 70% stenosis. Allocated medicinal therapy 5. Hx of cardiovascular stress test - ICD9: V15.89, ICD10: Z92.89 Stress test was done 08/02/2022 and showed EF 42%. No stress-induced reversible perfusion abnormality is seen. Mildly decreased cardiac systolic function. 6. History of echocardiogram - ICD9: V15.89, ICD10: Z92.89 Echo was done 10/26/2022 and showed EF is 45-50%. Grade II diastolic Dysfunction. Mild AR. Mild to Moderate MR. CRISTIAN is 2.9cm. Trivial TR and ME. Basal septal LVH is noted. Second heart sounds loud aortic valve is not in jeopardy 7. Non-smoker - ICD9: V49.89, ICD10: Z78.9 Patient is a non-smoker. IFany MA , scribing for Dr. Donadl Sykes, was present in the room during the examination Follow up in: [address] Sykes Prior to entering the room, I reviewed the last progress note including the diagnosis and plan of action. When available, I then reviewed the last heart catheterization, stress test, echocardiogram and EKG. I proceeded to review the medial therapy and any side effects the patient may have had in the past. I was able to look at the last several EKGs. A new EKG was performed today and an interetation was performed. I reviewed its interpretation with the family and compared it to the previous EKGs that we have in the medical records. Changes were described to the patient. In a pictorial format; I described the ME and QRS intervals. This was to show the effects of antiarrhythmic therapy on the electrical system. I was able to look at the past several EKG's. A new EKG was performed today and interpretation was noted. I reviewed this interpretation with the patient, and the family when available, and compared it to the previous EKG's that we have in the medical record. Since my office visit was carried out with a scribe, while in the exam room I was able to devote one hundred percent of my time in [id number] conversation with the patient. I answered all the questions and explained the diagnosis of stable angina. Greater that 51% of my time was spent with [id number] conversation with the patient. I have discussed the recommended treatment, alternative therapies and other options in detail. I've discussed the best benefit and side effects of these recommended treatments. I've attempted to answer all the questions to the patient's satisfaction and understanding. With approval, we would recommend an pursue the current therapy such as had a recent heart catheterization stable on current medical therapy. After leaving the exam room, I went back into the patient's chart and coordinated care with my nurse ordering the proper testing and medicinal changes. Letter was performed with voice recognition algorithms and sent to the referring team. The chart was completed. Including the pre-exam, exam and post-exam, the total time spent in the patient's management was greater than 15 minutes I, Dr. Donald Sykes, have reviewed and agree with the information in the medical record. Donald Sykes DO documented in this encounter [facility] 08-26-2022 Miscellaneous Notes Patient calls requesting refill: Requested Prescriptions Pending Prescriptions Disp Refills atorvastatin (LIPITOR) 40 mg tablet 180 tablet 3 Sig: TAKE 2 TABLETS BY MOUTH EVERY EVENING lisinopril (ZESTRIL, PRINIVIL) 10 mg tablet 90 tablet 3 Sig: Take 1 tablet by mouth once daily. amiodarone (PACERONE) 200 mg tablet 90 tablet 3 Sig: Take 1 tablet by mouth once daily. Date of last visit:08/05/2022 Phone #: [phone] (home) The patients preferred pharmacy has been captured for this encounter? yes documented in this encounter [facility] 08-25-2022 Discharge summary Discharge Diagnosis CAD with ostial circumflex disease Aortic stenosis not severe History hypertension Hospital Course Patient is a pleasant 72-year-old gentleman who has a prior history of LAD stent was admitted for elective right heart cath. His echocardiogram report is not available was concerning for aortic stenosis. His stent in LAD was patent on the left heart cath however he does have a ostial circumflex disease that need a revascularization at some point. However his pullback gradient was not very significant for aortic stenosis. At this point I will have a discussion with the family with shared decision making we will repeat an echocardiogram. His filling pressures were normal with a normal PA sat normal cardiac output index. Patient will monitor the same day later discharged today Allergies No Known Medication Allergies Consults No qualifying data available. Objective Vitals and Measurements T: 36.4 C (Oral) HR: 52 RR: 16 BP: 151/78 SpO2: 100% HT: 172.7 cm WT: 74.9 kg BMI: 25.11 BMI: 25.11 Weight Dosing Weight: 74.9 kg (08/25/22) Patient oriented time place and person Lungs are clear S1-S2 regular rhythm Abdomen is soft No pedal edema Normal speech Code Status No qualifying data available. Admission Date August 25 Discharge Date August 25 Medications Unchanged amiodarone (Pacerone 200 mg oral tablet)1 tab(s) by mouth once a day. aspirin (aspirin 81 mg oral delayed release tablet)1 tab(s) by mouth once a day. atorvastatin (Lipitor 40 mg oral tablet)2 tab(s) by mouth once a day. lisinopril (lisinopril 10 mg oral tablet)1 tab(s) by mouth once a day. Follow Up Follow Up with JOSE SHANE MD When 09/30/2022 03:00 PM EDT Why: THIS APPOINTMENT WILL BE WITH JUANCHO PETERS CNP Where: [address] [facility] [place] [address]- [phone] Follow Up Appointments No qualifying data available. Follow Up Labs/Studies Discharge Labs No Follow-up Labs Discharge Studies No Follow-up Studies Discharge Diet Discharge Diet - Ordered -- Follow the post-operative/post-procedure diet instructions provided by your physician's office., 08/25/22 13:12:00 EST Discharge Activity Discharge Activity - Ordered -- Lifting Restricted less than 5 pounds, 08/25/22 13:12:00 EST Readmission Risk/Palliative Score No qualifying data available. Discharge Disposition Home Digitally Signed by WINNIE ROTHMAN MD on 08/25/2022 01:14 PM [facility] 08-25-2022 Hospital Discharg e instructions Patient Education 08/25/2022 15:14:12 3- Heart Cath/PCI groin (04/2018)(CUSTOM) HEART CATHETERIZATION/PCI (groin) Discharge Instructions DIET INSTRUCTIONS Drink plenty of fluids for the next 48 hours to help your kidneys flush the heart cath dye out of your system ACTIVITIES May go up and down stairs CAREFULLY Do not drive car FOR 24 HOURS No heavy lifting GREATER THAN 5 POUNDS or pushing or straining FOR 2 DAYS Someone must stay with you at home after the procedure until the morning. BATHING/SHOWERING May tub bathe in 1 week May shower tomorrow WOUND CARE You will go home with a dressing over your heart cath site. Keep a dressing on for the next 24 hours and then leave open to air. Some degree of bruising and tenderness is normal around the heart cath site. It will take a while for any bruising to completely resolve. Keep your site clean and dry. You need to report the following to your spud grader: Any draining or oozing from the site Any swelling at the site Any increased pain or tenderness at the site Any numbness in your leg where the procedure was done Any signs of infection IMPORTANT! CALL 911 FOR ANY BLEEDING OR SWELLING AT THE PROCEDURE SITE If there is any large amount of bleeding, you or someone else need to apply direct pressure to the site (just like the nurse did in the heart lab after your procedure). It is very important that you hold constant pressure. Do not release the pressure to check if the bleeding has stopped. You then need to be transported to the nearest emergency room. WATCH FOR SIGNS OF INFECTION (Usually appears 36-48 hours after surgery) A temperature above 100.5 Redness or swelling Increased pain Foul odor or drainage If you have any questions, please call your doctor at the number listed on your follow up instructions. Follow all instructions given to you by your physician Document Released: 06/20/2006 Document Revised: 06/06/2013 Document Reviewed: 06/21/2014 ExitCare Patient Information 2015 [employer]. This information is not intended to replace advice given to you by your health care provider. Make sure you discuss any questions you have with your health care provider. 08/25/2022 15:13:27 Moderate Conscious Sedation, Adult Moderate Conscious Sedation, Adult Sedation is the use of medicines to promote relaxation and relieve discomfort and anxiety. Moderate conscious sedation is a type of sedation. Under moderate conscious sedation, you are less alert than normal, but you are still able to respond to instructions, touch, or both. Moderate conscious sedation is used during short medical and dental procedures. It is milder than deep sedation, which is a type of sedation under which you cannot be easily woken up. It is also milder than general anesthesia, which is the use of medicines to make you unconscious. Moderate conscious sedation allows you to return to your regular activities sooner. Tell a health care provider about: Any allergies you have. All medicines you are taking, including vitamins, herbs, eye drops, creams, and kvuk-dss-fnzcdxq medicines. Use of steroids (by mouth or creams). Any problems you or family members have had with sedatives and anesthetic medicines. Any blood disorders you have. Any surgeries you have had. Any medical conditions you have, such as sleep apnea. Whether you are or may be . Any use of cigarettes, alcohol, marijuana, or street drugs. What are the risks? Generally, this is a safe procedure. However, problems may occur, including: Getting too much medicine (oversedation). Nausea. Allergic reaction to medicines. Trouble breathing. If this happens, a breathing tube may be used to help with breathing. It will be removed when you are awake and breathing on your own. Heart trouble. Lung trouble. What happens before the procedure? Staying hydrated Follow instructions from your health care provider about hydration, which may include: Up to 2 hours before the procedure you may continue to drink clear liquids, such as water, clear fruit juice, black coffee, and plain tea. Eating and drinking restrictions Follow instructions from your health care provider about eating and drinking, which may include: 8 hours before the procedure stop eating heavy meals or foods such as meat, fried foods, or fatty foods. 6 hours before the procedure stop eating light meals or foods, such as toast or cereal. 6 hours before the procedure stop drinking milk or drinks that contain milk. 2 hours before the procedure stop drinking clear liquids. Medicine Ask your health care provider about: Changing or stopping your regular medicines. This is especially important if you are taking diabetes medicines or blood thinners. Taking medicines such as aspirin and ibuprofen. These medicines can thin your blood. Do not take these medicines before your procedure if your health care provider instructs you not to. Tests and exams You will have a physical exam. You may have blood tests done to show: ?How well your kidneys and liver are working. ?How well your blood can clot. General instructions Plan to have someone take you home from the hospital or clinic. If you will be going home right after the procedure, plan to have someone with you for 24 hours. What happens during the procedure? An IV tube will be inserted into one of your veins. Medicine to help you relax (sedative) will be given through the IV tube. The medical or dental procedure will be performed. What happens after the procedure? Your blood pressure, heart rate, breathing rate, and blood oxygen level will be monitored often until the medicines you were given have worn off. Do not drive for 24 hours. This information is not intended to replace advice given to you by your health care provider. Make sure you discuss any questions you have with your health care provider. Document Released: 03/15/2002 Document Revised: 06/02/2018 Document Reviewed: 10/09/2016 [employer] Patient Education 2020 [employer]. Follow Up Care 08/17/2022 14:31:39 With:JOSE SHANE MD Address: [address] [facility] [place] [address]- [phone] When:09/30/2022 15:00:00 Comments:THIS APPOINTMENT WILL BE WITH JUANCHO PETERS CNP [facility] 08-25-2022 Summary of episod e note Discharge Instructions Thank you for allowing [facility] to assist you with your healthcare needs. The following is important discharge information regarding your hospital visit. Your Care Team PHYSICIAN, PATIENT UNSURE What to do next Scheduled Follow-Up Appointments Appointment Type When With Where [facility] Follow Up 09/30/2022 03:00 PM EDT JUANCHO PETERS [facility] Follow Up Appointments Follow Up with JOSE SHANE MD When 09/30/2022 03:00 PM EDT Why: THIS APPOINTMENT WILL BE WITH JUANCHO PETERS CNP Where: [address] [place] [address]- [phone] The Following Activity and Diet Have Been Ordered for You Discharge Activity - Ordered -- Lifting Restricted less than 5 pounds, 08/25/22 13:12:00 EST Discharge Diet - Ordered -- Follow the post-operative/post-procedure diet instructions provided by your physician's office., 08/25/22 13:12:00 EST Medications Please ask your primary doctor or pharmacist before taking any other medication not listed, including over the counter drugs, herbal medications, vitamins and or supplements as they may interact with your home medications. What How Much When Instructions Last Dose Unchanged amiodarone (Pacerone 200 mg oral tablet) 1 tab(s) by mouth Once a day Unchanged aspirin (aspirin 81 mg oral delayed release tablet) 1 tab(s) by mouth Once a day Unchanged atorvastatin (Lipitor 40 mg oral tablet) 2 tab(s) by mouth Once a day Unchanged lisinopril (lisinopril 10 mg oral tablet) 1 tab(s) by mouth Once a day Please take this list to your next doctor s visit. Bring all medications you take, including over the counter medications, herbals and other supplements with you to your doctor s visit. Patients and families are reminded to discard old lists and to update any records with all medication providers or retail pharmacies. Education Materials HEART CATHETERIZATION/PCI (groin) Discharge Instructions DIET INSTRUCTIONS Drink plenty of fluids for the next 48 hours to help your kidneys flush the heart cath dye out of your system ACTIVITIES May go up and down stairs CAREFULLY Do not drive car FOR 24 HOURS No heavy lifting GREATER THAN 5 POUNDS or pushing or straining FOR 2 DAYS Someone must stay with you at home after the procedure until the morning. BATHING/SHOWERING May tub bathe in 1 week May shower tomorrow WOUND CARE You will go home with a dressing over your heart cath site. Keep a dressing on for the next 24 hours and then leave open to air. Some degree of bruising and tenderness is normal around the heart cath site. It will take a while for any bruising to completely resolve. Keep your site clean and dry. You need to report the following to your spud grader: Any draining or oozing from the site Any swelling at the site Any increased pain or tenderness at the site Any numbness in your leg where the procedure was done Any signs of infection IMPORTANT! CALL 911 FOR ANY BLEEDING OR SWELLING AT THE PROCEDURE SITE If there is any large amount of bleeding, you or someone else need to apply direct pressure to the site (just like the nurse did in the heart lab after your procedure). It is very important that you hold constant pressure. Do not release the pressure to check if the bleeding has stopped. You then need to be transported to the nearest emergency room. WATCH FOR SIGNS OF INFECTION (Usually appears 36-48 hours after surgery) A temperature above 100.5 Redness or swelling Increased pain Foul odor or drainage If you have any questions, please call your doctor at the number listed on your follow up instructions. Follow all instructions given to you by your physician Document Released: 06/20/2006 Document Revised: 06/06/2013 Document Reviewed: 06/21/2014 ExitCare Patient Information 2015 [employer]. This information is not intended to replace advice given to you by your health care provider. Make sure you discuss any questions you have with your health care provider. Moderate Conscious Sedation, Adult Sedation is the use of medicines to promote relaxation and relieve discomfort and anxiety. Moderate conscious sedation is a type of sedation. Under moderate conscious sedation, you are less alert than normal, but you are still able to respond to instructions, touch, or both. Moderate conscious sedation is used during short medical and dental procedures. It is milder than deep sedation, which is a type of sedation under which you cannot be easily woken up. It is also milder than general anesthesia, which is the use of medicines to make you unconscious. Moderate conscious sedation allows you to return to your regular activities sooner. Tell a health care provider about: Any allergies you have. All medicines you are taking, including vitamins, herbs, eye drops, creams, and prsg-gyt-hnzfvwy medicines. Use of steroids (by mouth or creams). Any problems you or family members have had with sedatives and anesthetic medicines. Any blood disorders you have. Any surgeries you have had. Any medical conditions you have, such as sleep apnea. Whether you are or may be . Any use of cigarettes, alcohol, marijuana, or street drugs. What are the risks? Generally, this is a safe procedure. However, problems may occur, including: Getting too much medicine (oversedation). Nausea. Allergic reaction to medicines. Trouble breathing. If this happens, a breathing tube may be used to help with breathing. It will be removed when you are awake and breathing on your own. Heart trouble. Lung trouble. What happens before the procedure? Staying hydrated Follow instructions from your health care provider about hydration, which may include: Up to 2 hours before the procedure you may continue to drink clear liquids, such as water, clear fruit juice, black coffee, and plain tea. Eating and drinking restrictions Follow instructions from your health care provider about eating and drinking, which may include: 8 hours before the procedure stop eating heavy meals or foods such as meat, fried foods, or fatty foods. 6 hours before the procedure stop eating light meals or foods, such as toast or cereal. 6 hours before the procedure stop drinking milk or drinks that contain milk. 2 hours before the procedure stop drinking clear liquids. Medicine Ask your health care provider about: Changing or stopping your regular medicines. This is especially important if you are taking diabetes medicines or blood thinners. Taking medicines such as aspirin and ibuprofen. These medicines can thin your blood. Do not take these medicines before your procedure if your health care provider instructs you not to. Tests and exams You will have a physical exam. You may have blood tests done to show: ? How well your kidneys and liver are working. ? How well your blood can clot. General instructions Plan to have someone take you home from the hospital or clinic. If you will be going home right after the procedure, plan to have someone with you for 24 hours. What happens during the procedure? An IV tube will be inserted into one of your veins. Medicine to help you relax (sedative) will be given through the IV tube. The medical or dental procedure will be performed. What happens after the procedure? Your blood pressure, heart rate, breathing rate, and blood oxygen level will be monitored often until the medicines you were given have worn off. Do not drive for 24 hours. This information is not intended to replace advice given to you by your health care provider. Make sure you discuss any questions you have with your health care provider. Document Released: 03/15/2002 Document Revised: 06/02/2018 Document Reviewed: 10/09/2016 Elsevier Patient Education 2020 [employer] Additional Information VACCINATE! IT SAVES LIVES! Members of the community who have not yet received the COVID-19 vaccine and would like to receive it can visit one of [facility] vaccine clinics. There are many vaccine clinic locations within the [facility]. For locations and available times, please visit https://gettheshot.coronavirus.o neo.gov/. It is important to note that some COVID mobile vaccine clinics are held outdoors and may be canceled in rainy or stormy conditions. To learn more about pediatric vaccinations (ages 5-11), we invite you to visit the [facility] webpage. [email or web address] [email or web address]-[email or web address] [email or web address] To learn more about the COVID-19 vaccine, we invite you to visit the CDC website for a list of frequently asked questions. https://www.cdc.gov/coronavirus/ 2019-ncov/vaccines/faq.html [facility] Patient Portal Access Instructions: Stay connected with your healthcare team and access your personal medical information anytime with the [facility] Patient Portal.If you would like a full copy of your medical records, please contact the [facility] Medical Records Department, Tuesday through Tuesday between 8a.m. and 4:30p.m. Please follow the directions below to access the portal: 1.Access the email account you provided upon registration to the hospital.2.Look for an invitation email from [facility].3.Open the email and access the invitation link: Accept Invitation to [facility].Fill in the required najera to create your account. Sign into [email or web address] with your username and password that you created in the above steps to stay up to date. You can then view a summary of results, a summary of your visits, and the ability to download your summaries to your computer or send the information securely to a physician. Remember that your healthcare information is confidential, so carefully consider who you will allow to register on the [facility] Patient Portal for access to your information. You can also access the [facility] Patient Portal on the [employer] melvin. Simply click on "Health Records" under "Health Data" and then click on the [employer] logo. HOW TO SAFELY DISPOSE OF PRESCRIPTION MEDICATIONS Please use one of the following methods to safely dispose of your unused medications. 1.Use a drug disposal kit: the drug disposal pouch allows you to safely discard your old and unused drugs. Ask your nurse to give you one when you are discharged.2.Visit a local take-back location: Many local pharmacies and police departments have programs that collect old and unwanted prescription drugs. Call your local pharmacy or go to http://Privcap.[employer] Communications/2Y2Ce5i to find one close to you.3.Make use of household items: Use cat litter or old coffee grounds to dispose medications if other options are not available. Mix your drugs with these household products, seal them in an airtight container and throw it into the garbage. Call [facility]: [phone] to be sure your drugs can be disposed of in this way. Some medicines may require a different approach.4.Never flush your medications down the toilet. IF YOU HAVE BEEN PRESCRIBED AN OPIOID FOR PAIN If you have been prescribed an opioid (such as hydrocodone, oxycodone or morphine), it is critical to understand the possible side effects and risks of opioid pain medications. Even when taken as directed, opioids can have several side effects including: Tolerance, meaning you might need to take more of a medication for the same pain relief. Nausea, vomiting and/or constipation. Sleepiness, dizziness, dry mouth, confusion, depression or itching. Physical dependence, meaning you have withdrawal symptoms when a medication is stopped, can develop within a few days. KNOW YOUR RESPONSIBILITIES It is important to know exactly how much and how often to take the opioid pain medications you are prescribed. Never take opioids in higher amounts or more often than prescribed. Do not combine opioids with alcohol or other drugs that cause drowsiness, such as benzodiazepines, also known as benzos, including diazepam and alprazolam, muscle relaxants or sleep aids. Never sell or share prescription opioids. This is illegal. Store opioids in a secure place and out of reach of others (including children, family, friends and visitors). The last page of this document has been signed and retained as a CHART COPY. Signatures Patient Education Materials 3- Heart Cath/PCI groin (04/2018)(CUSTOM) Moderate Conscious Sedation, Adult Medication Leaflets My discharge plan and instructions have been reviewed and explained to me and I,GUNNAR RENTERIA understand my current condition and have read and understand these discharge instructions. I have received a written copy of the plan/instructions. If I have questions, I am aware that I should contact my doctor. Patient/Oncology Physician Assistant Signature: Date/Time: Relationship to Patient: Witness Name/Signature: Date/Time: [facility] 08-25-2022 Discharge summary Discharge Diagnosis CAD with ostial circumflex disease Aortic stenosis not severe History hypertension Hospital Course Patient is a pleasant 72-year-old gentleman who has a prior history of LAD stent was admitted for elective right heart cath. His echocardiogram report is not available was concerning for aortic stenosis. His stent in LAD was patent on the left heart cath however he does have a ostial circumflex disease that need a revascularization at some point. However his pullback gradient was not very significant for aortic stenosis. At this point I will have a discussion with the family with shared decision making we will repeat an echocardiogram. His filling pressures were normal with a normal PA sat normal cardiac output index. Patient will monitor the same day later discharged today Allergies No Known Medication Allergies Consults No qualifying data available. Objective Vitals and Measurements T: 36.4 C (Oral) HR: 52 RR: 16 BP: 151/78 SpO2: 100% HT: 172.7 cm WT: 74.9 kg BMI: 25.11 BMI: 25.11 Weight Dosing Weight: 74.9 kg (08/25/22) Patient oriented time place and person Lungs are clear S1-S2 regular rhythm Abdomen is soft No pedal edema Normal speech Code Status No qualifying data available. Admission Date August 25 Discharge Date August 25 Medications Unchanged amiodarone (Pacerone 200 mg oral tablet)1 tab(s) by mouth once a day. aspirin (aspirin 81 mg oral delayed release tablet)1 tab(s) by mouth once a day. atorvastatin (Lipitor 40 mg oral tablet)2 tab(s) by mouth once a day. lisinopril (lisinopril 10 mg oral tablet)1 tab(s) by mouth once a day. Follow Up Follow Up with JOSE SHANE MD When 09/30/2022 03:00 PM EDT Why: THIS APPOINTMENT WILL BE WITH JUANCHO PETERS CNP Where: [address] [facility] [address] [facility] [place] [address]- [phone] Follow Up Appointments No qualifying data available. Follow Up Labs/Studies Discharge Labs No Follow-up Labs Discharge Studies No Follow-up Studies Discharge Diet Discharge Diet - Ordered -- Follow the post-operative/post-procedure diet instructions provided by your physician's office., 08/25/22 13:12:00 EST Discharge Activity Discharge Activity - Ordered -- Lifting Restricted less than 5 pounds, 08/25/22 13:12:00 EST Readmission Risk/Palliative Score No qualifying data available. Discharge Disposition Home Digitally Signed by WINNIE ROTHMAN MD on 08/25/2022 01:14 PM [facility] 08-05-2022 Note HNO ID: [id number] Author: Donald Sykes DO Service: ? Author Type: Physician Type: Progress Notes Filed: 08/06/2022 3:33 AM Note Text: Referring Provider: Donald Sykes DO Date: August 05, 2022 Chief Complaint: Established Patient Follow-Up (Follow up for Stress Test results. ) HISTORY OF PRESENT ILLNESS: Gunnar Renteria is a 72 year old male who presents for Established Patient Follow-Up (Follow up for Stress Test results. ). ALLERGIES No Known Allergies PAST MEDICAL HISTORY: PAST MEDICAL HISTORY Diagnosis Date Benign essential HTN GOINS (dyspnea on exertion) Fatigue History of cardiovascular stress test 08/02/2022 EF 42%. No stress-induced reversible perfusion abnormality is seen. Mildly decreased cardiac systolic function. Hx of cardiac catheterization 02/02/2017 Severe disease noted in the proximal portion of the LAD and is a ring like lesion concentric stenosis Hx of cardiac catheterization 05/16/2000 EF 55% normal coronary arteries normal EF mildly elevated LVEDP normal aortic systolic BP Hx of cardiovascular stress test 03/01/2019 lexiscan protocol small inferior septal wall scar no ischemia apical wall dyskinesis. Dilated LV LBBB with multiple wide complexes that increased with exercise. Hyperlipidemia with target LDL less than 70 Intervertebral disk disease 01/2020 L3-L4 and lifts L1 L2 done in [place] Stented coronary artery 02/15/2017 DON Synergy to LAD PAST SURGICAL HISTORY Procedure Laterality Date BACK SURGERY HX 01/2020 History reviewed. No pertinent family history. SOCIAL HISTORY: Tobacco Use: Never Alcohol Use: Not Currently Drug Use: Never Employer And Job Title: None on file Years Of Education Completed: Not specified Marital Status: MEDICATIONS: Current Outpatient Medications Medication Sig lisinopril (ZESTRIL, PRINIVIL) 10 mg tablet Take 10 mg by mouth once daily. amiodarone (PACERONE) 200 mg tablet Take 1 tablet by mouth once daily. atorvastatin (LIPITOR) 40 mg tablet TAKE 2 TABLETS BY MOUTH EVERY EVENING aspirin, enteric coated (ASPIRIN, ENTERIC COATED) 81 mg EC tablet Take 81 mg by mouth once daily. No current facility-administered medications for this visit. I have personally reviewed the patients past medical history including social, family, surgical, diagnostics, and medications. REVIEW OF SYSTEMS: Review of Systems Constitutional: Negative for chills and fatigue. Respiratory: Positive for chest tightness and shortness of breath. Cardiovascular: Negative for chest pain, palpitations and leg swelling. Neurological: Positive for syncope and light-headedness. Negative for dizziness and weakness. Hematological: Bruises/bleeds easily. Psychiatric/Behavioral: Negative for confusion and hallucinations. Vitals: BP 124/62 (BP Site: Left Arm, BP Position: Sitting, BP Cuff Size: Regular Adult) Pulse 60 Ht 172.7 cm (5' 8") Wt 75.3 kg (166 lb) SpO2 94% BMI 25.24 kg/m? PHYSICAL EXAMINATION: BP 124/62 (BP Site: Left Arm, BP Position: Sitting, BP Cuff Size: Regular Adult) Pulse 60 Ht 172.7 cm (5' 8") Wt 75.3 kg (166 lb) SpO2 94% BMI 25.24 kg/m? Last 3 Encounter BP Readings: Date: BP: 07/26/2022 170/84 09/02/2021 136/80 12/03/2020 120/80 Last 3 Encounter Pulse Readings: Date: Pulse: 07/26/2022 53 09/02/2021 54 12/03/2020 50 Last 3 Encounter Wt Readings: Date: Wt: 07/26/2022 77.6 kg (171 lb) 09/02/2021 73 kg (161 lb) 12/03/2020 72.6 kg (160 lb 1.9 oz) Physical Exam Vitals reviewed. Constitutional: General: He is not in acute distress. Cardiovascular: Rate and Rhythm: Normal rate and regular rhythm. Pulses: Carotid pulses are 2+ on the right side and 2+ on the left side. Radial pulses are 2+ on the right side and 2+ on the left side. Femoral pulses are 2+ on the right side and 2+ on the left side. Popliteal pulses are 2+ on the right side and 2+ on the left side. Dorsalis pedis pulses are 2+ on the right side and 2+ on the left side. Posterior tibial pulses are 2+ on the right side and 2+ on the left side. Heart sounds: Murmur heard. Systolic murmur is present with a grade of 2/6. Comments: PMI not displaced. 2nd heart sound loud. Pulmonary: Effort: Pulmonary effort is normal. Breath sounds: Normal breath sounds. Abdominal: General: Abdomen is flat. Bowel sounds are normal. Palpations: Abdomen is soft. Tenderness: There is no abdominal tenderness. Musculoskeletal: Right lower leg: No edema. Left lower leg: No edema. Skin: General: Skin is warm. Findings: No rash or wound. Neurological: Mental Status: He is alert and oriented to person, place, and time. Coordination: Coordination is intact. LABS: No results found for: GLUC, K, NA, CHLOR, CO2, CREAT, BUN, ANION, CA, TPROT, ALB, TBILI, ALKPHOS, AST, ALT No results found for: HB, HCT, WBC No results found for: CHOL, HDL, LDL, TG EKG: (more content not included)... [facility] 08-05-2022 History of Presen t illness Narrative Referring Provider: Donald Sykes DO Date: August 05, 2022 Chief Complaint: Established Patient Follow-Up (Follow up for Stress Test results. ) HISTORY OF PRESENT ILLNESS: Gunnar Renteria is a 72 year old male who presents for Established Patient Follow-Up (Follow up for Stress Test results. ). ALLERGIES No Known Allergies PAST MEDICAL HISTORY: PAST MEDICAL HISTORY Diagnosis Date Benign essential HTN GOINS (dyspnea on exertion) Fatigue History of cardiovascular stress test 08/02/2022 EF 42%. No stress-induced reversible perfusion abnormality is seen. Mildly decreased cardiac systolic function. Hx of cardiac catheterization 02/02/2017 Severe disease noted in the proximal portion of the LAD and is a ring like lesion concentric stenosis Hx of cardiac catheterization 05/16/2000 EF 55% normal coronary arteries normal EF mildly elevated LVEDP normal aortic systolic BP Hx of cardiovascular stress test 03/01/2019 lexiscan protocol small inferior septal wall scar no ischemia apical wall dyskinesis. Dilated LV LBBB with multiple wide complexes that increased with exercise. Hyperlipidemia with target LDL less than 70 Intervertebral disk disease 01/2020 L3-L4 and lifts L1 L2 done in [place] Stented coronary artery 02/15/2017 DON Synergy to LAD PAST SURGICAL HISTORY Procedure Laterality Date BACK SURGERY HX 01/2020 History reviewed. No pertinent family history. SOCIAL HISTORY: Tobacco Use: Never Alcohol Use: Not Currently Drug Use: Never Employer And Job Title: None on file Years Of Education Completed: Not specified Marital Status: MEDICATIONS: Current Outpatient Medications Medication Sig lisinopril (ZESTRIL, PRINIVIL) 10 mg tablet Take 10 mg by mouth once daily. amiodarone (PACERONE) 200 mg tablet Take 1 tablet by mouth once daily. atorvastatin (LIPITOR) 40 mg tablet TAKE 2 TABLETS BY MOUTH EVERY EVENING aspirin, enteric coated (ASPIRIN, ENTERIC COATED) 81 mg EC tablet Take 81 mg by mouth once daily. No current facility-administered medications for this visit. I have personally reviewed the patients past medical history including social, family, surgical, diagnostics, and medications. REVIEW OF SYSTEMS: Review of Systems Constitutional: Negative for chills and fatigue. Respiratory: Positive for chest tightness and shortness of breath. Cardiovascular: Negative for chest pain, palpitations and leg swelling. Neurological: Positive for syncope and light-headedness. Negative for dizziness and weakness. Hematological: Bruises/bleeds easily. Psychiatric/Behavioral: Negative for confusion and hallucinations. Vitals: BP 124/62 (BP Site: Left Arm, BP Position: Sitting, BP Cuff Size: Regular Adult) Pulse 60 Ht 172.7 cm (5' 8") Wt 75.3 kg (166 lb) SpO2 94% BMI 25.24 kg/m PHYSICAL EXAMINATION: BP 124/62 (BP Site: Left Arm, BP Position: Sitting, BP Cuff Size: Regular Adult) Pulse 60 Ht 172.7 cm (5' 8") Wt 75.3 kg (166 lb) SpO2 94% BMI 25.24 kg/m Last 3 Encounter BP Readings: Date: BP: 07/26/2022 170/84 09/02/2021 136/80 12/03/2020 120/80 Last 3 Encounter Pulse Readings: Date: Pulse: 07/26/2022 53 09/02/2021 54 12/03/2020 50 Last 3 Encounter Wt Readings: Date: Wt: 07/26/2022 77.6 kg (171 lb) 09/02/2021 73 kg (161 lb) 12/03/2020 72.6 kg (160 lb 1.9 oz) Physical Exam Vitals reviewed. Constitutional: General: He is not in acute distress. Cardiovascular: Rate and Rhythm: Normal rate and regular rhythm. Pulses: Carotid pulses are 2+ on the right side and 2+ on the left side. Radial pulses are 2+ on the right side and 2+ on the left side. Femoral pulses are 2+ on the right side and 2+ on the left side. Popliteal pulses are 2+ on the right side and 2+ on the left side. Dorsalis pedis pulses are 2+ on the right side and 2+ on the left side. Posterior tibial pulses are 2+ on the right side and 2+ on the left side. Heart sounds: Murmur heard. Systolic murmur is present with a grade of 2/6. Comments: PMI not displaced. 2nd heart sound loud. Pulmonary: Effort: Pulmonary effort is normal. Breath sounds: Normal breath sounds. Abdominal: General: Abdomen is flat. Bowel sounds are normal. Palpations: Abdomen is soft. Tenderness: There is no abdominal tenderness. Musculoskeletal: Right lower leg: No edema. Left lower leg: No edema. Skin: General: Skin is warm. Findings: No rash or wound. Neurological: Mental Status: He is alert and oriented to person, place, and time. Coordination: Coordination is intact. LABS: No results found for: GLUC, K, NA, CHLOR, CO2, CREAT, BUN, ANION, CA, TPROT, ALB, TBILI, ALKPHOS, AST, ALT No results found for: HB, HCT, WBC No results found for: CHOL, HDL, LDL, TG EKG: DIAGNOSTIC TEST RESULTS: No results found for this or any previous visit (from the past 24 hour(s)). ASSESSMENT/PLAN: 1. Benign essential HTN - ICD9: 401.1, ICD10: I10 (primary diagnosis) Patient's blood pressure in the office today was recorded as 124/62. Target systolic BP 140 or less and diastolic BP 90 or less. Continue current medications. 2. Stented coronary artery - ICD9: V45.82, ICD10: Z95.5 Stent was done 02/15/2017 and showed DON Synergy to LAD. Patient is having heaviness pressure in his chest again this occurred when he was uphill. This suggest classic angina 3. Hyperlipidemia LDL goal <70 - ICD9: 272.4, ICD10: E78.5 Patient is currently taking Atorvastatin 40mg (two tablets before bed) every day. Lipids are managed by PCP. 4. Hx of cardiac catheterization - ICD9: V45.89, ICD10: Z98.890 Cath was done 02/02/2017 and showed Severe disease noted in the proximal portion of the LAD and is a ring like lesion concentric stenosis 5. Hx of cardiovascular stress test - ICD9: V15.89, ICD10: Z92.89 Stress Test was done 08/02/2022 and showed EF 42%. No stress-induced reversible perfusion abnormality is seen. Mildly decreased cardiac systolic function. The ejection fraction is declining could cause for declining ejection fraction is CAD now with the patient having classic anginal symptoms I do believe a repeat heart catheterization is warranted 6. Non-smoker - ICD9: V49.89, ICD10: Z78.9 Patient is a non-smoker. 7.-Patient is an exam. The second heart sound is decreased. Patient needs a heart catheterization for underlying CAD chest heaviness and pressure at that time I am asking for a crossing of the aortic valve to get a gradient. Also a right and left heart catheterization to get aortic valve area. The patient has suspicion for critical coronary atherosclerosis. This is a potential life-threatening situation. In light of this, I feel at this time the patient requires the need for heart catheterization. I feel that life itself is in jeopardy and this needs to be completed soon. The risk/benefit ratio of doing a heart catheterization and how it is done was explained to the patient in great detail, puncture site, risk of a stroke, risk of bleeding. Also discussed with patient the heart has three arteries. If there is one artery involved, we will go ahead and consider doing the stenting. If the stenting is done we will probably keep the patient for the night. If all three arteries are involved we will go ahead and get a surgical consultation to discuss open heart bypass surgery. Also discussed that if there are only two arteries involved, we will consider multiple vessel angioplasty or bypass, all depends upon the consultation of my colleagues at that time. We discussed the diet, and asked about an iodine allergy. Discussed complications of conscious sedation. Patient agreed to have a heart catheterization set up will make arrangements as soon as possible I, Fany Hernandez MA , scribing for Dr. Donald Sykes, was present in the room during the examination Follow up in: [address] Sykes for Prior to entering the room, I reviewed the last progress note including the diagnosis and plan of action. When available, I then reviewed the last heart catheterization, stress test, echocardiogram and EKG. I proceeded to review the medial therapy and any side effects the patient may have had in the past. I was able to look at the last several EKGs. A new EKG was performed today and an interetation was performed. I reviewed its interpretation with the family and compared it to the previous EKGs that we have in the medical records. Changes were described to the patient. In a pictorial format; I described the ME and QRS intervals. This was to show the effects of antiarrhythmic therapy on the electrical system. I was able to look at the past several EKG's. A new EKG was performed today and interpretation was noted. I reviewed this interpretation with the patient, and the family when available, and compared it to the previous EKG's that we have in the medical record. Since my office visit was carried out with a scribe, while in the exam room I was able to devote one hundred percent of my time in [id number] conversation with the patient. I answered all the questions and explained the diagnosis of classic anginal symptomatology coupled with declining EF on ejection fraction suggesting triple-vessel disease. Greater that 51% of my time was spent with [id number] conversation with the patient. I have discussed the recommended treatment, alternative therapies and other options in detail. I've discussed the best benefit and side effects of these recommended treatments. I've attempted to answer all the questions to the patient's satisfaction and understanding. With approval, we would recommend an pursue the current therapy such as set up a heart catheterization for CAD and right and left heart catheterization for severe aortic stenosis. After leaving the exam room, I went back into the patient's chart and coordinated care with my nurse ordering the proper testing and medicinal changes. Letter was performed with voice recognition algorithms and sent to the referring team. The chart was completed. Including the pre-exam, exam and post-exam, the total time spent in the patient's management was greater than 15 minutes I, Dr. Donald Sykes, have reviewed and agree with the information in the medical record. Donald Sykes DO documented in this encounter [facility] 07-27-2022 Miscellaneous Notes Scheduled stress at [facility] 08/02 at 745 am Patient's advised of date,time and instructions Order faxed No auth required for Self pay Tyler Dykes Prior authorization request for [place] [facility] Perf Stress/Pharm is being submitted for review. TO BE DONE AT [facility] Aston Camarillo MA documented in this encounter [facility] 07-26-2022 Note HNO ID: [id number] Author: Julieta Ramirez APRN.GIGI Service: ? Author Type: Nurse Practitioner Type: Progress Notes Filed: 07/26/2022 10:10 AM Note Text: [facility] Department of Cardiology Referring Provider: Self Date: July 26, 2022 Subjective: Gunnar Renteria is a 72 year old, established male who presents increased SOB. Patient reports that with all activities he has been noticing an increase in shortness of breath. His son has even pointed out that he is short of breath and fatigues very easily. Patient denies any headaches, dizziness, or syncopal episodes. Patient denies any chest pain or chest discomfort. ALLERGIES No Known Allergies PAST MEDICAL HISTORY: PAST MEDICAL HISTORY Diagnosis Date Benign essential HTN GOINS (dyspnea on exertion) Fatigue Hx of cardiac catheterization 02/02/2017 Severe disease noted in the proximal portion of the LAD and is a ring like lesion concentric stenosis Hx of cardiac catheterization 05/16/2000 EF 55% normal coronary arteries normal EF mildly elevated LVEDP normal aortic systolic BP Hx of cardiovascular stress test 03/01/2019 lexiscan protocol small inferior septal wall scar no ischemia apical wall dyskinesis. Dilated LV LBBB with multiple wide complexes that increased with exercise. Hyperlipidemia with target LDL less than 70 Intervertebral disk disease 01/2020 L3-L4 and lifts L1 L2 done in [place] Stented coronary artery 02/15/2017 DON Synergy to LAD PAST SURGICAL HISTORY Procedure Laterality Date BACK SURGERY HX 01/2020 History reviewed. No pertinent family history. SOCIAL HISTORY: Tobacco Use: Never Alcohol Use: Not Currently Drug Use: Never Employer And Job Title: None on file Years Of Education Completed: Not specified Marital Status: MEDICATIONS: Current Outpatient Medications Medication Sig amiodarone (PACERONE) 200 mg tablet Take 1 tablet by mouth once daily. atorvastatin (LIPITOR) 40 mg tablet TAKE 2 TABLETS BY MOUTH EVERY EVENING aspirin, enteric coated (ASPIRIN, ENTERIC COATED) 81 mg EC tablet Take 81 mg by mouth once daily. isosorbide mononitrate ER (IMDUR) 30 mg 24 hr tablet Take 1 tablet by mouth once daily. (Patient not taking: Reported on 07/26/2022) lisinopril (ZESTRIL, PRINIVIL) 10 mg tablet Take 1 tablet by mouth once daily. (Patient not taking: No sig reported) hydroCHLOROthiazide (HYDRODIURIL, ESIDRIX) 12.5 mg tablet Take 1 tablet by mouth once daily. (Patient not taking: No sig reported) No current facility-administered medications for this visit. I have personally reviewed the patients past medical history including social, family, surgical, diagnostics, and medications./AB REVIEW OF SYSTEMS: Review of Systems Constitutional: Negative for chills and fatigue. Respiratory: Positive for shortness of breath. Negative for chest tightness. Cardiovascular: Positive for chest pain. Negative for palpitations and leg swelling. Neurological: Positive for light-headedness. Negative for dizziness, syncope and weakness. Hematological: Bruises/bleeds easily. Psychiatric/Behavioral: Negative for confusion and hallucinations. Vitals: BP 170/84 (BP Site: Left Arm, BP Position: Sitting, BP Cuff Size: Large Adult) Pulse (!) 53 Ht 172.7 cm (5' 8") Wt 77.6 kg (171 lb) SpO2 98% BMI 26.00 kg/m? PHYSICAL EXAMINATION: BP 170/84 (BP Site: Left Arm, BP Position: Sitting, BP Cuff Size: Large Adult) Pulse (!) 53 Ht 172.7 cm (5' 8") Wt 77.6 kg (171 lb) SpO2 98% BMI 26.00 kg/m? Last 3 Encounter BP Readings: Date: BP: 09/02/2021 136/80 12/03/2020 120/80 03/03/2020 118/70 Last 3 Encounter Pulse Readings: Date: Pulse: 09/02/2021 54 12/03/2020 50 03/03/2020 57 Last 3 Encounter Wt Readings: Date: Wt: 09/02/2021 73 kg (161 lb) 12/03/2020 72.6 kg (160 lb 1.9 oz) 03/03/2020 69 kg (152 lb 1.9 oz) Physical Exam Vitals reviewed. Constitutional: General: He is not in acute distress. Appearance: Normal appearance. He is not ill-appearing or diaphoretic. HENT: Head: Normocephalic. Right Ear: External ear normal. Left Ear: External ear normal. Nose: Nose normal. Mouth/Throat: Mouth: Mucous membranes are moist. Eyes: Extraocular Movements: Extraocular movements intact. Cardiovascular: Rate and Rhythm: Normal rate and regular rhythm. Pulses: Normal pulses. Carotid pulses are 2+ on the right side and 2+ on the left side. Radial pulses are 2+ on the right side and 2+ on the left side. Femoral pulses are 2+ on the right side and 2+ on the left side. Popliteal pulses are 2+ on the right side and 2+ on the left side. Dorsalis pedis pulses are 2+ on the right side and 2+ on the left side. Posterior tibial pulses are 2+ on the right side and 2+ on the left side. Heart sounds: Normal heart sounds. No murmur heard. Pulmonary: Effort: Pulmonary effort is normal. Breath sounds: Normal breath sounds. No whee (more content not included)... [facility] 07-26-2022 History of Presen t illness Narrative [facility] Department of Cardiology Referring Provider: Self Date: July 26, 2022 Subjective: Gunnar Renteria is a 72 year old, established male who presents increased SOB. Patient reports that with all activities he has been noticing an increase in shortness of breath. His son has even pointed out that he is short of breath and fatigues very easily. Patient denies any headaches, dizziness, or syncopal episodes. Patient denies any chest pain or chest discomfort. ALLERGIES No Known Allergies PAST MEDICAL HISTORY: PAST MEDICAL HISTORY Diagnosis Date Benign essential HTN GOINS (dyspnea on exertion) Fatigue Hx of cardiac catheterization 02/02/2017 Severe disease noted in the proximal portion of the LAD and is a ring like lesion concentric stenosis Hx of cardiac catheterization 05/16/2000 EF 55% normal coronary arteries normal EF mildly elevated LVEDP normal aortic systolic BP Hx of cardiovascular stress test 03/01/2019 lexiscan protocol small inferior septal wall scar no ischemia apical wall dyskinesis. Dilated LV LBBB with multiple wide complexes that increased with exercise. Hyperlipidemia with target LDL less than 70 Intervertebral disk disease 01/2020 L3-L4 and lifts L1 L2 done in [place] Stented coronary artery 02/15/2017 DON Synergy to LAD PAST SURGICAL HISTORY Procedure Laterality Date BACK SURGERY HX 01/2020 History reviewed. No pertinent family history. SOCIAL HISTORY: Tobacco Use: Never Alcohol Use: Not Currently Drug Use: Never Employer And Job Title: None on file Years Of Education Completed: Not specified Marital Status: MEDICATIONS: Current Outpatient Medications Medication Sig amiodarone (PACERONE) 200 mg tablet Take 1 tablet by mouth once daily. atorvastatin (LIPITOR) 40 mg tablet TAKE 2 TABLETS BY MOUTH EVERY EVENING aspirin, enteric coated (ASPIRIN, ENTERIC COATED) 81 mg EC tablet Take 81 mg by mouth once daily. isosorbide mononitrate ER (IMDUR) 30 mg 24 hr tablet Take 1 tablet by mouth once daily. (Patient not taking: Reported on 07/26/2022) lisinopril (ZESTRIL, PRINIVIL) 10 mg tablet Take 1 tablet by mouth once daily. (Patient not taking: No sig reported) hydroCHLOROthiazide (HYDRODIURIL, ESIDRIX) 12.5 mg tablet Take 1 tablet by mouth once daily. (Patient not taking: No sig reported) No current facility-administered medications for this visit. I have personally reviewed the patients past medical history including social, family, surgical, diagnostics, and medications./AB REVIEW OF SYSTEMS: Review of Systems Constitutional: Negative for chills and fatigue. Respiratory: Positive for shortness of breath. Negative for chest tightness. Cardiovascular: Positive for chest pain. Negative for palpitations and leg swelling. Neurological: Positive for light-headedness. Negative for dizziness, syncope and weakness. Hematological: Bruises/bleeds easily. Psychiatric/Behavioral: Negative for confusion and hallucinations. Vitals: BP 170/84 (BP Site: Left Arm, BP Position: Sitting, BP Cuff Size: Large Adult) Pulse (!) 53 Ht 172.7 cm (5' 8") Wt 77.6 kg (171 lb) SpO2 98% BMI 26.00 kg/m PHYSICAL EXAMINATION: BP 170/84 (BP Site: Left Arm, BP Position: Sitting, BP Cuff Size: Large Adult) Pulse (!) 53 Ht 172.7 cm (5' 8") Wt 77.6 kg (171 lb) SpO2 98% BMI 26.00 kg/m Last 3 Encounter BP Readings: Date: BP: 09/02/2021 136/80 12/03/2020 120/80 03/03/2020 118/70 Last 3 Encounter Pulse Readings: Date: Pulse: 09/02/2021 54 12/03/2020 50 03/03/2020 57 Last 3 Encounter Wt Readings: Date: Wt: 09/02/2021 73 kg (161 lb) 12/03/2020 72.6 kg (160 lb 1.9 oz) 03/03/2020 69 kg (152 lb 1.9 oz) Physical Exam Vitals reviewed. Constitutional: General: He is not in acute distress. Appearance: Normal appearance. He is not ill-appearing or diaphoretic. HENT: Head: Normocephalic. Right Ear: External ear normal. Left Ear: External ear normal. Nose: Nose normal. Mouth/Throat: Mouth: Mucous membranes are moist. Eyes: Extraocular Movements: Extraocular movements intact. Cardiovascular: Rate and Rhythm: Normal rate and regular rhythm. Pulses: Normal pulses. Carotid pulses are 2+ on the right side and 2+ on the left side. Radial pulses are 2+ on the right side and 2+ on the left side. Femoral pulses are 2+ on the right side and 2+ on the left side. Popliteal pulses are 2+ on the right side and 2+ on the left side. Dorsalis pedis pulses are 2+ on the right side and 2+ on the left side. Posterior tibial pulses are 2+ on the right side and 2+ on the left side. Heart sounds: Normal heart sounds. No murmur heard. Pulmonary: Effort: Pulmonary effort is normal. Breath sounds: Normal breath sounds. No wheezing. Abdominal: General: Abdomen is flat. Bowel sounds are normal. Palpations: Abdomen is soft. Tenderness: There is no abdominal tenderness. There is no guarding. Musculoskeletal: General: Normal range of motion. Cervical back: Normal range of motion. Right lower leg: No edema. Left lower leg: No edema. Skin: General: Skin is warm. Capillary Refill: Capillary refill takes 2 to 3 seconds. Coloration: Skin is pale. Skin is not jaundiced. Findings: No bruising, rash or wound. Neurological: General: No focal deficit present. Mental Status: He is alert and oriented to person, place, and time. Mental status is at baseline. Motor: No weakness. Coordination: Coordination is intact. Psychiatric: Mood and Affect: Mood normal. Thought Content: Thought content normal. Judgment: Judgment normal. LABS: No results found for: GLUC, K, NA, CHLOR, CO2, CREAT, BUN, ANION, CA, TPROT, ALB, TBILI, ALKPHOS, AST, ALT No results found for: HB, HCT, WBC No results found for: CHOL, HDL, LDL, TG EKG: DIAGNOSTIC RESULTS: ASSESSMENT/PLAN: 1. SOB (shortness of breath) - ICD9: 786.05, ICD10: R06.02 (primary diagnosis) -Patient is experiencing increased shortness of breath and fatigue - NM CARDIAC PERF STRESS/PHARM 2. Benign essential HTN - ICD9: 401.1, ICD10: I10 -Today's blood pressure is 170/84 -Goal blood pressure < 140/90 -Fair control -Patient quit taking his BP meds -We will reevaluate in follow-up appointment. 3. Hx of cardiac catheterization - ICD9: V45.89, ICD10: Z98.890 -History of a heart catheterization from 05/16/2020 -EF 55% normal coronary arteries normal EF mildly elevated LVEDP normal aortic systolic BP 4. Hx of cardiovascular stress test - ICD9: V15.89, ICD10: Z92.89 -History of cardiovascular stress test from 03/01/2019 -lexiscan protocol small inferior septal wall scar no ischemia apical wall dyskinesis. Dilated LV LBBB with multiple wide complexes that increased with exercise. 5. Stented coronary artery - ICD9: V45.82, ICD10: Z95.5 -History of a cardiac stent from 02/15/2017 -DON Synergy to LAD -Due to increased shortness of breath will have patient complete Lexiscan stress test to reevaluate 6. Never smoked cigarettes - ICD9: V49.89, ICD10: Z78.9 Julieta Ramirez APRN.CNP Follow up in: 8 weeks SOB/Test Rsults Greater than 50% of this > 20 minute visit was spent face to face discussing current diagnosis and treatment plan consisting of above outlined plan. Follow-up as documented above. I have discussed the recommended treatment, alternative treatments and other treatment options in detail. I have discussed the risks, benefits and side effect of the recommended treatment. I have attempted to answer all their questions to their satisfaction and understanding of the explanation has been voiced. With approval we will pursue the recommended treatment. During this office visit I reviewed the patients previous Cardiac testing and procedures results and reviewed the results with the patient. I, Julieta Ramirez CNP have reviewed and agree with the information in the medical record transcribed by Aston Camarillo MA. Julieta Ramirez APRN.GIGI This patient note was partially generated from using the Dragon voice recognition system. There may be some incorrect words, spelling, and punctuation that were not noted in checking the note prior to saving documented in this encounter [facility] Evaluation + Plan note Future Appointments Appointment Date:09/30/2022 03:00:00 PM Scheduled Provider:JUANCHO PETERS Location:[facility] Appointment Type:CV [facility] Hospital Follow Up [facility] Evaluation + Plan note Future Appointments Appointment Date:01/25/2023 02:45:00 PM Scheduled Provider: Location:[facility] Appointment Type:CV OV [facility] Evaluation note Diagnosis SOB (shortness of breath)- Primary Shortness of breath Benign essential HTN Essential hypertension, benign Hx of cardiac catheterization Other postprocedural status Hx of cardiovascular stress test Other specified personal history presenting hazards to health Stented coronary artery Postsurgical percutaneous transluminal coronary angioplasty status Never smoked cigarettes Other specified conditions influencing health status documented [facility] this [facility] Diagnosis Benign essential HTN- Primary Essential hypertension, benign Stented coronary artery Postsurgical percutaneous transluminal coronary angioplasty status Hyperlipidemia LDL goal <70 Other and unspecified hyperlipidemia Hx of cardiac catheterization Other postprocedural status Hx of cardiovascular stress test Other specified personal history presenting hazards to health Non-smoker Other specified conditions influencing health status SOB (shortness of breath) Shortness of breath [facility] Diagnosis Hyperlipidemia LDL goal <70 Other and unspecified hyperlipidemia Stented coronary artery Postsurgical percutaneous transluminal coronary angioplasty status [facility] Diagnosis Benign essential HTN- Primary Essential hypertension, benign Hyperlipidemia LDL goal <70 Other and unspecified hyperlipidemia Stented coronary artery Postsurgical percutaneous transluminal coronary angioplasty status Hx of cardiac catheterization Other postprocedural status Hx of cardiovascular stress test Other specified personal history presenting hazards to health History of echocardiogram Other specified personal history presenting hazards to health Non-smoker Other specified conditions influencing health status [facility] Diagnosis Benign essential HTN- Primary Essential hypertension, benign Hyperlipidemia LDL goal <70 Other and unspecified hyperlipidemia Stented coronary artery Postsurgical percutaneous transluminal coronary angioplasty status Hx of cardiovascular stress test Other specified personal history presenting hazards to health History of echocardiogram Other specified personal history presenting hazards to health History of left heart catheterization (LHC) Non-smoker Other specified conditions influencing health status [facility] Diagnosis Benign essential HTN- Primary Essential hypertension, benign Hyperlipidemia LDL goal <70 Other and unspecified hyperlipidemia Hx of cardiac catheterization Other postprocedural status Hx of cardiovascular stress test Other specified personal history presenting hazards to health Stented coronary artery Postsurgical percutaneous transluminal coronary angioplasty status History of echocardiogram Other specified personal history presenting hazards to health Non-smoker Other specified conditions influencing health status SOB (shortness of breath) Shortness of breath documented in this encounter [facility] Narrative No data available for this section [facility] Hospital Discharge instructions No data available for this section [facility] Note* SYSTEM: SIGN, VERIFY, SIGN, MODIFY Event Display: Cardiac Catheterization -CV Authored Date: [facility] Reason for referral (narrative)* Diagnostic Procedure Only (Routine) - Pending Review Specialty Diagnoses / Procedures Referred By Brent hinton Referred To Contact [facility] FUN[facility]AGING Diagnoses SOB (shortness of breath) Procedures NM CARDIAC PERF STRESS/PHARM MYOCARDIAL SPECT MULTIPLE STUDIES Julieta Ramirez APRN.CNP [address] [id number] [facility] [address] [place] [address] Referral ID Status Reason Start Date Expiration Date Visits Requested Visits Authorized [id number] Pending Review Auto-Generat ed Referral 07/26/2022 08/25/2023 1 1 [facility] for referral (narrative)* Outpatient Procedure (Routine) - Pending Review Specialty Diagnoses / Procedures Referred By Contlouann t Referred To Contact [facility] Diagnoses Benign essential HTN Procedures ECG COMPLETE ECG ROUTINE ECG W/LEAST 12 LDS W/I&R Donald Sykes DO [address] [address] [facility] [address] [place] [address] Referral ID Status Reason Start Date Expiration Date Visits Requested Visits Authorized [id number] Pending Review Auto-Generat ed Referral 02/25/2023 02/25/2024 1 1 [facility] Outpatient Procedure (Routine) - New Request Specialty Diagnoses / Procedures Referred By Brent hinton Referred To Contact [facility] Diagnoses Benign essential HTN Procedures ECG COMPLETE ECG ROUTINE ECG W/LEAST 12 LDS W/I&R Donald Sykes DO [address] [place] [address] [facility] [address] [place] [address] Referral ID Status Reason Start Date Expiration Date Visits Requested Visits Authorized [id number] New Request Auto-Generat ed Referral 02/29/2024 02/28/2025 1 1 [facility] Summary Purpose Family History No Family History Records FoundNo Family History Records FoundNo Family History Records FoundNo Family History Records FoundNo Family History Records FoundNo Family History Records FoundNo Family History Records FoundNo Family History Records Found Advance Directives No Advanced Directives Records FoundNo Advanced Directives Records FoundNo Advanced Directives Records FoundNo Advanced Directives Records FoundNo Advanced Directives Records FoundNo Advanced Directives Records FoundNo Advanced Directives Records FoundNo Advanced Directives Records Found Additional Source Comments (unrecognized sect ion and content) No Status Records FoundNo Status Records FoundNo Status Records FoundNo Status Records FoundNo Status Records FoundNo Status Records FoundNo Status Records FoundNo Status Records Found INFORMATION SOURCE (unrecogn ized section and content) DATE CREATED AUTHOR 12/20/2019 [facility] ([place]) DATE CREATED AUTHOR AUTHOR'S ORGANIZ ATION 01/24/2020 [facility] DATE CREATED AUTHOR AUTHOR'S ORGANIZ ATION 10/30/2022 [facility] ([place]) DATE CREATED AUTHOR AUTHOR'S ORGANIZ ATION 11/13/2022 [facility] DATE CREATED AUTHOR AUTHOR'S ORGANIZ ATION 03/07/[address] [facility] DATE CREATED AUTHOR AUTHOR'S ORGANIZ ATION 03/17/2025 [facility] DATE CREATED AUTHOR AUTHOR'S ORGANIZ ATION 03/21/2025 [facility] DATE CREATED AUTHOR AUTHOR'S ORGANIZ ATION 05/08/2025 [facility] Source Comments (unrecognize d section and content) In the event this informatio n is protected by the Federal Confidentiality of Alcohol and Drug Abuse Patient Records regulations: The Federal rules restrict any use of the information to criminally investigate or prosecute any alcohol or drug abuse patient.[facility] the event this information is protected by the Federal Confidentiality of Alcohol and Drug Abuse Patient Records regulations: The Federal rules restrict any use of the information to criminally investigate or prosecute any alcohol or drug abuse patient.[facility] the event this information is protected by the Federal Confidentiality of Alcohol and Drug Abuse Patient Records regulations: The Federal rules restrict any use of the information to criminally investigate or prosecute any alcohol or drug abuse patient.[facility] the event this information is protected by the Federal Confidentiality of Alcohol and Drug Abuse Patient Records regulations: The Federal rules restrict any use of the information to criminally investigate or prosecute any alcohol or drug abuse patient.[facility] the event this information is protected by the Federal Confidentiality of Alcohol and Drug Abuse Patient Records regulations: The Federal rules restrict any use of the information to criminally investigate or prosecute any alcohol or drug abuse patient.[facility] the event this information is protected by the Federal Confidentiality of Alcohol and Drug Abuse Patient Records regulations: The Federal rules restrict any use of the information to criminally investigate or prosecute any alcohol or drug abuse patient.[facility] the event this information is protected by the Federal Confidentiality of Alcohol and Drug Abuse Patient Records regulations: The Federal rules restrict any use of the information to criminally investigate or prosecute any alcohol or drug abuse patient.[facility] the event this information is protected by the Federal Confidentiality of Alcohol and Drug Abuse Patient Records regulations: The Federal rules restrict any use of the information to criminally investigate or prosecute any alcohol or drug abuse patient.[facility] the event this information is protected by the Federal Confidentiality of Alcohol and Drug Abuse Patient Records regulations: The Federal rules restrict any use of the information to criminally investigate or prosecute any alcohol or drug abuse patient.[facility] the event this information is protected by the Federal Confidentiality of Alcohol and Drug Abuse Patient Records regulations: The Federal rules restrict any use of the information to criminally investigate or prosecute any alcohol or drug abuse patient.[facility] the event this information is protected by the Federal Confidentiality of Alcohol and Drug Abuse Patient Records regulations: The Federal rules restrict any use of the information to criminally investigate or prosecute any alcohol or drug abuse patient.[facility] the event this information is protected by the Federal Confidentiality of Alcohol and Drug Abuse Patient Records regulations: The Federal rules restrict any use of the information to criminally investigate or prosecute any alcohol or drug abuse patient.[facility] Reason for Visit (unrecogniz ed section and content) Reason Comments Follow Up Reason Comments PA for NM Cardiac Perf Stress/Pharm Reason Comments Established Patient Follow-Up Follow up for Stress Test results. Reason Onset Date Comments Refill Request 08/26/2022 Reason Comments Established Patient Follow-Up 6 month fo llow up, hx of Cath and . Reason Onset Date Comments Refill Request 10/31/2023 Reason Comments Established Patient Follow-Up HTN Specialty Diagnoses / Procedures Referred By Contac t Referred To Contact Cardiology / CARDIOLOGY Diagnoses 1 year follow up (KA) Procedures EST PATIENT Self Donald Sykes DO [address] [place] [address] Referral ID Status Reason Start Date Expiration Date V isits Requested Visits Authorized [id number] Closed Financial Clearance Required - OON Payor Patient Cleared - [employer]ar 02/29/2024 05/29/2024 1 1 Reason Comments Refill Request Reason Comments Established Patient 1 year follow-up HTN Specialty Diagnoses / Procedures Referred By Contac t Referred To Contact Cardiology / CARDIOLOGY Diagnoses 1 year f/u HTN Procedures EST PATIENT Donald Sykes DO [address] [place] [address] Phone: tel: fax: Donald Sykes DO [address] [place] [address] Phone: tel: fax: Referral ID Status Reason Start Date Expiration Date V isits Requested Visits Authorized [id number] Closed Financial Clearance Required - Self Pay Patient Cleared - [employer]ar 02/28/2025 05/29/2025 1 1 Reason Comments Appointment Care Teams (unrecognized sec tion and content) Primary Counselor Relationship Specialty Start Date End Date Zeb Renteria MD [address] [place], [place] [id number] PCP - General Family Medicine 07/26/22 Primary Counselor Relationship Specialty Start Date End Date Zeb Renteria MD [address] [place], [place] [id number] PCP - General Family Medicine 07/26/22 Primary Counselor Relationship Specialty Start Date End Date Zeb Renteria MD [address] [place], [place] [id number] PCP - General Family Medicine 07/26/22 Primary Counselor Relationship Specialty Start Date End Date Zeb Renteria MD [address] [place], [place] [id number] PCP - General Family Medicine 07/26/22 Primary Counselor Relationship Specialty Start Date End Date Zeb Renteria MD [address] [place], [place] [id number] PCP - General Family Medicine 07/26/22 Primary Counselor Relationship Specialty Start Date End Date Zeb Renteria MD [address] [place], [place] [id number] PCP - General Family Medicine 07/26/22 Primary Counselor Relationship Specialty Start Date End Date Zeb Renteria MD [address] [place], [place] [id number] PCP - General Family Medicine 07/26/22 Primary Counselor Relationship Specialty Start Date End Date Amanda Renteria CNP [address] [place] [address] PCP - General Family Medicine 02/29/24 Primary Counselor Relationship Specialty Start Date End Date Amanda Renteria CNP [address] [place] [address] PCP - General Family Medicine 02/29/24 Primary Counselor Relationship Specialty Start Date End Date Amanda Renteria CNP [address] [place] [address] PCP - General [facility] 02/29/24 Primary Counselor Relationship Specialty Start Date End Date Amanda Renteria CNP [address] [place] [address] PCP - General [facility] Medicine 02/29/24 Care Team (unrecognized sect ion and content) Care Team Personnel Name: PHYSICIAN, PATIENT UNSURE Member Role: Primary Care Physician Care Team Related Persons Name: MARY KATE RENTERIA FOR RECORDS PERTAINING TO PATIENTS WHO ARE OR HAVE BEEN ENROLLED IN A CHEMICAL DEPENDENCY/SUBSTANCEABUSE PROGRAM, SOME INFORMATION MAY BE OMITTED. This clinical summary was aggregated from multiple sources. Caution should be exercised in using it in the provision of clinical care. This summary normalizes information from multiple sources, and as a consequence, information in this document may materially change the coding, format and clinical context of patient data. In addition, data may be omitted in some cases. CLINICAL DECISIONS SHOULD BE BASED ON THE PRIMARY CLINICAL RECORDS. [facility] [employer] provides no warranty or guarantee of the accuracy or completeness of information in this document.
--- NOTE | 2025-05-20 11:24 | CL.D_ITS ---
Patient Name: GUNNAR RENTERIA Study Date: 05/20/2025 Performing: Thiago Ambrocio MD Ht: 68 inches 172.72 cm : 1950 Wt: 162 lbs 73.48 kg Age: 74 Gender: male BSA: 1.87 PROCEDURE(S) PERFORMED DC01-([id number])LHC/COR/LV CLINICAL PROFILE AND INDICATIONS Indications: Suspected CAD Heart Failure: None Stress/Imaging Date: 03/15/25Stress Test with SPECT MPI: Positive Low Risk CAD Presentations: Stable angina. CONCLUSIONS Coronary disease with previously placed stent in the LAD which is patent ostial circumflex stenosis which is unchanged from before and left ventricular hypertrophy and preserved ejection fraction. RECOMMENDATIONS Medical therapy DESCRIPTION OF PROCEDURE The patient arrived to the procedure lab. The risks and benefits of the procedure as well as a full description of our services here and current unavailability of surgical backup were fully explained to the patient and/or their significant other prior to the catheterization. The Timeout was completed, verifying the correct patient and procedure. The patient's procedural site was prepped and draped in the usual fashion. Local anesthetic was given subcutaneously to right radial region with Lidocaine 2%. Using a modified Seldinger technique, arterial access was obtained via the right radial artery, a 6Fr sheath was inserted. Left Coronary Artery selective angiography was performed in multiple views using a 5 Fr. 4.0 Casco catheter. Right Coronary Artery selective angiography was then performed in multiple views using a 5 Fr. 4.0 Casco catheter. Left Ventriculography was performed in RODRIGUEZ projection using a 5 Fr. Pigtail catheter. LV to AO pullback pressures were then recorded.The arterial sheath was pulled and a TR Band was applied for hemostasis CORONARY ANGIOGRAPHY DOMINANCE: Right Dominant LEFT HEART ASSESSMENT Left Ventricular Ejection Fraction: by LV Gram 55 % Normal LV wall motion Normal Left Ventricular systolic function LEFT MAIN: Angiographically normal LEFT ANTERIOR DESCENDING ARTERY: Previously placed stent is patent CIRCUMFLEX ARTERY: The rest of the circumflex artery appears to be unremarkable. OSTIAL CIRC: 70 % Stenosis RIGHT CORONARY ARTERY: Minimal proximal disease and moderate 50 to 60% stenosis of the bifurcation of the posterolateral vessel. The posterior descending artery is free of significant disease. COMPLICATIONS No Complications PROCEDURE MEDICATIONS Versed 1 mg IV Fentanyl 50 mcg IV Oxygen: 2 L/min via nasal cannula Heparin given IA 05/20/2025 11:02:12 SUMMARY OF HEMODYNAMIC DATA Time AIR REST ECG 07:31:16 AO 130/43 (67) SA 11:06:38 LV 134/2, 10 11:11:55 LV 123/5, 11 11:12:05 LVp 105/32, 39 11:12:54 AOp 125/64 (89) 11:13:01 Signed By Thiago Ambrocio MD On 05/20/2025 11:24:43 Signed By Thiago Ambrocio MD On 05/20/2025 11:23:58 Thiago Ambrocio MD
== END 2025-05-20 13:08 | disposition home or self-care (01) ==
PROVIDERS: PCP Family Medicine; Referring Provider Internal Medicine Cardiovascular Disease; Visit Provider Internal Medicine Cardiovascular Disease
DX: I25.10 Atherosclerotic heart disease of native coronary artery without angina pectoris (principal); I42.1 Obstructive hypertrophic cardiomyopathy; Z95.5 Presence of coronary angioplasty implant and graft; R07.9 Chest pain, unspecified; I10 Essential (primary) hypertension; I44.7 Left bundle-branch block, unspecified; E78.5 Hyperlipidemia, unspecified; R06.09 Other forms of dyspnea; R53.83 Other fatigue
CPT/HCPCS: 93458; 99152; 99153; Q9967; C1769; C1894